=== PATIENT | female | born 1960 | race Caucasian/White ===

== ENCOUNTER 2020-02-10 00:57 | Outpatient (CLI) | payer OTHER, SELFPAY ==
[2020-02-10 18:31] LABS: SARS-CoV-2 RNA PCR Negative
== END 2020-02-10 00:58 | disposition home or self-care (01) ==
LOC: ANHCOVIDDT 00:57
PROVIDERS: PCP Family Medicine; Visit Provider Orthopaedic Surgery
DX: Z01.812 Encounter for preprocedural laboratory examination (principal); Z11.59 Encounter for screening for other viral diseases
CPT/HCPCS: 87635; C9803; U0003

== ENCOUNTER 2020-02-13 02:05 | Day surgery (SDC) | payer OTHER, SELFPAY ==
[2020-01-31 14:35] VITALS: BMI 31.1
--- NOTE | 2020-02-13 11:12 | WPDHPUPDATE1 ---
History and Physical Update Update Date/Time: 02/13/20 11:12 History and Physical has been reviewed, including an updated exam of the patient. There are NO changes in the patient's condition. Risks, benefits, and alternatives have been discussed and questions answered. Patient agrees to proceed with procedure.
[2020-02-13] MEDS: ACETAMINOPHEN 500 MG TABLET 1000 MG PO (12:22)
[2020-02-13 12:30] VITALS: BP 146/79; PULSE 69; TEMP 36.8; O2SAT 100
--- NOTE | 2020-02-13 13:22 | SUR.PREOP ---
1300- PT UPDATED ON DELAY IN OR ROOM.
--- NOTE | 2020-02-13 13:31 | WPDANESEPPF ---
Anes - Initial Pre Proc Eval Procedure: Operation Date: 02/13/20 13:30 Proposed Procedures p Left Carpal Tunnel Release - Memo Reid MD Date/Time: 02/13/20 13:31 Surgeon: Memo Reid MD Pre Op Diagnosis: Left Carpal Tunnel Syndrome Patient Data Age: 59 Gender: F Height: 5 ft 5 in Weight: 90.3 kg Last Vital Signs Temp 36.8 C 02/13/20 12:30 Pulse 69 02/13/20 12:30 BP 146/79 H 02/13/20 12:30 Pulse Ox 100 02/13/20 12:30 Allergies Allergy/AdvReac Type Severity Reaction Status Date / Time No Known Allergies Allergy Verified 01/31/20 14:30 Home Medications Medication Instructions Recorded Confirmed Type escitalopram oxalate 5 mg tablet 5 mg PO DAILY #90 tablet 09/04/19 01/31/20 Rx aspirin 81 mg chewable tablet 81 mg PO DAILY 12/08/19 01/31/20 History pantoprazole 40 mg tablet,delayed 40 mg PO QAM #90 tablet 12/08/19 01/31/20 Rx release Lacto.acidophilus-Bif.animalis 1 cap PO DAILY 01/31/20 01/31/20 History [Daily Probiotic] biotin [[place] Biotin] 1 mcg PO DAILY 01/31/20 01/31/20 History calcium carbonate [Calcium 600] 1 mg PO DAILY 01/31/20 01/31/20 History omega-3 fatty acids-fish oil [Fish 1 cap PO DAILY 01/31/20 01/31/20 History Oil] Patient hx anesthesia problems: other (slow to awaken) Family hx anesthesia problems: none PMFSH Past Medical History Medical History Anxiety Depression GERD (gastroesophageal reflux disease) Osteoporosis SVT (supraventricular tachycardia) Surgical History Surgical History H/O foot surgery History of carpal tunnel release S/P cervical spinal fusion Family History Family History Mother Family history of thyroid disease Carcinoma of colon Grandparent Family history of psoriasis Family history of malignant neoplasm Family history of congestive heart failure Father Family history of lung cancer Family history of malignant neoplasm Other Family history of cardiovascular disease Hypertension Social History Social History Smoking packs per day: 0.5 Smoking cigarettes per day: 10.0 Years smoked: 15 Smoking pack-years: 7.50 Smoking status: Former smoker Tobacco type: cigarettes Smoking end date: 07/26/98 Alcohol intake: never Substance use: never Substance use type: does not use Living arrangements: with family Gender identity (if verbalized by the patient): Female Spiritual care concerns: No Agree to blood products: Yes Anes - Eval Final PreProcedure Day of Procedure 02/13/20 13:31 Patient weight: overweight Heart: regular rate and rhythm Lungs: clear to auscultation Airway: Mallampati scale class II Neurological: alert and oriented Last oral intake: >/= 8 hours ASA classification: II Emergent: no Anesthetic plan: proceed Anesthesia type and monitoring: general GIVS and standard monitoring Informed Consent: The patient's anesthetic plan and its attendant risks and benefits were discussed with the patient/family/POA. Questions were solicited and answers provided to the satisfaction of the patient/family/POA.
[2020-02-13] MEDS: ceFAZolin 2 GM/D5W 50 ML 2 GM/50 ML BAG IVPB (14:04)
[2020-02-13 15:07] VITALS: BP 145/85; PULSE 79; RESP 12; TEMP 36.3; O2SAT 99
--- NOTE | 2020-02-13 15:07 | PM.OP ---
Procedure Note - Brief Procedure Note - Brief Date of procedure: 02/13/20 Pre-op diagnosis: Left Carpal Tunnel Syndrome Post-op diagnosis: same Procedure performed: L CTR Anesthesia: MAC Surgeon: Memo Reid MD Estimated blood loss (mL): 2 Complications: No immediate complications Condition: stable Disposition: PACU
[2020-02-13 15:35] VITALS: BP 130/80; PULSE 62; RESP 16; O2SAT 99
[2020-02-13 16:05] VITALS: BP 138/90; PULSE 71; RESP 16
--- NOTE | 2020-02-14 12:17 | OP_ITS ---
DATE OF PROCEDURE: 02/13/2020 PREOPERATIVE DIAGNOSIS: Left carpal tunnel syndrome. POSTOPERATIVE DIAGNOSIS: Left carpal tunnel syndrome. PROCEDURE: Left carpal tunnel release. ANESTHESIA: General. COMPLICATIONS: None. INDICATIONS: This is a 59-year-old female with left carpal tunnel syndrome, not responding to conservative measures. She was indicated for left carpal tunnel release. DESCRIPTION OF PROCEDURE: The patient was taken to the operating room in stable condition, placed in the supine position, and then she was given sedation and then the left upper extremity was prepped and draped sterilely from the fingers to the mid forearm. The carpal tunnel was marked with the flexed ring finger over the mid palm and the cardinal line was drawn as well. Next, Marcaine 0.5% without epinephrine was injected into the skin, into the subcutaneous tissues and the carpal tunnel region. The tourniquet was inflated and incision was made in the mid palm down to the subcutaneous tissues into the palmar fascia was identified. The palmar fascia then was incised until the carpal tunnel was identified, using a mosquito hemostat. The median nerve was then identified and then protecting the medial nerve with the hemostats placed in the carpal tunnel. The palmar fascia then was incised into the entirety down to the transcarpal ligament proximally and to the cardinal line distally. Once the transcarpal ligament was identified with direct visualization, the transcarpal ligament was incised with the Metzenbaum scissors. The carpal tunnel was completely released. There was no injury to the median nerve. The tourniquet was deflated. Bleeders were cauterized. The wound was irrigated thoroughly. The skin edges were approximated with 4-0 nylon suture. Sterile dressing was applied. The patient was then sent to recovery in stable condition. D I MT: Kierra
== END 2020-02-13 16:19 | disposition home or self-care (01) ==
PROVIDERS: PCP Family Medicine; Visit Provider Orthopaedic Surgery
PROC: (CPT 64721; principal; 2020-02-13 13:30)
DX: G56.02 Carpal tunnel syndrome, left upper limb (principal); K21.9 Gastro-esophageal reflux disease without esophagitis; I47.1 Supraventricular tachycardia; M81.0 Age-related osteoporosis without current pathological fracture; F41.8 Other specified anxiety disorders; Z79.82 Long term (current) use of aspirin; Z98.1 Arthrodesis status; Z87.891 Personal history of nicotine dependence
CPT/HCPCS: 64721; A9270; J0690; J2250; J2405; J2704; J3010

== ENCOUNTER → 2020-03-19 15:16 | Outpatient (CLI) | payer OTHER, SELFPAY ==
--- NOTE | ~2020-03-19 | XR_ITS ---
EXAMINATION: XR knee RT 3V DATE: 03/19/2020 16:19 INDICATION: Right knee pain. TECHNIQUE: 3 views of right knee were obtained. COMPARISON: None. FINDINGS: Bone alignment is normal. No fracture. There is mild osteoarthritis of medial and patellofe moral compartments. No knee joint effusion. IMPRESSION: 1. Mild right knee osteoarthritis. Reviewed, dictated and finalized at location B.
--- NOTE | ~2020-03-19 | US_ITS ---
EXAMINATION: US venous doppler LE RT DATE: 03/19/2020 15:40 INDICATION: Right lower limb pain TECHNIQUE: Grayscale ultrasound images without and with compression and Doppler ultrasound images of the right lower extremity veins were obtained. COMPARISON: None. FINDINGS: The visualized portions of right common femoral vein, profunda (deep) femoral vein, femoral vein, pop liteal vein, peroneal trunk, posterior tibial veins, peroneal veins, gastrocnemius vein and greater s aphenous vein outflow are patent. 2.5 x 1.2 x 1.7 cm hypoechoic, centrally hyperechoic mass at [facility] popliteal fossa most likely representing a popliteal lymph node with central fatty hilum. IMPRESSION: 1. No deep venous thrombosis in the right lower limb. 2. 2.5 x 1.2 x 1.7 cm mildly enlarged, likely reactive right popliteal lymph node. Reviewed, dictated and finalized at location A. IMPRESSION: 1. No deep venous thrombosis in the right lower limb. 2. 2.5 x 1.2 x 1.7 cm mildly enlarged, likely reactive right popliteal lymph no de.
--- NOTE | ~2020-03-19 | XR_ITS ---
XR foot RT min 3V 03/19/2020 16:19 INDICATION: Right foot pain PROCEDURE: 4 views right foot COMPARISON: No prior studies for comparison. FINDINGS: Fracture, dislocation or subluxation is not identified. Lisfranc joint intact. The soft tis sues appear within normal limits. No foreign bodies are identified. There are degenerative calcaneal enthesophytes. Mild osteoarthritis of the first MTP joint. IMPRESSION: 1: NO ACUTE BONE OR JOINT ABNORMALITY IDENTIFIED. Reviewed, dictated and finalized at location A.
== END ==
PROVIDERS: PCP Family Medicine; Visit Provider Family Medicine
DX: M17.11 Unilateral primary osteoarthritis, right knee (principal); M79.89 Other specified soft tissue disorders; M79.673 Pain in unspecified foot
CPT/HCPCS: 73562; 73630; 93971

== ENCOUNTER 2020-06-10 08:35 | Outpatient (CLI) | payer OTHER, SELFPAY ==
--- NOTE | ~2020-06-10 | MR_ITS ---
EXAMINATION: MR knee RT wo con DATE: 06/10/2020 10:10 INDICATION: Right knee pain. Mass behind the right knee. TECHNIQUE: Magnetic resonance imaging (MRI) of the right knee was performed without intravenous contr ast. Sequences included coronal PD-weighted FSE, coronal PD-weighted FS FSE, sagittal T2-weighted FS E, sagittal PD-weighted FS FSE and axial PD weighted fat saturated FSE. COMPARISON: None. FINDINGS: Medial compartment: Medial meniscus is normal. Partial-thickness chondral ulceration along the anterior to central weight bearing medial femoral condyle. Partial thickness cartilage loss with smooth chondral surface along t he anterior third of the medial tibial plateau. Lateral compartment: Lateral meniscus is normal. Articular cartilage is normal. Patellofemoral compartment: Deep chondral fissuring at the medial patellar facet, apical ridge and medial side of the lateral fac et with barely discernible subarticular edema at the apical ridge. Trochlear cartilage appears relati vely preserved. Ligaments and tendons: Anterior and posterior cruciate ligaments are normal. The medial collateral ligament and fibular carter ateral ligament complex are normal. The extensor mechanism is normal. The visualized medial and later al hamstring tendons as well as the iliotibial band are normal. Fluid: Physiologic amount of fluid in the joint space. No loose osteochondral bodies identified. Mild prepat ellar edema without discrete bursal fluid collection. 8 x 6 mm T2 fluid signal intensity lesion in th e popliteal fat posterior to the femoral insertion of the medial head of the gastrocnemius and ultrasound specialist ior to the semitendinosus. No evident internal flow void to suggest vascular lesion in this most like ly represents a small ganglion cyst. More caudal tiny Méndez's cyst. Osseous/other: Bone alignment is normal. Low signal intensity bone island at the posterior lateral femoral condyle. No fracture or pathologic marrow replacing process. No abnormal soft tissue masses identified. IMPRESSION: 1. Mild medial and patellofemoral osteoarthritis with moderate grade chondromalacia. 2. 8 x 6 mm T2 fluid intensity lesion in the popliteal fat posterior to the lateral epicondylar femur is likely representing a small ganglion cyst. No soft tissue masses identified. Reviewed, dictated and finalized at location H. CUTTER DIAMOND IMPRESSION: 1. Mild medial and patellofemoral osteoarthritis with moderate grade chondromal acia. 2. 8 x 6 mm T2 fluid intensity lesion in the popliteal fat posterior to the lat eral epicondylar femur is likely representing a small ganglion cyst. No soft ti ssue masses identified.
== END 2020-06-10 08:36 | disposition home or self-care (01) ==
PROVIDERS: PCP Family Medicine; Visit Provider Orthopaedic Surgery
DX: M17.11 Unilateral primary osteoarthritis, right knee (principal)
CPT/HCPCS: 73721

== ENCOUNTER → 2020-06-13 13:25 | Outpatient (CLI) | payer OTHER, SELFPAY ==
--- NOTE | ~2020-06-13 | MM_ITS ---
EXAMINATION: MM screening [facility] BI w aura HISTORY: Screening mammogram TECHNIQUE: Craniocaudal and mediolateral oblique 3-D tomosynthesis images were obtained and synthetic 2-D images were generated. CAD analysis was submitted and interpreted. COMPARISON: 05/15/2019, 04/29/2018, 04/26/2017 BREAST PARENCHYMAL COMPOSITION: There are scattered areas of fibroglandular density. FINDINGS: There is no evidence of suspicious mass, calcification, or architectural distortion to sugg est malignancy in either breast. There has been no suspicious interval change. IMPRESSION: 1. No mammographic evidence of malignancy. 2. Recommend routine screening mammography in one year. BI-RADS Category 1: Negative Reviewed, dictated and finalized at location A. FACULTY
== END ==
PROVIDERS: PCP Family Medicine; Visit Provider Nurse Practitioner
DX: Z12.31 Encounter for screening mammogram for malignant neoplasm of breast (principal)
CPT/HCPCS: 77063; 77067

== ENCOUNTER 2021-08-19 07:45 | Outpatient (CLI) | payer BC, SELFPAY ==
--- NOTE | ~2021-08-19 | US_ITS ---
EXAMINATION: US abdomen complete EXAM DATE: 08/19/2021 08:12 INDICATION: R10.11 - Right upper quadrant pain. TECHNIQUE: Multiple grayscale and Doppler images of the complete abdomen were obtained (by a technolo gist who performed the scan) and subsequently reviewed. Comparison is made to prior examination from 02/13/2019. FINDINGS: The abdominal aorta is normal in caliber. Visualized portion IVC is patent. The pancreatic head a nd body are normal in appearance. The pancreatic tail is not visualized. The liver has normal echogenicity and contour. There are no focal liver lesions identified. There is no evidence of intrahepatic biliary duct dilation. Portal venous flow was seen in the hepatopedal , normal direction and has normal Doppler waveform. Common bile duct measures 4 mm, which is normal. The gallbladder wall is normal in thickness, with ex pected amount of distention. No sonographic evidence of pericholecystic fluid. There is no cholelit hiases. Technologist performing exam reports patient did not demonstrate sonographic Hayes's sign. Please note that this sign is less reliable in patients who have received pain medication. Right kidney: There is normal contour and echogenicity. It measures 11.8 x 4.1 x 5.6 centimeters. There are no focal renal lesions identified. There is no hydronephrosis. Left kidney: There is normal contour and echogenicity. It measures 11.8 x 5.4 x 4.8 centimeters. Th ere is a cyst measuring 3.4 cm. There is no hydronephrosis. The spleen measures 11.7 centimeters and is morphologically normal. IMPRESSION: Unremarkable complete abdominal ultrasound exam. Reviewed, dictated and finalized at location A. CLEANER STRE[address] LIGHT
--- NOTE | ~2021-08-19 | XR_ITS ---
EXAMINATION: XR chest 2V 08/19/2021 08:20 INDICATION: Chest pain PROCEDURE: 2 view chest COMPARISON: 07/14/2019 FINDINGS: The lungs are clear. The cardiomediastinal silhouette is within normal limits. There are no pleural effusions. There is no pneumothorax suspected. IMPRESSION: 1: NO ACUTE CARDIOPULMONARY DISEASE. Reviewed, dictated and finalized at location B. 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
== END 2021-08-19 07:46 ==
PROVIDERS: PCP Family Medicine; Visit Provider Family Medicine
DX: R10.11 Right upper quadrant pain (principal); M54.9 Dorsalgia, unspecified
CPT/HCPCS: 71046; 76700

== ENCOUNTER → 2021-10-06 17:47 | Outpatient (CLI) | payer BC, SELFPAY ==
--- NOTE | ~2021-10-06 | MM_ITS ---
EXAMINATION: MM screening [facility] BI w aura HISTORY: Screening mammogram TECHNIQUE: Craniocaudal and mediolateral oblique 3-D tomosynthesis images were obtained and synthetic 2-D images were generated. CAD analysis was submitted and interpreted. COMPARISON: 06/13/2020, 05/15/2019, 04/29/2018 BREAST PARENCHYMAL COMPOSITION: There are scattered areas of fibroglandular density. FINDINGS: There is no evidence of suspicious mass, calcification, or architectural distortion to sugg est malignancy in either breast. There has been no suspicious interval change. IMPRESSION: 1. No mammographic evidence of malignancy. 2. Recommend routine screening mammography in one year. BI-RADS Category 1: Negative Reviewed, dictated and finalized at location A.
== END ==
PROVIDERS: Visit Provider Nurse Practitioner
DX: Z12.31 Encounter for screening mammogram for malignant neoplasm of breast (principal)
CPT/HCPCS: 77063; 77067

== ENCOUNTER → 2021-10-30 17:54 | Outpatient (CLI) | payer BC, SELFPAY ==
--- NOTE | ~2021-10-30 | DEXA_ITS ---
Bone Density Report Name: GEORGE GUNN Age: 61 Sex: Female Ethnicity: White Date of : 1960 Indication: postmenopausal; screening for osteoporosis; height loss; Referring Provider: José Miguel, Raquel Study: Bone densitometry was performed. Exam Date: October 30, 2021 Accession number: [id number] Bone Density: Region BMD T-score Z-score Classification AP Spine (L1-L4) 1.110 0.6 1.9 Normal Femoral Neck (Left) 0.700 -1.3 -0.1 Osteopenia Total Hip (Left) 0.907 -0.3 0.6 Normal Femoral Neck (Right) 0.788 -0.5 0.7 Normal Total Hip (Right) 0.962 0.2 1.1 Normal Total Hip Mean 0.935 -0.1 0.9 Normal World Health Organization criteria for BMD impression classify patients as: Normal (T-score at or above -1.0), Osteopenia (T-score between -1.0 and -2.5), or Osteoporosis (T-score at or below -2.5). 10-year Fracture Risk(1): Major Osteoporotic Fracture 7.1% Hip Fracture 0.5% Reported Risk Factors: [place] (), Neck BMD=0.700, BMI=30.8 (1) FRAX(R) Version 3.08. Fracture probability calculated for an untreated patient. Fracture probability may be lower if the patient has received treatment. Previous Exams: Region Exam Age BMD T-score BMD Change BMD Change Date g/cm2 vs Baseline vs Previous AP Spine(L1-L4) 10/30/2021 61 1.110 0.6 0.139 0.104 04/29/2018 57 1.006 -0.4 0.035* 0.035* 04/17/2015 54 0.971 -0.7 Total Hip(Left) 10/30/2021 61 0.907 -0.3 -0.025 0.000 04/29/2018 57 0.907 -0.3 -0.025 -0.025 04/17/2015 54 0.932 -0.1 Total Hip(Right) 10/30/2021 61 0.962 0.2 -0.012 0.010 04/29/2018 57 0.952 0.1 -0.021 -0.021 04/17/2015 54 0.973 0.3 *Denotes significance at 95% confidence level, LSC for AP Spine = 0.022 g/cm2, LSC for Total Hip = 0.027 g/cm2 Clinical Information Provided by Patient: Has used the following medications: Vitamin D, Calcium Patient maximum height was 67.0 Menopause Age: 53 No regular weight bearing exercise Onset of menses at age 13 Number of children 2 Impression: The patient has low bone mass, based on the Left Femoral Neck T-score. The patient has an estimated ten-year risk of hip fracture of 0.5% and an estimated ten-year risk of major fracture of 7.1%, based on the WHO FRAX algorithm. No significant bone loss was observed. Discussion: BONE DE
== END ==
PROVIDERS: Visit Provider Nurse Practitioner
DX: Z13.820 Encounter for screening for osteoporosis (principal); M85.852 Other specified disorders of bone density and structure, left thigh
CPT/HCPCS: 77080

== ENCOUNTER 2022-06-29 11:10 | Outpatient (CLI) | payer BC, SELFPAY ==
[2022-06-29 12:19] LABS: Alanine Aminotransferase 21 U/L (6-35); Albumin Level 4.5 g/dL (3.5-5.1); Alkaline Phosphatase 87 U/L (38-126); Anion Gap 8 mmol/L (8-16); Aspartate Amino Transferase 21 U/L (14-36); Bilirubin,Total 0.7 mg/dL (0.2-1.3); Blood Urea Nitrogen 15 mg/dL (7-17); Calcium 9.5 mg/dL (8.4-10.2); Carbon Dioxide 30 mmol/L (22-30); Chloride 104 mmol/L (98-107); Cholesterol 190 mg/dL (0-200); Estimated Glomerular Filt Rate > 60; Glucose 89 mg/dL (65-110); HDL Direct 55 mg/dL; Potassium 4.3 mmol/L (3.4-5.0); Sodium 142 mmol/L (137-145); Triglycerides 103 mg/dL (<150)
[2022-06-29 12:23] LABS: Rheumatoid Factor < 8.6 IU/ML (<12)
[2022-06-29 12:30] LABS: LDL Cholesterol Direct 91 mg/dL
[2022-06-29 12:49] LABS: Thyroid Stimulating Hormone 0.031 uIU/mL (0.465-4.680)
== END 2022-06-29 11:11 | disposition home or self-care (01) ==
LOC: ANHLAB 11:12
PROVIDERS: PCP Emergency Medicine; Visit Provider Emergency Medicine
DX: F41.9 Anxiety disorder, unspecified (principal); F32.9 Major depressive disorder, single episode, unspecified; M25.50 Pain in unspecified joint; K21.9 Gastro-esophageal reflux disease without esophagitis; Z13.0 Encounter for screening for diseases of the blood and blood-forming organs and certain disorders involving the immune mechanism
CPT/HCPCS: 36415; 80053; 80061; 84443; 86038; 86430

== ENCOUNTER 2022-08-04 15:52 | Outpatient (CLI) | payer BC, SELFPAY ==
[2022-08-04 16:19] LABS: Alanine Aminotransferase 26 U/L (6-35); Aspartate Amino Transferase 25 U/L (14-36)
== END 2022-08-04 15:53 | disposition home or self-care (01) ==
LOC: ANHLAB 15:53
PROVIDERS: PCP Emergency Medicine; Visit Provider Podiatrist Foot & Ankle Surgery
DX: B35.1 Tinea unguium (principal)
CPT/HCPCS: 36415; 84450; 84460

== ENCOUNTER 2022-09-28 08:58 | Outpatient (CLI) | payer BC, SELFPAY ==
--- NOTE | ~2022-09-28 | XR_ITS ---
EXAMINATION: XR foot RT standing 2V DATE: 09/28/2022 10:03 INDICATION: Rheumatoid arthritis without rheumatoid factor. TECHNIQUE: 2 views of right foot with weightbearing were obtained. COMPARISON: None. FINDINGS: Bone alignment is normal. No fracture. There is mild osteoarthritis of fourth distal interp halangeal joint. There are enthesophytes at the posterior and plantar aspects of calcaneal tuberosity . IMPRESSION: 1. No evidence of inflammatory arthropathy. Reviewed, dictated and finalized at location A. EAD WORKER
--- NOTE | ~2022-09-28 | XR_ITS ---
XR lumbar spine min 4V DATE: 09/28/2022 10:03 INDICATION: Rheumatoid arthritis TECHNIQUE: AP, lateral, coned lateral lumbosacral and bilateral oblique views COMPARISON: None FINDINGS: There is degenerative changes apophyseal joints in the lower lumbar and lumbosacral area wi th associated grade 1 anterolisthesis at L5-S1. Multilevel degenerative disc disease, particularly severe at L1-2, moderately severe to L4-5 and L5-S 1. No fracture or bone destruction or spondylolisthesis is noted. The included lower thoracic and lumbar pedicles are intact. The sacroiliac joints are intact. Osteopenia. IMPRESSION: Multilevel degenerative disc disease, very severe at L1-2, moderately severe at L4-5 and L5-S1 Prominent degenerative changes apophyseal joints in the lower lumbar levels secondary with associated grade 1 anterolisthesis at L5-S1 Reviewed, dictated and finalized at location B. 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
--- NOTE | ~2022-09-28 | XR_ITS ---
EXAMINATION: XR foot LT standing 2V DATE: 09/28/2022 10:03 INDICATION: Rheumatoid arthritis without rheumatoid factor. TECHNIQUE: 2 views of left foot standing were obtained. COMPARISON: None. FINDINGS: There is mild hallux valgus. No fracture. There is mild osteoarthritis of first metatarsoph alangeal joint, talonavicular joint, and fourth distal interphalangeal joint. There are enthesophytes at the posterior and plantar aspects of calcaneal tuberosity. IMPRESSION: 1. Mild polyarticular osteoarthritis. 2. Mild hallux valgus. Reviewed, dictated and finalized at location A. ER TYPE BAR AND SEGMENT
--- NOTE | ~2022-09-28 | XR_ITS ---
EXAM: XR hand BI arthritis min 3V DATE: 09/28/2022 10:03 HISTORY: M06.041 - Rheumatoid arthritis without rheumatoid factor,... . COMPARISON: X-ray left hand 02/13/2019. FINDINGS: Mildly decreased mineralization. Typical osteoarthritic joint space changes in the DIP christiana nts of the fingers, PIP joints of the thumbs, and second and third MCP joints. Hooked osteophytes off of several metacarpal heads. Changes are most severe in the right third MCP joint, where there are a lso large subchondral cysts. Bilateral ulnar negative variance. No acute fracture or dislocation. Old right hamate fracture. IMPRESSION: Polyarticular osteoarthritis of the hands. Reviewed, dictated and finalized at location K. DITER SERVICE ORDER
--- NOTE | ~2022-09-28 | XR_ITS ---
XR sacroiliac joints min 3V DATE: 09/28/2022 10:03 INDICATION: Rheumatoid arthritis TECHNIQUE: AP and bilateral oblique views COMPARISON: None FINDINGS: The sacroiliac joints are intact without evidence of erosive change, ankylosis or significa nt degenerative change. Moderately severe degenerative disc disease at L4-5 and L5-S1. IMPRESSION: Negative sacroiliac joints Reviewed, dictated and finalized at Location A. Reviewed, dictated and finalized at location B. TICE REPRESENTATIVE IMPRESSION: Negative sacroiliac joints
== END 2022-09-28 08:59 ==
LOC: MICIMG 09:00
PROVIDERS: PCP Emergency Medicine; Visit Provider Internal Medicine
DX: M06.041 Rheumatoid arthritis without rheumatoid factor, right hand (principal); M06.042 Rheumatoid arthritis without rheumatoid factor, left hand; M19.041 Primary osteoarthritis, right hand; M19.042 Primary osteoarthritis, left hand; M19.071 Primary osteoarthritis, right ankle and foot; M20.11 Hallux valgus (acquired), right foot; M51.36 Other intervertebral disc degeneration, lumbar region
CPT/HCPCS: 72110; 72202; 73130; 73620

== ENCOUNTER 2022-12-04 09:42 | Outpatient (CLI) | payer BC, SELFPAY ==
--- NOTE | ~2022-12-04 | MR_ITS ---
MRI of the right hand CLINICAL HISTORY: Pain TECHNIQUE: Axial T1-weighted, T1 fat-sat, and T2 fat-sat images, sagittal T1-weighted and T2 fat-sat images, and coronal T1-weighted and T2 fat-sat images were performed. Following intravenous administr ation of 17 cc MultiHance gadolinium, T1-weighted fat-sat imaging was performed in the axial and sagi ttal planes. FINDINGS: There is no fracture or osteomyelitis. There is severe degenerative change at the third met acarpophalangeal joint with joint space narrowing and subchondral cystic change about the joint. Ther e is moderate degenerative change of the second metacarpophalangeal joint. There are mild to moderate degenerative changes throughout the distal interphalangeal joints of the hand. No significant joint effusion identified. Flexor and extensor tendons are intact. No soft tissue mass or fluid collection evident. No suspicious postcontrast enhancement identified. IMPRESSION: Severe osteoarthritis of the third metacarpophalangeal joint. Moderate degenerative change of the second MCP joint and the DIP joints. Reviewed, dictated and finalized at location .
--- NOTE | ~2022-12-04 | MR_ITS ---
MRI of the left hand CLINICAL HISTORY: Pain TECHNIQUE: Axial T1-weighted, T2 fat-sat, STIR, and T1 fat-sat images, coronal T1-weighted and STIR i mages, and sagittal T1-weighted and STIR images were performed. Following intravenous administration of 70 cc MultiHance gadolinium, T1-weighted fat-sat imaging was performed in the axial and sagittal p lanes. FINDINGS: No significant bone marrow signal abnormality seen. There is no bone marrow edema, fracture , or evidence for osteomyelitis. There is mild to moderate osteoarthritic change of the second and th ird metacarpophalangeal joints. There is a small ganglion cyst along the dorsal margin of the third m etacarpal head, measuring 5 mm in diameter. There is mild degenerative change at the first metacarpop halangeal joint. There is mild degenerative change diffusely of the DIP joints. Flexor and extensor tendons are intact. No other soft tissue mass or fluid collection evident. No suspicious postcontrast enhancement identified. IMPRESSION: Scattered degenerative changes, as noted above, worst at the second and third metacarpophalangeal christiana nts. 5 mm ganglion cyst along the dorsal margin of the third metacarpal head. Reviewed, dictated and finalized at [facility]. IMPRESSION: Scattered degenerative changes, as noted above, worst at the second and third m etacarpophalangeal joints. 5 mm ganglion cyst along the dorsal margin of the third metacarpal head.
== END 2022-12-04 09:43 ==
PROVIDERS: PCP Internal Medicine; Visit Provider Internal Medicine
DX: M06.041 Rheumatoid arthritis without rheumatoid factor, right hand (principal); M06.042 Rheumatoid arthritis without rheumatoid factor, left hand; M19.041 Primary osteoarthritis, right hand; M19.042 Primary osteoarthritis, left hand
CPT/HCPCS: 73220; A9577

== ENCOUNTER → 2022-12-07 12:39 | Outpatient (CLI) | payer BC, SELFPAY ==
--- NOTE | ~2022-12-07 | MM_ITS ---
EXAMINATION: MM screening [facility] BI w aura HISTORY: Screening mammogram TECHNIQUE: Craniocaudal and mediolateral oblique 3-D tomosynthesis images were obtained and synthetic 2-D images were generated. CAD analysis was submitted and interpreted. COMPARISON: 10/06/2021, 06/13/2020, 05/15/2019 BREAST PARENCHYMAL COMPOSITION: There are scattered areas of fibroglandular density. FINDINGS: No suspicious mass, calcification, or architectural distortion are identified in either jared ast to suggest malignancy. There has been no suspicious interval change. IMPRESSION: 1. No mammographic evidence of malignancy. 2. Recommend routine screening mammography in one year. BI-RADS Category 1: Negative Reviewed, dictated and finalized at location A.
== END ==
PROVIDERS: Visit Provider Nurse Practitioner
DX: Z12.31 Encounter for screening mammogram for malignant neoplasm of breast (principal)
CPT/HCPCS: 77063; 77067

== ENCOUNTER 2023-06-29 10:21 | Outpatient (CLI) | payer BC, SELFPAY ==
[2023-06-29 10:55] LABS: Alanine Aminotransferase 24 U/L (6-35); Aspartate Amino Transferase 28 U/L (14-36)
== END 2023-06-29 10:22 | disposition home or self-care (01) ==
LOC: ANHLAB 10:23
PROVIDERS: PCP Emergency Medicine; Visit Provider Podiatrist Foot & Ankle Surgery
DX: B35.1 Tinea unguium (principal)
CPT/HCPCS: 36415; 84450; 84460

== ENCOUNTER 2023-09-27 10:41 | Outpatient (CLI) | payer BC, SELFPAY ==
[2023-09-27 11:31] LABS: Alanine Aminotransferase 23 U/L (6-35); Aspartate Amino Transferase 24 U/L (14-36)
== END 2023-09-27 10:42 | disposition home or self-care (01) ==
LOC: ANHLAB 10:43
PROVIDERS: PCP Nurse Practitioner Family; Visit Provider Podiatrist Foot & Ankle Surgery
DX: B35.1 Tinea unguium (principal)
CPT/HCPCS: 36415; 84450; 84460

== ENCOUNTER 2023-12-27 11:08 | Outpatient (CLI) | payer BC, SELFPAY ==
[2023-12-27 12:13] LABS: Alanine Aminotransferase 17 U/L (6-35); Aspartate Amino Transferase 34 U/L (14-36)
== END 2023-12-27 11:09 | disposition home or self-care (01) ==
LOC: ANHLAB 11:11
PROVIDERS: PCP Nurse Practitioner Family; Visit Provider Podiatrist Foot & Ankle Surgery
DX: B35.1 Tinea unguium (principal)
CPT/HCPCS: 36415; 84450; 84460

== ENCOUNTER 2024-01-31 08:47 | Outpatient (CLI) | payer BC, SELFPAY ==
--- NOTE | ~2024-01-31 | MR_ITS ---
MR cervical spine wo con Ordering provider: Esthela Langston History: 63 years Female with . CERVICAL MYELOPATHY . Comparison: None. Technique: MRI cervical spine without contrast. FINDINGS: CERVICAL SPINAL CORD/CRANIAL CERVICAL JUNCTION: Normal in signal and caliber. Postoperative changes s een anteriorly. Minimal anterolisthesis at the level of C7-T1. CERVICAL VERTEBRAL BODIES: Metallic artifacts are seen in the vertebrae. DISK SPACES: Narrowing of the disc C6-C7 and C7-T1. Multilevel facet joint disease. C2-C3: No stenosis. C3-C4: Mild spinal canal stenosis secondary to broad based disc bulge. bilateral intervertebral fora danuta narrowing and the root compression. C4-C5: Mild spinal canal stenosis secondary to broad based disc bulge. Bilateral narrowing of the fo ramina with root compression. C5-C6: No stenosis. C6-C7: No stenosis. C7-T1: No stenosis. VISUALIZED PARASPINOUS SOFT TISSUES: Normal. IMPRESSION: 1. No acute osseous abnormality. 2. Postoperative changes at multiple levels. 3. Minimal anterolisthesis at the level of C7-T1. 4. C3-C4, and C4-C5 mild spinal canal stenosis with intervertebral foraminal narrowing and the root compression. Reviewed, dictated and finalized at location A. IMPRESSION: 1. No acute osseous abnormality. 2. Postoperative changes at multiple levels. 3. Minimal anterolisthesis at the level of C7-T1. 4. C3-C4, and C4-C5 mild spinal canal stenosis with intervertebral foraminal n arrowing and the root compression.
== END 2024-01-31 08:48 ==
DX: M47.12 Other spondylosis with myelopathy, cervical region (principal)
CPT/HCPCS: 72141

== ENCOUNTER 2024-02-07 13:29 | Outpatient (CLI) | payer BC, SELFPAY ==
--- NOTE | ~2024-02-07 | MM_ITS ---
EXAMINATION: MM screening tony BI w aura HISTORY: Screening TECHNIQUE: Craniocaudal and mediolateral oblique 3-D tomosynthesis images were obtained and synthetic 2-D images were generated. CAD analysis was submitted and interpreted. COMPARISON: Comparison to multiple prior studies sequentially, with oldest reviewed study dated 08/2016. BREAST PARENCHYMAL COMPOSITION: Not dense: There are scattered areas of fibroglandular density. FINDINGS: There is no evidence of suspicious mass, calcification, or architectural distortion to sugg est malignancy in either breast. There has been no suspicious interval change. IMPRESSION: 1. No mammographic evidence of malignancy. 2. Recommend routine screening mammography in one year. BI-RADS Category 1: Negative Reviewed, dictated and finalized at location B.
== END 2024-02-07 13:30 ==
LOC: MICIMG 13:30
PROVIDERS: PCP Nurse Practitioner Family; Visit Provider Nurse Practitioner
DX: Z12.31 Encounter for screening mammogram for malignant neoplasm of breast (principal)
CPT/HCPCS: 77063; 77067

== ENCOUNTER 2024-02-14 09:50 | Outpatient (CLI) | payer BC, SELFPAY ==
--- NOTE | ~2024-02-14 | CT_ITS ---
CT cervical spine wo con Ordering provider: Avelina Zapata History: . Cervical myelopathy . Comparison: None. Technique: CT of the cervical spine was performed without contrast. Sagittal and coronal reformatted images were also obtained and reviewed. Automated exposure control and iterative reconstruction dimitrios hnique were employed. The dose-length product was 167.20 mGy-cm. FINDINGS: VERTEBRAE: Minimal anterolisthesis at the level of C7-T1 and T3/T4. No subluxation or acute fracture. The occipital condyles are intact. Postoperative changes seen anteriorly at the level of C4, C5 and C6.. DISC SPACES: Disc spacers seen at the level of C4-C5 and C5-C6. Degenerative disc disease seen at the level of C3-C4 and C6-C7 osteoarthritic changes of the middle atlantoaxial joint is seen. Multileve l facet joint disease. Multilevel uncovertebral joint osteoarthritic changes. Bilateral narrowing of the foramina at the level of C3-C4, right C4-C5, right C5-C6 PARASPINOUS SOFT TISSUES: Normal. IMPRESSION: No acute osseous abnormality cervical spine. Postoperative changes. Multilevel degenerative disc disease. Reviewed, dictated and finalized at location A.
== END 2024-02-14 09:51 ==
PROVIDERS: PCP Nurse Practitioner Family
DX: M50.30 Other cervical disc degeneration, unspecified cervical region (principal)
CPT/HCPCS: 72125

== ENCOUNTER 2024-02-28 11:46 | Outpatient (CLI) | payer BC, SELFPAY ==
[2024-02-28 18:52] LABS: Alanine Aminotransferase 18 U/L (6-35); Albumin Level 4.4 g/dL (3.5-5.1); Alkaline Phosphatase 65 U/L (38-126); Anion Gap 6 mmol/L (4-12); Aspartate Amino Transferase 34 U/L (14-36); Bilirubin,Total 0.8 mg/dL (0.2-1.3); Blood Urea Nitrogen 10 mg/dL (7-17); Calcium 9.7 mg/dL (8.4-10.2); Carbon Dioxide 33 mmol/L (22-30); Chloride 100 mmol/L (98-107); Cholesterol 180 mg/dL (0-200); Estimated Glomerular Filt Rate > 60; Glucose 74 mg/dL (65-110); HDL Direct 53 mg/dL; Potassium 4.8 mmol/L (3.4-5.0); Sodium 139 mmol/L (137-145); Triglycerides 95 mg/dL (<150)
[2024-02-28 19:03] LABS: LDL Cholesterol Direct 85 mg/dL
[2024-02-28 19:10] LABS: Basophils Absolute Auto 0.1 K/mm3 (0.0-0.1); Basophils Percent Auto 0.9 % (0.2-1.2); Eosinophils Absolute Auto 0.2 K/mm3 (0-0.3); Eosinophils Percent Auto 2.6 % (0-4.4); Hematocrit 44.8 % (37.0-47.0); Hemoglobin 14.6 g/dL (12.0-15.0); Immature Granulocyte Absolute 0.01 K/mm3 (0.00-0.031); Immature Granulocyte Percent A 0.2 % (0-0.5); Lymphocytes Absolute Auto 1.69 K/mm3 (0.9-3.2); Lymphocytes Percent Auto 29.6 % (18.3-44.2); Mean Corpuscular HGB Conc 32.6 g/dl (32-36); Mean Corpuscular Hemoglobin 32.5 pg (26-34); Mean Corpuscular Volume 99.8 fl (80-100); Mean Platelet Volume 11.6 fl (7.4-10.4); Monocytes Absolute Auto 0.5 K/mm3 (0.1-0.6); Monocytes Percent Auto 8.8 % (2.6-8.5); Neutrophils Absolute Auto 3.3 K/mm3 (1.3-6.7); Neutrophils Percent Auto 57.9 % (45.5-73.1); Platelet Count Result 184 k/mm3 (150-375); Red Blood Count 4.49 M/mm3 (4.2-5.4); Red Cell Distribution Width 12.3 % (11.5-14.5); White Blood Count 5.7 K/mm3 (4.5-10.0)
[2024-02-28 20:21] LABS: Thyroid Stimulating Hormone Reflex 0.029 uIU/mL (0.465-4.68)
[2024-02-28 21:21] LABS: Free T4 Free Thyroxine Reflex 1.77 ng/dL (0.78-2.19)
[2024-02-28 22:31] LABS: Total Triiodothyronine (T3) 1.37 NG/ML (0.97-1.69)
[2024-02-28 23:55] LABS: Hemoglobin A1C 5.3 % (<5.7)
== END 2024-02-28 11:47 | disposition home or self-care (01) ==
LOC: ANHGOSHLAB 11:48
PROVIDERS: PCP Nurse Practitioner Family; Visit Provider Nurse Practitioner Family
DX: M06.041 Rheumatoid arthritis without rheumatoid factor, right hand (principal); M06.042 Rheumatoid arthritis without rheumatoid factor, left hand; M15.9 Polyosteoarthritis, unspecified; K21.9 Gastro-esophageal reflux disease without esophagitis; R73.01 Impaired fasting glucose; I47.19 Other supraventricular tachycardia
CPT/HCPCS: 36415; 80053; 80061; 83036; 84439; 84443; 84480; 85025

== ENCOUNTER 2024-06-26 11:29 | Outpatient (CLI) | payer BC, SELFPAY ==
--- NOTE | ~2024-06-26 | XR_ITS ---
Right Shoulder Technique: AP and scapular Y views were obtained. Clinical History: Pain Findings: No fracture or dislocation is seen. Osseous alignment is anatomic. The glenohumeral and acr omioclavicular joint spaces are preserved. Soft tissues are unremarkable. Impression: Unremarkable right shoulder radiographs. Reviewed, dictated and finalized at [facility]. GER OF SELECTION AND ASSESSMENT Impression: Unremarkable right shoulder radiographs.
--- NOTE | ~2024-06-26 | XR_ITS ---
Left Shoulder Technique: AP and scapular Y views were obtained. Clinical History: Pain Findings: No fracture or dislocation is seen. Osseous alignment is anatomic. The glenohumeral and acr omioclavicular joint spaces are preserved. Soft tissues are unremarkable. Impression: Unremarkable left shoulder radiographs. Reviewed, dictated and finalized at [facility]. 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
== END 2024-06-26 11:30 | disposition home or self-care (01) ==
PROVIDERS: PCP Nurse Practitioner Family; Visit Provider Nurse Practitioner Family
DX: M25.511 Pain in right shoulder (principal); M25.512 Pain in left shoulder
CPT/HCPCS: 73030

== ENCOUNTER 2024-07-10 14:21 | Outpatient (CLI) | payer BC, SELFPAY ==
--- NOTE | ~2024-07-10 | MR_ITS ---
EXAMINATION: MR shoulder LT wo con DATE: 07/11/2024 08:39 INDICATION: Left shoulder pain TECHNIQUE: Magnetic resonance imaging (MRI) of the left shoulder was performed without intravenous co ntrast. Sequences included axial PD-weighted FS FSE, coronal oblique PD-weighted FS FSE, coronal obli que T2-weighted FS FSE, sagittal PD-weighted FS FSE, and sagittal T1-weighted SE. COMPARISON: None. FINDINGS: Coracoacromial arch: The acromion undersurface is curved in morphology (type II). The coracoacromial ligament is normal. T iny anterior subacromial spur. Mild acromioclavicular osteoarthritis with small loose body versus het erotopic ossicle at the dorsal aspect the joint space. Rotator cuff: Mild supraspinatus tendinopathy with small full-thickness tear along the superior facet footplate of the supraspinatus tendon which measures 7 mm AP and 1.5 cm medial collateral. Full-thickness tear is superimposed over a larger partial-thickness articular sided tear which extends to involve the more a nterior supraspinatus and into the more posterior conjoined portion of the supraspinatus and infraspi natus tendons. The more posterior infraspinatus and teres minor tendons are normal. Mild subscapulari s tendinopathy with small split tear between the portion of the tendon attached to the lesser tuberos ity and the bursal side of the tendon which remains attached to the intact transverse humeral ligamen t. This allows partial subluxation of the long head biceps tendon across the medial rim of the cephal ad aspect of the intertubercular groove. Normal rotator cuff muscle bulk and signal. Biceps tendon, glenoid labrum and glenohumeral cartilage: Long head of the biceps tendon is normal. Glenoid labrum is normal. Glenohumeral cartilage is normal. Fluid: Small glenohumeral joint effusion with extension of a small amount of fluid along the biceps tendon s mukund and into the deep subscapular bursa. There is additional fluid extending into the subacromial/s ubdeltoid bursa through the full-thickness rotator cuff tear. Bones: Normal marrow signal with no edema, fracture or abnormal marrow replacing process. Mild cystic change at the middle facet of the greater tuberosity. IMPRESSION: 1. Partial thickness articular sided tear of the supraspinous and conjoined portion of the and supras pinatus and infraspinatus tendon with 7 mm wide full-thickness component along the superior facet libertad tplate of the supraspinatus tendon. 2. Mild subscapularis tendinopathy with very small split tear between the cephalad portion of the ten don attached the lesser tuberosity and the bursal side of the tendon which remains attached to the in tact transverse humeral ligament. 3. Mild acromioclavicular osteoarthritis. Reviewed, dictated and finalized at location A. TH CLUB ATTENDANT IMPRESSION: 1. Partial thickness articular sided tear of the supraspinous and conjoined por tion of the and supraspinatus and infraspinatus tendon with 7 mm wide full-thic kness component along the superior facet footplate of the supraspinatus tendon. 2. Mild subscapularis tendinopathy with very small split tear between the cepha lad portion of the tendon attached the lesser tuberosity and the bursal side of the tendon which remains attached to the intact transverse humeral ligament. 3. Mild acromioclavicular osteoarthritis.
--- NOTE | ~2024-07-10 | MR_ITS ---
MRI of the right shoulder Technique: Axial proton-density fat-sat images, coronal proton density fat-sat and T2 fat-sat images, and sagittal T1-weighted and T2 fat-sat images were acquired. Clinical History: Pain Findings: There is mild degenerative changes AC joint. Coracoclavicular, coracoacromial, and coracohu meral ligaments are intact. There is moderate rotator cuff tendinosis without definite partial or full-thickness tear of the supr aspinatus or infraspinatus tendon. Subscapularis tendon intact with moderate tendinosis. Tendon of th e long head of the biceps is probably intact. No definite labral tear seen. Inferior glenohumeral ligament is intact. There is minimal glenohumeral joint effusion. No fluid dist ention of the subacromial/subdeltoid bursa. No muscle atrophy or edema. No degenerative change of the glenohumeral joint. Impression: [id number] rotator cuff tendinosis without definite tear. Mild AC joint degenerative change. Reviewed, dictated and finalized at [facility]. ER OPERATOR / GRADER Impression: [id number] rotator cuff tendinosis without definite tear. Mild AC joint degenerative change.
== END 2024-07-10 14:22 | disposition home or self-care (01) ==
LOC: GOSHIMG 14:21
PROVIDERS: PCP Nurse Practitioner Family; Visit Provider Nurse Practitioner Family
DX: M19.012 Primary osteoarthritis, left shoulder (principal); M19.011 Primary osteoarthritis, right shoulder
CPT/HCPCS: 73221

== ENCOUNTER 2024-07-11 01:46 | Day surgery (SDC) | payer BC, SELFPAY ==
[2024-07-03 14:44] VITALS: BMI 25.8
[2024-07-11 12:26] VITALS: BP 122/76; PULSE 82; RESP 18; TEMP 36.1; O2SAT 100
[2024-07-11] MEDS: LACTATED RINGERS 1,000 ML 150 ML IV CONT (12:37)
--- NOTE | 2024-07-11 13:25 | P.PNAN_ITS ---
Anes - Initial Pre Proc Eval Procedure: Operation Date: 07/11/24 13:30 Proposed Procedures p Colonoscopy - Lyndon Rizo MD Date/Time: 07/11/24 13:25 Surgeon: Lyndon Rizo MD Pre Op Diagnosis: Family history of malignant neoplasm Patient Data Age: 63 Gender: F Height: 1.65 m Weight: 70 kg Last Vital Signs Temp 36.1 C L 07/11/24 12:26 Pulse 82 07/11/24 12:26 Resp 18 07/11/24 12:26 BP 122/76 07/11/24 12:26 Pulse Ox 100 07/11/24 12:26 O2 Del Method Room Air 07/11/24 12:26 Allergies Allergy/AdvReac Type Severity Reaction Status Date / Time venom-wasp Allergy Severe Hives Verified 07/11/24 12:23 Home Medications ?Medication ?Instructions ?Recorded ?Confirmed ?Type aspirin 81 mg chewable tablet 81 mg PO DAILY 12/08/19 07/11/24 History (Sarah Chewable Low Dose Aspirin) Lactobacillus 1 cap PO DAILY 01/31/20 07/11/24 History acidophilus-Bifidobac.animalis 2.5 billion cell capsule (Daily Probiotic) calcium carbonate (Calcium 600) 1 mg PO DAILY 01/31/20 07/11/24 History ascorbic acid (vitamin C) 1,000 mg 2 g PO DAILY 09/19/20 07/11/24 History tablet ergocalciferol (vitamin D2) 50 mcg 50 mcg PO WEEKLY 09/19/20 07/11/24 History (2,000 unit) tablet duloxetine 60 mg capsule,delayed 60 mg PO BID #180 caps 08/30/23 07/11/24 Rx release (Cymbalta) metoprolol tartrate 25 mg tablet See Rx Instructions .Route 09/20/23 07/11/24 Rx .COMPLEX #90 tabs meloxicam 7.5 mg tablet 7.5 mg PO DAILY PRN pain #30 tabs 02/28/24 07/11/24 Rx Daily Multivitamin 1 tab-cap PO DAILY 07/03/24 07/11/24 History Patient hx anesthesia problems: none Family hx anesthesia problems: none Results Review: All pre-operative results and documents have been reviewed as part of the pre- operative evaluation. [facility] Past Medical History Medical History Claustrophobia Seronegative rheumatoid arthritis of both hands Depression Osteoporosis Anxiety SVT (supraventricular tachycardia) GERD (gastroesophageal reflux disease) Surgical History Surgical History History of carpal tunnel release S/P cervical spinal fusion H/O foot surgery Family History Family History Mother Family history of thyroid disease Carcinoma of colon Grandparent Family history of psoriasis Family history of malignant neoplasm Family history of congestive heart failure Father Family history of lung cancer Family history of malignant neoplasm Other Family history of cardiovascular disease Hypertension Social History Social History (Updated 07/11/24 @ 13:25 by Presley Hope MD) Smoking packs per day: 0.5 Smoking cigarettes per day: 10.0 Years smoked: 15 Smoking pack-years: 7.50 Smoking status: Former smoker Tobacco type: cigarettes Second hand tobacco smoke exposure: No Smoking end date: 07/26/98 Alcohol intake: never Substance use: never Substance use type: does not use Lack of Transportation: No Lack of Food: Never True Current Housing: I Have Housing Concerned About Future Housing: No Difficulty Paying Gas/Electric Bills: No Difficulty Paying for Meds: No Currently Unemployed: No Education: High School Diploma/GED Difficulty w/ Childcare or Family Care: No Living arrangements: with family Occupation/Education: retired Gender identity (if verbalized by the patient): Female Spiritual care concerns: No Agree to blood products: Yes Anes - Eval Final PreProcedure Day of Procedure 07/11/24 13:25 Patient weight: normal Heart: regular rate and rhythm Lungs: clear to auscultation Airway: Mallampati scale class II and special considerations poor extension Neurological: alert and oriented and parathesia (to Biateral shoulders - recent posterior C2-T1 fusion at U) Last oral intake: >/= 8 hours ASA classification: III Emergent: no Anesthetic plan: proceed Anesthesia type and monitoring: general GIVS and standard monitoring Results Review: All pre-operative results and documents have been reviewed as part of the pre- operative evaluation. Informed Consent: The patient's anesthetic plan and its attendant risks and benefits were discussed with the patient/family/POA. Questions were solicited and answers provided to the satisfaction of the patient/family/POA.
--- NOTE | 2024-07-11 13:57 | PM.IMHP ---
H&P: HPI History of Present Illness Date/Time: 07/11/24 13:57 Chief Complaint: Family history of colorectal cancer Narrative: This patient has family history of colorectal cancer. Her mother had colon cancer at age 60. Review of Systems Review of Systems: All systems reviewed & are unremarkable except as noted in HPI and below PMFSH Past Medical History Medical History Claustrophobia Seronegative rheumatoid arthritis of both hands Depression Osteoporosis Anxiety SVT (supraventricular tachycardia) GERD (gastroesophageal reflux disease) Surgical History Surgical History History of carpal tunnel release S/P cervical spinal fusion H/O foot surgery Family History Family History Mother Family history of thyroid disease Carcinoma of colon Grandparent Family history of psoriasis Family history of malignant neoplasm Family history of congestive heart failure Father Family history of lung cancer Family history of malignant neoplasm Other Family history of cardiovascular disease Hypertension Social History Social History (Updated 07/11/24 @ 13:25 by Presley Hope MD) Smoking packs per day: 0.5 Smoking cigarettes per day: 10.0 Years smoked: 15 Smoking pack-years: 7.50 Smoking status: Former smoker Tobacco type: cigarettes Second hand tobacco smoke exposure: No Smoking end date: 07/26/98 Alcohol intake: never Substance use: never Substance use type: does not use Lack of Transportation: No Lack of Food: Never True Current Housing: I Have Housing Concerned About Future Housing: No Difficulty Paying Gas/Electric Bills: No Difficulty Paying for Meds: No Currently Unemployed: No Education: High School Diploma/GED Difficulty w/ Childcare or Family Care: No Living arrangements: with family Occupation/Education: retired Gender identity (if verbalized by the patient): Female Spiritual care concerns: No Agree to blood products: Yes Meds Home Medications and Allergies Home Medications ?Medication ?Instructions ?Recorded ?Confirmed ?Type aspirin 81 mg chewable tablet 81 mg PO DAILY 12/08/19 07/11/24 History (Sarah Chewable Low Dose Aspirin) Lactobacillus 1 cap PO DAILY 01/31/20 07/11/24 History acidophilus-Bifidobac.animalis 2.5 billion cell capsule (Daily Probiotic) calcium carbonate (Calcium 600) 1 mg PO DAILY 01/31/20 07/11/24 History ascorbic acid (vitamin C) 1,000 mg 2 g PO DAILY 09/19/20 07/11/24 History tablet ergocalciferol (vitamin D2) 50 mcg 50 mcg PO WEEKLY 09/19/20 07/11/24 History (2,000 unit) tablet duloxetine 60 mg capsule,delayed 60 mg PO BID #180 caps 08/30/23 07/11/24 Rx release (Cymbalta) metoprolol tartrate 25 mg tablet See Rx Instructions .Route 09/20/23 07/11/24 Rx .COMPLEX #90 tabs meloxicam 7.5 mg tablet 7.5 mg PO DAILY PRN pain #30 tabs 02/28/24 07/11/24 Rx Daily Multivitamin 1 tab-cap PO DAILY 07/03/24 07/11/24 History Allergies Allergy/AdvReac Type Severity Reaction Status Date / Time venom-wasp Allergy Severe Hives Verified 07/11/24 12:23 Vital Signs Vital Signs - 24 hr 07/11/24 12:26 Temperature 97 F L Pulse Rate 82 Respiratory Rate 18 Blood Pressure 122/76 Pulse Oximetry 100 Oxygen Delivery Room Air Exam Const: General: cooperative and healthy appearing Resp: Effort & Inspection: normal respiratory effort and able to speak in complete sentences Auscultation: clear to auscultation bilaterally Cardio: Rate: regular rate Rhythm: regular rhythm GI: Inspection: normal to inspection GI Palp: No No hepatosplenomegaly present Auscultation: normal bowel sounds Rectal Exam: deferred Skin: General skin exam: normal color Psych: Appearance: grossly normal Mental Status: mental status grossly normal Assessment and Plan Assessment and plan (1) Family history of colon cancer: Code(s): Z80.0 - Family history of malignant neoplasm of digestive organs Status: Acute Assessment and Plan: The patient is deemed a good candidate for the procedure. Consent signed. Will proceed.
[2024-07-11 15:03] VITALS: BP 120/70; PULSE 72; RESP 20; O2SAT 100
[2024-07-11 15:13] VITALS: BP 114/64; PULSE 64; RESP 19; O2SAT 100
[2024-07-11 15:23] VITALS: BP 149/80; PULSE 67; RESP 20; O2SAT 100
== END 2024-07-11 15:37 | disposition home or self-care (01) ==
PROVIDERS: PCP Nurse Practitioner Family; Visit Provider Internal Medicine Gastroenterology
PROC: 0DJD8ZZ Inspection of Lower Intestinal Tract, Via Natural or Artificial Opening Endoscopic (ICD-10-PCS; CPT 45378; principal; 2024-07-11 13:30)
DX: Z12.11 Encounter for screening for malignant neoplasm of colon (principal); D12.4 Benign neoplasm of descending colon; K64.8 Other hemorrhoids; Z80.0 Family history of malignant neoplasm of digestive organs; Z87.891 Personal history of nicotine dependence
CPT/HCPCS: 45385; 88305; J2003; J2704; J7120

== ENCOUNTER 2024-11-28 11:55 | Outpatient (CLI) | payer BC, SELFPAY ==
--- NOTE | ~2024-11-28 | CT_ITS ---
CT of the Abdomen and Pelvis: Indication: Abdominal pain Technique: 2.5 mm axial scans were obtained through the abdomen and pelvis following intravenous adm inistration of 100 cc of Omnipaque 350. Dose reduction technique was used on this scan by utilizing a utomated exposure control and iterative reconstruction technique. The dose-length product (DLP) was 7 14.69 mGy-cm. Findings: Scans through the lung bases are unremarkable. The liver, spleen, pancreas, gallbladder, adrenals and kidneys are within normal limits. No evidence of aortic aneurysm. No lymphadenopathy. Appendix dilated to 10 mm with periappendiceal inflammatory stranding. No abscess or free air. No bow el obstruction. Images through the pelvis were performed. Urinary bladder unremarkable. No pelvic mass seen. No ascit es. Impression: Findings compatible with uncomplicated acute appendicitis, as detailed above. No abscess or free air. Reviewed, dictated and finalized at [facility]. Impression: Findings compatible with uncomplicated acute appendicitis, as detailed above. N o abscess or free air.
--- OUTSIDE RECORDS SUMMARY | 2024-11-28 12:22 | XMS_ITS | Encounter Summary ---
Author Organization [facility] Address [address] [place] [address] Care Team Providers Care Ambulance Attendant Name Role Phone Lauren Quiroz MD Primary Care Provider [phone] Zora Nixon DO Primary Care Provider + Patel Osborne MD Primary Care Provider [phone] Renea Maciel NP Primary Care Provider [phone] Encounter Details Date Type Department Care Team (Late st Contact Info) Description 08/24/2016 Orders Only [facility] ProviderAnusha MD [address] [place] [id number] Social History Tobacco Use Types Packs/Day Years Used Date Smoking Tobacco: Former Alcohol Use Standard Drinks/Week Comments Yes 0 (1 standard drink = 0.6 oz pur e alcohol) Comments Unknown Sex and Gender Information Value Date Recorded Sex Assigned at Not on file 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 Historical Provider [facility] NIRMAL JORDAN Final Result documented in this encounter Visit Diagnoses Not on filedocumented in this encounter Care Teams Ambulance Attendant Relationship Specialty Start Date End Date Lauren Quiroz MD PCP - General 04/29/11 01/18/20 Zora Nixon DO [address] [place] [address] [phone] PCP - General Family Medicine 01/19/20 01/10/23 Patel Osborne MD [address] [place] [address] [phone] PCP - General Family Medicine 01/11/23 08/08/23 Renea Maciel, MAX [address] [place] [address] [phone] PCP - General Family Medicine 08/09/23 documented as of this encounter
--- OUTSIDE RECORDS SUMMARY | 2024-11-28 12:22 | XMS_ITS | Clinical Summary ---
Author Organization [facility] [address] Address [address] [place] [address] Care Team Providers Care Plastic Card Grader Cardroom Name Role Phone Renea Maciel NP Primary Care Provider [phone] Allergies No known active allergies Medications Lactobacillus acidophilus (PROBIOTIC) 10 billion cell capsule take 1 by Oral route once 0 0 5 Active ergocalciferol (VITAMIN D2) 50,000 unit capsule take 1 capsule by ORAL route every week 0 0 5 Active Additional Information Patient taking differently: (No dose reported), oral, Indications: three times monthly, Reported on 10/23/2024 ascorbic acid (vitamin C) 1,000 mg tablet take 1 by Oral route once 0 0 5 Active aspirin (ASPIR-81) 81 mg tablet take 1 tablet by oral route every day 0 0 5 Active calcium carbonate (CALCIUM 500) 1,250 MG (500 mg of elemental calcium) tablet take 1 by Oral route once 0 0 5 Active metoprolol tartrate (LOPRESSOR) 25 mg immediate release tabletIndication s:Paroxysmal atrial fibrillation (HCC),Palpitatio ns Take 0.5 tablets (12.5 mg total) by mouth 2 (two) times a day 30 tablet [address] (CYMBALTA) 30 mg capsule Take 3 capsules (90 mg total) by mouth daily 5 Active magnesium oxide (MAG-OX) 400 mg (241.3 mg elemental magnesium) tabletIndication s:hypomagnesemia Take 1 tablet (400 mg total) by mouth 2 (two) times a day Active Active Problems Problem Noted Date Diagnosed Date Arthritis 06/16/2022 Palpitations 09/16/2021 Atypical chest pain 01/30/2021 History of PSVT (paroxysmal supraventricular tac hycardia) 06/15/2017 Unknown and unspecified causes of morbidity 09/24 Overview (10/30/2016): History of paroxysmal supraventricular tachycardia Atopic rhinitis 10/17/2014 Overview (10/30/2016): Allergic rhinitis Hypokalemia 10/17/2014 Overview (10/30/2016): Hypokalemia Paroxysmal atrial fibrillation 10/17/2014 Overview (10/30/2016): PAF (paroxysmal atrial fibrillation) Vitamin D deficiency 10/17/2014 Overview (10/30/2016): Vitamin D deficiency Resolved Problems Problem Noted Date Diagnosed Date Resolved Date Overweight (BMI 25.0-29.9) 07/24/2020 0 03/06/2024 Encounters Date Type Department Care Team Description 10/23/2024 11:00 AM CDT Office Visit [facility] [address] [place] [address] Vladimir Zavala MD History of PSVT (paroxysmal supraventricular tachycardia) (Primary Dx); Paroxysmal atrial fibrillation (HCC); Palpitations; Vitamin D deficiency; Atypical chest pain; Lipid screening from Last 3 Months Medical History Medical History Date Comments Hx Other Medical SVT, status pos t tonsillectomy, anxiety, depressio; Comments: MAF 10/17/2014 - Family History Medical History Relation Name Comments Lung cancer Father 2 Cancer, lung; C ause of : Cancer, lung Colon cancer Mother Cancer, colon; Relation Name Status Comments Father 1 Father 2 Mother Social History Tobacco Use Types Packs/Day Years Used Date Smoking Tobacco: Former Cigarettes Q uit: 06/15/2001 Smokeless Tobacco: Never Tobacco Cessation:Counseling Given: Not Answered Alcohol Use Standard Drinks/Week Comments No 0 (1 standard drink = 0.6 oz pur e alcohol) Comments Unknown Sex and Gender Information Value Date Recorded Sex Assigned at Not on file 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 Gender Identity Not on file Sexual Orientation Not on file Obstetrics History Last Filed Vital Signs Vital Sign Reading Time Taken Comments Blood Pressure 104/66 10/23/2024 11:04 AM CDT Pulse 70 10/23/2024 11:04 AM CDT Temperature - - Respiratory Rate - - Oxygen Saturation 98% 10/23/2024 11:04 AM CDT Inhaled Oxygen Concentration - - Weight 76.2 kg (168 lb) 10/23/2024 11:04 AM CDT Height 170.2 cm (5' 7 ) 10/23/2024 11:04 AM CDT Body Mass Index 26.31 10/23/2024 11:04 AM CDT Plan of Treatment Health Maintenance Due Date Last Done Comments Breast Cancer Screening-Mammogram 1962 Cervical Cancer Screening 1962 Colon Cancer Screening-Colonoscopy 1962 Depression Screening 1962 Hepatitis C Screening 1962 DTaP/Tdap/Td Vaccine (1 - Tdap) 1973 Hepatitis B Screening 1980 Regular Well Visit/Exam 18-64 1980 Zoster Vaccine (1 of 2) 2012 Influenza Vaccine (#1) 2024 Pneumococcal vaccine <65 Aged Out No longer eligible based on patient's age to complete this topic Procedures Procedure Name Priority Date/Time Associated Diagnosis Comments POCT LIPID PANEL Routine 10/23/2024 11:0 5 AM CDT Lipid screening from Last 3 Months Results * POCT lipid panel (10/23/2024 11:05 AM CDT) Cholesterol, POC 185 mg/dL HDL, POC 54 mg/dL Triglycerides, POC 221 mg/dL LDL Cholesterol POC 87 mg/dL Chol/HDL Ratio, POC 1.6 Non-HDL Cholesterol, POC 131 mg/dL Cholesterol Total, POC 185 mg/dL Capillary blood 10/23/2024 1 1:05 AM CDT us Vladimir Zavala MD POINT OF CARE TEST ORDERA BLES Final Result from Last 3 Months Insurance [place] [employer] [place] Care Teams Plastic Card Grader Cardroom Relationship Specialty Start Date End Date Renea Maciel NP PCP - General Family Medicine 08/09/23
--- OUTSIDE RECORDS SUMMARY | 2024-11-28 12:22 | XMS_ITS | Clinical Summary ---
Author Organization [facility] Address [address] [place] [address] Care Team Providers Care Shirt Closer Name Role Phone Zora Ruano DO Primary Care Provider Howard ilable Allergies No known active allergies Medications Biotin 10 MG Cap Take 1 capsule by mouth daily. Active cannabidiol 100 MG/ML oral solution Take 20 mg/kg by mouth 2 (two) times daily. Active escitalopram 5 MG tablet Take 5 mg by mouth daily. Active meloxicam 7.5 MG tablet Take 7.5 mg by mouth daily. Active pantoprazole EC 40 MG tablet Take 40 mg by mouth daily. Active Aspirin Buf,CaCarb-MgCa rb-MgO, 81 MG Tab Take 81 mg by mouth daily. Active Probiotic Product (PROBIOTIC ADVANCED) Cap Take by mouth daily. Active vitamin D2, ergocalciferol, (VITAMIN D, ERGOCALCIFEROL, ) 56598 UNITS capsule Take 50,000 Units by mouth. 3 times a month Active vitamin C 1000 MG tablet Take 2,000 mg by mouth daily. Active calcium, elemental, 600 MG tablet Take 600 mg by mouth daily. Active nitroglycerin 0.[address] 1 tablet (0.4 mg total) under the tongue every 5 (five) minutes as needed for Chest Pain. Maximum of 3 doses. If taking 3rd dose call 911. 25 tablet 1 04/11/2021 Active Active Problems Problem Noted Date Diagnosed Date Chest pain in adult 03/07/2021 Assessment & Plan (04/11/2021 12:31 PM CDT): I have asked her to try sublingual nitroglycerin in relation to her chest pain with the thought that she may have a component of microvascular disease. If nitroglycerin is helping her chest pain, would recommend starting Imdur 30 mg daily. Assessment & Plan (03/07/2021 9:10 PM CDT): Since she has ongoing symptoms of chest pain in conjunction with an abnormal stress test I recommended that she undergo cardiac catheterization. I have discussed the procedure in detail including radial or femoral access, coronary angiography and possible stent placement. I have discussed the risks and benefits of cardiac catheterization that include but are not limited to: bleeding, infection, cerebrovascular accident (<1%), myocardial infarction (<1%) and (< 1%). PAF (paroxysmal atrial fibrillation) ([facility]) 03/07/2021 Assessment & Plan (04/11/2021 12:30 PM CDT): She is having palpitations intermittently. We will get a 14-day event monitor to determine if she is having runs of atrial fibrillation. Assessment & Plan (03/07/2021 9:10 PM CDT): It sounds like she had a one-time episode of paroxysmal atrial fibrillation and has not had a recurrence. She is currently only on aspirin and is not on any rate or rhythm controlling medication. Her [id number] score is 0. Hyperlipidemia, mixed 03/07/2021 Assessment & Plan (04/11/2021 12:32 PM CDT): She had a repeat lipid panel prior to the cardiac catheterization that showed an LDL of 104. At this time, we can use diet and lifestyle changes to control her lipids. Assessment & Plan (03/07/2021 9:11 PM CDT): Her last lipid panel shows an LDL of 120 mg/dL. If her cardiac catheterization shows coronary artery disease, I recommend statin therapy to get her LDL less than 100. Family History Medical History Relation Comments AAA Maternal Grandmother Relation Status Comments Father Maternal Grandmother Mother Alive Social History Tobacco Use Types Packs/Day Years Used Date Smoking Tobacco: Former Cigarettes Q uit: 05/2000 Smokeless Tobacco: Never Alcohol Use Standard Drinks/Week Comments Never 0 (1 standard drink = 0.6 oz pur e alcohol) Comments No Sex and Gender Information Value Date Recorded Sex Assigned at Not on file Legal Sex Female 7:57 PM CDT Gender Identity Not on file Sexual Orientation Not on file Last Filed Vital Signs Vital Sign Reading Time Taken Comments Blood Pressure 110/64 04/11/2021 12:11 PM CDT Pulse 64 04/11/2021 12:11 PM CDT Temperature - - Respiratory Rate 15 03/25/2021 2:00 PM CDT Oxygen Saturation 97% 03/25/2021 2:00 PM CDT Inhaled Oxygen Concentration - - Weight 85.3 kg (188 lb) 04/11/2021 12:11 PM CDT Height 167.6 cm (5' 6 ) 04/11/2021 12:11 PM CDT Body Mass Index 30.34 04/11/2021 12:11 PM CDT Plan of Treatment Health Maintenance Due Date Last Done Comments Cervical Cancer Screening Pa p Smear (Age 30 to 64) Every 3 Years 1962 Colorectal Cancer Screening Colonoscopy (10 Years) 1962 Annual Physical 1965 Hepatitis C 1980 DTaP, Tdap and Td Vaccines ( 1 - Tdap) 1981 Cervical Cancer Screening Pa p with HPV Testing (Age 30 to 64) Every 5 Years 1992 Cervical Cancer Screening with HPV 1992 Mammogram Screening 2002 Pneumococcal Vaccine: 50+ Ye ars (1 of 1 - PCV) 2012 Zoster Vaccines (1 of 2) 2012 RSV Immunization or 60+ Years (1 - Risk 60-74 years 1-dose series) 2022 COVID-19 Vaccine (1 - 2023-2 5 season) 2024 Meningococcal B Vaccine Aged Out No l onger eligible based on patient's age to complete this topic Meningococcal Vaccine Aged Out No silverio juana eligible based on patient's age to complete this topic RSV Immunizations Under 20 Months Aged Out No longer eligible based on patient's age to complete this topic Insurance [facility] Advance Directives * Full Code (Latest Code Status on File) Date Activated Date Inactivated Comments 03/25/2021 2:05 PM 03/25/2021 4:44 PM Care Teams Shirt Closer Relationship Specialty Start Date End Date Zora Ruano DO PCP - General FAMILY PRACTICE 03/26/21
--- OUTSIDE RECORDS SUMMARY | 2024-11-28 12:22 | XMS_ITS | Referral Summary ---
Author Organization [facility] [address] Address [address] [place] [address] Care Team Providers Care Community Health Navigator Name Role Phone Renea Maciel NP Primary Care Provider [phone] Encounters Date Type Department Care Team Description 10/23/2024 11:00 AM CDT Office Visit [facility] Cardiology [address] [place] [address] Vladimir Zavala MD History of PSVT (paroxysmal supraventricular tachycardia) (Primary Dx); Paroxysmal atrial fibrillation (HCC); Palpitations; Vitamin D deficiency; Atypical chest pain; Lipid screening from Last 3 Months Allergies No known active allergies Medications Lactobacillus [...] Date Overweight (BMI 25.0-29.9) 07/24/2020 0 03/06/2024 Social History Tobacco Use Types Packs/Day Years Used Date Smoking Tobacco: Former Cigarettes Q uit: 06/15/2001 Smokeless Tobacco: Never Tobacco Cessation:Counseling Given: Not Answered Alcohol Use Standard Drinks/Week Comments No 0 (1 standard drink = 0.6 oz pur e alcohol) Comments Unknown Sex and Gender Information Value Date Recorded Sex Assigned at Not on file 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
--- OUTSIDE RECORDS SUMMARY | 2024-11-28 12:22 | XMS_ITS | Clinical Summary ---
Author Organization [facility] [employer] Address [address] [facility] [place] [address] Care Team Providers Care Awning Craftsperson Name Role Phone Good White MD Primary Care Provider [phone] Source Comments [facility] [employer]non-owned Affiliates and Associated Physician Practices is amultiple site organization consisting of ambulatory clinics and hospital sitesin [place], [place], [place] and [place]. This disclosure is being madepursuant to the Care Everywhere program and may not contain all information available regarding this patient. Last updated 18.[facility] [employer] Allergies No known active allergies Medications * Be aware that medications may not be up to date on this document. Alwaysverify current medications with the patient. Multi-Day TABS Take 1 (one) tablet by mouth once daily Active aspirin (ASPIRIN) 81 MG tablet Take 1 (one) tablet by mouth once daily Active Probiotic Product (PROBIOTIC PO) Activ e Ascorbic Acid (VITAMIN C PO) Activ e Calcium Carbonate (CALCIUM 600 PO) Active DULoxetine (Cymbalta) 60 MG capsule Take 1 (one) capsule by mouth once daily 4 Active vitamin D, ergocalciferol, (Drisdol) 1.25 MG (76803 UT) capsule Take 1 (one) capsule by mouth every 7 days Active metoprolol tartrate IR (Lopressor) 25 MG tablet 1 (one) tablet once daily 4 Active terbinafine (LamISIL) 250 MG tablet Take 1 (one) tablet by mouth once daily 4 Active meloxicam (Mobic) 7.5 MG tablet Take 1 (one) tablet by mouth as needed 4 Active oxyCODONE, immediate release, (Roxicodone) 5 MG tabletIndicatio ns:Cervical myelopathy (HCC) Take 1 (one) tablet by mouth every 6 hours as needed for Pain 42 tablet 4 Active Additional Information Patient not taking.Reported on 11/03/2024 cyclobenzaprine (Flexeril) 5 MG tablet Take 1 (one) tablet by mouth 3 times daily as needed 30 tablet 4 Active docusate sodium (Colace) 100 MG capsule Take 1 (one) capsule by mouth once daily 30 capsule 4 Active polyethylene glycol 3350 (Miralax) 17 GM/SCOOP powder Take 17 (seventeen) g by mouth once daily 238 g 4 Active acetaminophen (Tylenol) 500 MG capsule Take 2 (two) capsules by mouth every 8 hours 90 capsule 4 Active Active Problems Problem Noted Date Diagnosed Date S/P cervical spinal fusion 05/16/2024 Cervical myelopathy 04/18/2024 Pain in left foot 05/24/2008 Encounters Date Type Department Care Team Description 11/23/2024 Telephone [facility] - Centralized Scheduling [address] [place] [address] None, Physician Establish Care 11/03/2024 10:30 AM CDT Office Visit [facility] - Orthopedics [address] [place] [address] Javier Rider MD Onychomycosis (Primary Dx) 11/03/2024 10:12 AM CDT - 11/03/2024 11:59 PM CDT Hospital Encounter [facility] DIAGNOSTIC RAD [facility] [address] [place] [id number] Javier Rider MD Discharge Disposition: Home or Self Care 11/03/2024 10:11 AM CDT Hospital Encounter [facility] DIAGNOSTIC RAD [facility] [address] [place] [phone] Javier Rider MD Discharge Disposition: Home or Self Care 11/03/2024 Travel 10/30/2024 Orders Only [facility] - [facility]oped[facility] [address] [facility] [place] [address] Javier Rider MD Bilateral hand pain 10/17/2024 12:12 PM CDT - 10/17/2024 11:59 PM CDT Hospital Encounter [facility] DIAGNOSTIC RAD [facility] [address] [facility] [place] [address] Mark Melo MD Discharge Disposition: Home or Self Care 10/17/2024 12:00 PM CDT Office Visit [facility] [address] [facility] [place] [address] Mark Melo MD S/P cervical spinal fusion (Primary Dx) 10/17/2024 Travel from Last 3 Months Social History Tobacco Use Types Packs/Day Years Used Date Smoking Tobacco: Former Cigarettes 1 25 1 - 05/22/2001 Smokeless Tobacco: Never Tobacco Cessation:Counseling Given: Not Answered Alcohol Use Standard Drinks/Week Comments Not Currently 0 (1 standard drink = 0.6 oz pur e alcohol) AUDIT-C Answer Date Recorded Q1: How often do you have a drink containing alcohol? Never 05/01/2024 Q2: How many drinks containi ng alcohol do you have on a typical day when you are drinking? Patient does not drink Q3: How often do you have si x or more drinks on one occasion? Never 05/01/2024 Overall Financial Resource Strain (CARDIA) Answe r Date Recorded How hard is it for you to pa y for the very basics like food, housing, medical care, and heating? Not hard at all 05/01/2024 PHQ-2 Answer Date Recorded Patient Health Questionnaire-2 Score 3 04/17/2024 [facility] - Occupational Stress Questionnaire Answer Date Recorded Do you feel stress - tense, restless, nervous, or anxious, or unable to sleep at night because your mind is troubled all the time - these days? Not at all 05/01/2024 Hunger Vital Sign Answer Date Recorded Within the past 12 months, y ou worried that your food would run out before you got the money to buy more. Never true 05/01/20 24 Within the past 12 months, t he food you bought just didn't last and you didn't have money to get more. Never true 05/01/2024 PRAPARE - Transportation Answer Date Re corded In the past 12 months, has l ack of transportation kept you from medical appointments or from getting medications? No 01/2024 In the past 12 months, has l ack of transportation kept you from meetings, work, or from getting things needed for daily living? No 05/01/2024 Housing Stability Vital Sign Answer Krishan e Recorded In the last 12 months, was t here a time when you were not able to pay the mortgage or rent on time? No 05/01/2024 In the last 12 months, how many places have you lived? 1 05/01/2024 In the last 12 months, was t here a time when you did not have a steady place to sleep or slept in a fpc (including now)? No 05/01/2024 Comments No Sex and Gender Information Value Date Recorded Sex Assigned at Not on file Legal Sex Female 5:31 AM WEB APPLICATIONS ARCHITECT Gender Identity Not on file Sexual Orientation Not on file Last Filed Vital Signs Vital Sign Reading Time Taken Comments Blood Pressure 110/64 05/05/2024 7:58 AM CDT Pulse 79 05/05/2024 7:58 AM CDT Temperature 37 C (98.6 F) 05/05/2024 7:58 AM CDT Respiratory Rate 14 05/05/2024 7:58 AM CDT Oxygen Saturation 96% 05/05/2024 7:58 AM CDT Inhaled Oxygen Concentration - - Weight 71.2 kg (157 lb) 06/06/2024 8:33 AM WEB APPLICATIONS ARCHITECT Height 160 cm (5' 3 ) 06/06/2024 8:33 AM WEB APPLICATIONS ARCHITECT Body Mass Index 27.81 06/06/2024 8:33 AM WEB APPLICATIONS ARCHITECT Plan of Treatment Upcoming Encounters Date Type Department Care Team (Late st Contact Info) Description 04/24/2025 11:30 AM CDT Office Visit [facility] - [facility]oped[facility] [address] [place] [address], [facility] [place] [address] Mark Melo MD [address] [place] [address] Health Maintenance Due Date Last Done Comments COLOGUARD (AGES 45-75) - COLON CA SCREENING 1962 COLON MONITORING 1962 COLONOSCOPY - COLON CA SCREENING 1962 CT COLONOGRAPHY - COLON CA SCREENING 1962 Colorectal Cancer Screening 1962 FIT - COLON CA SCREENING 1962 FLEX SIG - COLON CA SCREENING 1962 MAMMOGRAM 1962 PAP SMEAR 1962 HIV SCREENING 1977 HEPATITIS C SCREENING 09/04/1980 DTAP/TDAP/TD VACCINES (1 - Tdap) 1981 PNEUMOCOCCAL VACCINE 50+ (1 of 1 - PCV) 2012 ZOSTER VACCINE (1 of 2) 2012 COVID-19 VACCINE (1 - season) 2024 DEPRESSION SCREENING 07/26/2024 02/09/2024 INFLUENZA VACCINE (Season Ended) 2025 SCREENING FOR DIABETES 05/05/2027 , 05/04/2024, 05/03/2024, Additional history exists LIPID TESTING 10/23/2029 10/23/2024, 02/23, 08/09/2023 Respiratory Syncytial Virus (RSV) Vaccine Pt: or over 60 yrs (1 - 1-dose 75+ series) 2037 HEPATITIS B VACCINE Aged Out No longe r eligible based on patient's age to complete this topic HIB VACCINE Aged Out No longer eligi ble based on patient's age to complete this topic HPV VACCINE Aged Out No longer eligi ble based on patient's age to complete this topic MENINGOCOCCAL (Group B) VACCINE SHARED DECISION-MAKING Aged Out No longer eligible based on patient's age to complete this topic MENINGOCOCCAL GROUPS A/C/Y/W VACCINE Aged Out No longer eligible based on patient's age to complete this topic Goals Goal Patient Goal Type Associated Problems Recent Progress Patient-Stated? Author PAIN General No Alaina Cordova, RN Note: Expected end date: 11/23/2024 Patient's pain/discomfort is manageable. Interventions: Use non-pharmacological pain managment interventions Rest Medical Devices Implanted Type Area Lining Cutter Device Identifier Shelf Expiration Date Model / Serial / Lot 3.5mm X 16mm Screw Implanted:Qty: 2 on 05/01/2024 by Mark Melo MD at [facility] N/A: Spine [id number] / / 3.5mm X 14mm Screw Implanted:Qty: 6 on 05/01/2024 by Mark Melo MD at [facility] N/A: Spine [id number] / / 3.5mm X 24mm Screw Implanted:Qty: 2 on 05/01/2024 by Mark Melo MD at [facility] N/A: Spine [id number] / / 4.5mm X 24mm Screw Implanted:Qty: 2 on 05/01/2024 by Mark Melo MD at [facility] N/A: Spine [id number] / / Caps Implanted:Qty: 12 on 05/01/2024 by Mark Melo MD at [facility] N/A: Spine [id number] / / 80mm Layo Implanted:Qty: 2 on 05/01/2024 by Mark Melo MD at [facility] N/A: Spine [id number] / / Gft Bone Pliaflix Prm 30cc Implanted:Qty: 1 on 05/01/2024 by Mark Melo MD at [facility] N/A: Spine [employer] [id number] / / Procedures Procedure Name Priority Date/Time Associated Diagnosis Comments XR HAND RIGHT 3VW OR MORE Routine 11/03/2024 10:25 AM CDT Bilateral hand pain XR HAND LEFT 3VW OR MORE Routine 11/03/2024 10:25 AM CDT Bilateral hand pain XR CERVICAL SPINE 2 OR 3VW Routine 10/17/2024 12:20 PM CDT S/P cervical spinal fusion BASIC METABOLIC PANEL (CALCIUM TOTAL) AM Draw 05/05/2024 1:36 AM CDT from Last 3 Months or Most Recently Relevant to Health Maintenance Results * XR Hand Right 3Vw or More (11/03/2024 10:25 AM CDT) Anatomical Region Laterality Modality Wrist / Hand Radiographic Cris ging 11/03/2024 12:4 9 PM CDT Impressions 11/03/2024 12:54 PM CDT IMPRESSION: 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 This could reflect CPPD arthropathy, hemachromatosis associated arthritis, or osteoarthritis. > Interpreting Provider: Garcia Smith MD on 11/03/2024 12:54 PM Narrative 11/03/2024 12:54 PM CDT PROCEDURE: XR HAND RIGHT 3VW OR MORE, XR HAND LEFT 3VW OR MORE DATE/TIME OF EXAM: 11/03/2024 10:25 AM CLINICAL INFORMATION: None relevant/not provided if blank. Indication: M79.641: Bilateral hand pain M79.642: Bilateral hand pain Additional History: COMPARISON: None. FINDINGS: Right: There is no fracture or dislocation. There is arthritis of the third metacarpophalangeal joint with at least moderate joint space narrowing and subluxation. There are multiple subchondral cysts and there is a metacarpal head hooklike osteophyte. There is more mild arthritis at the second and fourth metacarpophalangeal joints. There is moderate arthritis at the fourth digit distal interphalangeal joint with asymmetric joint space narrowing, subluxation, and radial deviation. There is more mild involvement of the third and fifth digit distal interphalangeal joints. The bones are mildly osteopenic. Left hand: No fracture or dislocation is seen. There is arthritis at the second third metacarpophalangeal joints with moderate joint space narrowing, subchondral sclerosis, and small hooklike osteophytes, and subluxation. There is mild to moderate osteoarthritis at the first digit interphalangeal and second and third digit distal interphalangeal joints and first carpometacarpal joint. The bones are mildly osteopenic. Procedure Note Garcia Smith MD - 11/03/2024 PROCEDURE: XR HAND RIGHT 3VW OR MORE, XR HAND LEFT 3VW OR MORE DATE/TIME OF EXAM: 11/03/2024 10:25 AM CLINICAL INFORMATION: None relevant/not provided if blank. Indication: M79.641: Bilateral hand pain M79.642: Bilateral hand pain Additional History: COMPARISON: None. FINDINGS: Right: There is no fracture or dislocation. There is arthritis of the third metacarpophalangeal joint with at least moderate joint space narrowingand subluxation. There are multiple subchondral cysts and there is ametacarpal head hooklike osteophyte. There is more mild arthritis at the second and fourth metacarpophalangeal joints. There is moderate arthritis at the fourth digit distal interphalangeal joint with asymmetric joint space narrowing, subluxation, and radial deviation. There is more mild involvement of the third and fifth digit distal interphalangeal joints.The bones are mildly osteopenic. Left hand: No fracture or dislocation is seen. There is arthritis at the secondthird metacarpophalangeal joints with moderate joint space narrowing,subchondral sclerosis, and small hooklike osteophytes, and subluxation. There ismild to moderate osteoarthritis at the first digit interphalangeal and second and third digit distal interphalangeal joints and first carpometacarpal joint. The bones are mildly osteopenic. IMPRESSION: Generally moderate polyarticular arthritis with involvementof several metacarpal phalangeal joints bilaterally with hooklikemetacarpal head osteophytes. This could reflect CPPD arthropathy, hemachromatosis associated arthritis, or osteoarthritis. 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 This could reflect CPPD arthropathy, hemachromatosis associated arthritis, or osteoarthritis. > Interpreting Provider: Garcia Smith MD on 11/03/2024 12:54 PM Narrative 11/03/2024 12:54 PM CDT PROCEDURE: XR HAND RIGHT 3VW OR MORE, XR HAND LEFT 3VW OR MORE DATE/TIME OF EXAM: 11/03/2024 10:25 AM CLINICAL INFORMATION: None relevant/not provided if blank. Indication: M79.641: Bilateral hand pain M79.642: Bilateral hand pain Additional History: COMPARISON: None. FINDINGS: Right: There is no fracture or dislocation. There is arthritis of the third metacarpophalangeal joint with at least moderate joint space narrowing and subluxation. There are multiple subchondral cysts and there is a metacarpal head hooklike osteophyte. There is more mild arthritis at the second and fourth metacarpophalangeal joints. There is moderate arthritis at the fourth digit distal interphalangeal joint with asymmetric joint space narrowing, subluxation, and radial deviation. There is more mild involvement of the third and fifth digit distal interphalangeal joints. The bones are mildly osteopenic. Left hand: No fracture or dislocation is seen. There is arthritis at the second third metacarpophalangeal joints with moderate joint space narrowing, subchondral sclerosis, and small hooklike osteophytes, and subluxation. There is mild to moderate osteoarthritis at the first digit interphalangeal and second and third digit distal interphalangeal joints and first carpometacarpal joint. The bones are mildly osteopenic. Procedure Note Garcia Smith MD - 11/03/2024 PROCEDURE: XR HAND RIGHT 3VW OR MORE, XR HAND LEFT 3VW OR MORE DATE/TIME OF EXAM: 11/03/2024 10:25 AM CLINICAL INFORMATION: None relevant/not provided if blank. Indication: M79.641: Bilateral hand pain M79.642: Bilateral hand pain Additional History: COMPARISON: None. FINDINGS: Right: There is no fracture or dislocation. There is arthritis of the third metacarpophalangeal joint with at least moderate joint space narrowingand subluxation. There are multiple subchondral cysts and there is ametacarpal head hooklike osteophyte. There is more mild arthritis at the second and fourth metacarpophalangeal joints. There is moderate arthritis at the fourth digit distal interphalangeal joint with asymmetric joint space narrowing, subluxation, and radial deviation. There is more mild involvement of the third and fifth digit distal interphalangeal joints.The bones are mildly osteopenic. Left hand: No fracture or dislocation is seen. There is arthritis at the secondthird metacarpophalangeal joints with moderate joint space narrowing,subchondral sclerosis, and small hooklike osteophytes, and subluxation. There ismild to moderate osteoarthritis at the first digit interphalangeal and second and third digit distal interphalangeal joints and first carpometacarpal joint. The bones are mildly osteopenic. IMPRESSION: Generally moderate polyarticular arthritis with involvementof several metacarpal phalangeal joints bilaterally with hooklikemetacarpal head osteophytes. This could reflect CPPD arthropathy, hemachromatosis associated arthritis, or osteoarthritis. > Interpreting Provider: Garcia Smith MD on 11/03/2024 12:54 PM Javier Rider MD DIAGNOSTIC IMAGING ORDERABLES F inal Result * XR Cervical Spine 2 or 3Vw (10/17/2024 12:20 PM CDT) Anatomical Region Laterality Modality Spine Radiographic Cris ging 10/17/2024 12:4 4 PM CDT Impressions 10/17/2024 12:46 PM CDT IMPRESSION: Instrumented cervicothoracic spinal fusion, unchanged in alignment. > Interpreting Provider: Garcia Smith MD on 10/17/2024 12:46 PM Narrative 10/17/2024 12:46 PM CDT PROCEDURE: XR CERVICAL SPINE 2 OR 3VW DATE/TIME OF EXAM: 10/17/2024 12:29 PM CLINICAL INFORMATION: None relevant/not provided if blank. Indication: Z98.1: S/P cervical spinal fusion Additional History: COMPARISON: 07/25/2024. FINDINGS: Again demonstrated are postsurgical changes of spinal fusion including posterior rods and screws from C2 to T1 an anterior plate and screws and interbody fusion devices at C4-C6. The screws associated with the anterior plate at C4 are broken, unchanged. Otherwise the instrumentation is intact. The alignment is unchanged. There are degenerative changes. Procedure Note Garcia Smith MD - 10/17/2024 PROCEDURE: XR CERVICAL SPINE 2 OR 3VW DATE/TIME OF EXAM: 10/17/2024 12:29 PM CLINICAL INFORMATION: None relevant/not provided if blank. Indication: Z98.1: S/P cervical spinal fusion Additional History: COMPARISON: 07/25/2024. FINDINGS: Again demonstrated are postsurgical changes of spinal fusion including posterior rods and screws from C2 to T1 an anterior plate and screws and interbody fusion devices at C4-C6. The screws associated with theanterior plate at C4 are broken, unchanged. Otherwise the instrumentation isintact. The alignment is unchanged. There are degenerative changes. IMPRESSION: Instrumented cervicothoracic spinal fusion, unchanged in alignment. > Interpreting Provider: Garcia Smith MD on 10/17/2024 12:46 PM Mark Melo MD DIAGNOSTIC IMAGING ORDERABLES Fi nal Result * BASIC METABOLIC PANEL (CALCIUM TOTAL) (05/05/2024 1:36 AM CDT) BUN 12 7 - 26 mg/dL 05/05/2024 2:33 AM [facility] Creatinine 0.56 0.56 - 0.96 mg/dL 05/05/2024 2:33 AM [facility] Sodium 138 136 - 145 mmol/L 05/05/2024 2:33 AM [facility] Potassium 3.5 3.5 - 4.5 mmol/L 05/05/2024 2:33 AM [facility] Chloride 101 98 - 107 mmol/L 05/05/2024 2:33 AM [facility] CO2 28 22 - 29 mmol/L 05/05/2024 2:33 AM [facility] Glucose 111 70 - 115 mg/dL 05/05/2024 2:33 AM [facility] Calcium 8.9 8.4 - 10.2 mg/dL 05/05/2024 2:33 AM [facility] Anion Gap 9 6 - 16 05/05/2024 2:33 AM [facility] BUN/Creatinine Ratio 21 7 - 23 05/05/2024 2:33 AM [facility] Osmolality Calculated 286 275 - 295 mOsm/kg 05/05/2024 2:33 AM CDT [facility] eGFR by CKD-EPI >90 >=90 mL/min/1.7 3 m2 05/05/2024 2:33 AM CDT [facility] Blood BLOOD SPECIMEN / Unknown Lab Venipuncture / Unknown 05/05/2024 1:36 AM CDT 05/05/2024 2:09 AM CDT Mark Melo MD LAB - CHEMISTRY ORDERABLES Final Result [facility] [address] [place] [address], [facility] [phone] from Last 3 Months or Most Recently Relevant to Health Maintenance Insurance [employer] [facility] Advance Directives * Full Code (Latest Code Status on File) Date Activated Date Inactivated Comments 05/01/2024 12:04 PM 05/05/2024 12:42 PM Care Teams Awning Craftsperson Relationship Specialty Start Date End Date Good White MD [address] [place] [phone] PCP - General Family Medicine 03/10/24
--- OUTSIDE RECORDS SUMMARY | 2024-11-28 12:22 | XMS_ITS | Encounter Summary ---
Author Organization [facility] Address [address] [place] [address] Care Team Providers Care Litharge Supervisor Name Role Phone None, Provider Primary Care Provider Zora Leone DO Primary Care Provider Howard anderson Encounter Details Date Type Department Care Team (Late st Contact Info) Description 03/24/2021 Hospital Orders Only [facility] [place], [place] [phone] Braulio Hickman MD [address] [place], [place] [id number] Social History Tobacco Use Types Packs/Day Years [...] on file Sexual Orientation Not on file COVID-19 Exposure Response Date Recorded In the last month, have you been in contact with someone who was confirmed or suspected to have Coronavirus / COVID-19? No / Unsure 03/25/2021 8:52 AM CDT documented as of this encounter Functional Status * Calculated C-SSRS Risk Score (Lifetime/Recent) Answer Date of Assessment Author Status No Risk Indicated 03/25/2021 9:31 AM CDT Jessica Cardenas RN Active * [place] Suicide Severity Rating Scale (Screener/Recent Self-Report) Question Answer Date of Assessment Author Status 1. Wish to be (Past 1 Month) No 03/25/2021 9:31 AM Jessica Patel RN Active 2. Non-Specific Active Suicidal Thoughts (Past 1 Month) No 03/25/2021 9:31 AM Jessica Patel RN Active 6. Suicidal Behavior (Lifetime) No 03/25/2021 9:31 AM Jessica Patel RN Active documented as of this encounter Plan of Treatment Not on file documented as of this encounter Visit Diagnoses Not on filedocumented in this encounter Care Teams Litharge Supervisor Relationship Specialty Start Date End Date None, Provider, PCP - General 02/21/21 03/25/21 Zora Ruano DO PCP - General FAMILY PRACTICE 03/26/21 documented as of this encounter
--- OUTSIDE RECORDS SUMMARY | 2024-11-28 12:22 | XMS_ITS | Encounter Summary ---
Author Organization [facility] Address [facility] [place] [address] Care Team Providers Care Master Sonar Technician Name Role Phone None, Provider Primary Care Provider Zora Leone DO Primary Care Provider Howard anderson Encounter Details Date Type Department Care Team (Late st Contact Info) Description 03/13/2021 Abstract [facility] [address] John Guevara MA Social History Tobacco Use Types Packs/Day Years [...] or suspected to have Coronavirus / COVID-19? Unable to assess 03/07/2021 3:17 PM CDT documented as of this encounter Plan of Treatment Not on file documented as of this encounter Procedures Procedure Name Priority Date/Time Associated Diagnosis Comments BUN (OUTSIDE LAB) Routine 03/28/2021 HEMATOCRIT Routine 03/28/2021 CREATININE Routine 03/28/2021 PROTIME (OUTSIDE LAB) Routine 03/17/2021 CBC (OUTSIDE LAB) Routine 03/17/2021 BASIC METABOLIC PANEL Routine 03/17/2021 LIPID PANEL Routine 03/17/2021 LIPID PANEL Routine 01/30/2021 documented in this encounter Results * HEMATOCRIT (03/28/2021) Pathologist [facility] HCT 40.8 03/28/2021 us Doc [facility] Abstract LABORATORY Final Result * (ABNORMAL) CREATININE (03/28/2021) [facility] CREATININE S/P/B 0.68 0.5 - 1.0 EGFR NON-AFR. AMER. 112(A) <=90 EGFR AFR. AMER. 96(A) <=90 03/28/2021 us Doc [facility] Abstract LABORATORY Final Result * BUN (OUTSIDE LAB) (03/28/2021) [facility] BUN 18 03/28/2021 us Doc [facility] Abstract LAB-OUTSIDE/ABSTRACTED Final Result * PROTIME (OUTSIDE LAB) (03/17/2021) [facility] PROTIME 10.3 INR 1.0 03/17/2021 us Doc [facility] Abstract LAB-OUTSIDE/ABSTRACTED Final Result * CBC (OUTSIDE LAB) (03/17/2021) [facility] WBC 4.4 HGB 14.4 HCT 43.0 PLT 169 03/17/2021 us Doc [facility] Abstract LAB-OUTSIDE/ABSTRACTED Final Result * (ABNORMAL) BASIC METABOLIC PANEL (03/17/2021) SODIUM S/P/B 143 POTASSIUM S/P/B 4.4 CO2 31 CHLORIDE S/P/B 105 GLUCOSE 89 mg/dL CALCIUM S/P/B 9.6 BUN 17 CREATININE S/P/B 0.70 0.5 - 1.0 EGFR AFR. AMER. 111(A) <=90 EGFR NON-AFR. AMER. 96(A) <=90 03/17/2021 us Doc [facility] Abstract LABORATORY Final Result * LIPID PANEL (03/17/2021) CHOLESTEROL 182 HDL 61 TRIGLYCERIDES 77 NON HDL CHOLESTEROL 121 LDL (CALCULATED) 104 03/17/2021 us Doc [facility] Abstract LABORATORY Edited Resul t - Final * LIPID PANEL (01/30/2021) CHOLESTEROL 206 HDL 63 TRIGLYCERIDES 129 NON HDL CHOLESTEROL 143 LDL (CALCULATED) 129 01/30/2021 us Doc [facility] Abstract LABORATORY Final Result documented in this encounter Visit Diagnoses Not on filedocumented in this encounter Care Teams Master Sonar Technician Relationship Specialty Start Date End Date None, Provider, PCP - General 02/21/21 03/25/21 Zora Ruano DO PCP - General FAMILY PRACTICE 03/26/21 documented as of this encounter
[2024-11-28 12:43] LABS: Estimated Glomerular Filt Rate > 60
[2024-11-28 13:06] LABS: Alanine Aminotransferase 16 U/L (6-35); Albumin Level 4.2 g/dL (3.5-5.1); Alkaline Phosphatase 70 U/L (38-126); Amylase 59 U/L (30-110); Anion Gap 8 mmol/L (4-12); Aspartate Amino Transferase 19 U/L (14-36); Bilirubin,Total 0.6 mg/dL (0.2-1.3); Blood Urea Nitrogen 15 mg/dL (7-17); Calcium 9.5 mg/dL (8.4-10.2); Carbon Dioxide 33 mmol/L (22-30); Chloride 98 mmol/L (98-107); Estimated Glomerular Filt Rate > 60; Glucose 98 mg/dL (65-110); Lipase 55 U/L (23-300); Potassium 3.6 mmol/L (3.4-5.0); Sodium 139 mmol/L (137-145)
== END 2024-11-28 11:56 | disposition home or self-care (01) ==
PROVIDERS: PCP Nurse Practitioner Family; Visit Provider Nurse Practitioner Family
DX: R10.9 Unspecified abdominal pain (principal)
CPT/HCPCS: 36415; 74177; 80053; 82150; 83690; Q9967

== ENCOUNTER 2024-11-28 14:02 | Observation (INO) | payer BC, SELFPAY ==
--- OUTSIDE RECORDS SUMMARY | 2024-11-28 14:06 | XMS_ITS | Clinical Summary ---
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
--- OUTSIDE RECORDS SUMMARY | 2024-11-28 14:06 | XMS_ITS | Clinical Summary ---
Author Organization [facility] Address [address] [place] [address] Care Team Providers Care Foundry Worker Apprentice Name Role Phone Zora Ruano DO Primary [...] vitamin D2, ergocalciferol, (VITAMIN D, ERGOCALCIFEROL, ) 93964 UNITS capsule Take 50,000 Units by mouth. [...] and (< 1%). PAF (paroxysmal atrial fibrillation) ([facility] S/[facility]) 03/07/2021 Assessment & Plan (04/11/2021 [...] any rate or rhythm controlling medication. Her [id number] score is 0. Hyperlipidemia, mixed 03/07/2021 Assessment [...] patient's age to complete this topic Insurance [facility] Advance Directives * Full Code (Latest Code Status on File) Date Activated Date Inactivated Comments 03/25/2021 2:05 PM 03/25/2021 4:44 PM Care Teams Foundry Worker Apprentice Relationship Specialty Start Date End Date Zora Ruano DO PCP - General FAMILY PRACTICE 03/26/21
--- OUTSIDE RECORDS SUMMARY | 2024-11-28 14:06 | XMS_ITS | Encounter Summary ---
Author Organization [facility] Address [address] [place] [address] Care Team Providers Care Sane Nurse Name Role Phone None, Provider Primary Care Provider Zora Leone DO Primary Care Provider Howard anderson Encounter Details Date Type Department Care Team (Late st Contact Info) Description 03/24/2021 Hospital Orders Only [facility] [place] [place] [id number] Braulio Hickman MD [address] [place], [place] [id number] Social History Tobacco Use Types Packs/Day Years [...] AM CDT Jessica Cardenas RN Active * [place] Suicide Severity Rating Scale (Screener/Recent Self-Report) Question [...] on filedocumented in this encounter Care Teams Sane Nurse Relationship Specialty Start Date End Date None, Provider, PCP - General 02/21/21 03/25/21 Zora Ruano DO PCP - General FAMILY PRACTICE 03/26/21 documented as of this encounter
--- OUTSIDE RECORDS SUMMARY | 2024-11-28 14:06 | XMS_ITS | Encounter Summary ---
Author Organization [facility] Address [address] [place] [address] Care Team Providers Care Pasting Inspector Name Role Phone Lauren Quiroz MD Primary Care Provider [phone] Zora Nixon DO Primary Care Provider + Patel Osborne MD Primary Care Provider [phone] Renea Maciel NP Primary Care Provider [phone] Encounter Details Date Type Department Care Team (Late st Contact Info) Description 08/24/2016 Orders Only [facility] ProviderAnusha MD [address] [place] [address] Social History Tobacco Use Types Packs/Day Years Used Date Smoking Tobacco: Former Alcohol Use Standard Drinks/Week Comments Yes 0 (1 standard drink = 0.6 oz pur e alcohol) Comments Unknown Sex and Gender Information Value Date Recorded Sex Assigned at Not on file 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
--- OUTSIDE RECORDS SUMMARY | 2024-11-28 14:06 | XMS_ITS | Clinical Summary ---
Author Organization [facility] Address [address] [place] [address] Care Team Providers Care Physical Chemist Name Role Phone Good White MD Primary Care Provider [phone] Source Comments [facility] [employer],non-owned Affiliates and Associated Physician Practices is amultiple site organization consisting of ambulatory clinics and hospital sitesin [place], [place], [place] and [place]. This disclosure is being madepursuant to the Care Everywhere program and may not contain all information available regarding this patient. Last updated 18.[facility] Allergies No known active allergies Medications * [...] Active vitamin D, ergocalciferol, (Drisdol) 1.25 MG (96116 UT) capsule Take 1 (one) capsule by [...] [facility] Sched[facility] [address] [place] [address] None, Physician Establish Care 11/03/2024 10:30 AM CDT Office Visit [facility] [address] [place] [address] Javier Rider MD Onychomycosis (Primary Dx) 11/03/2024 10:12 AM CDT - 11/03/2024 11:59 PM CDT Hospital Encounter [facility] RAD [facility] [address] [place] [phone] Javier Rider MD Discharge Disposition: Home or Self Care 11/03/2024 10:11 AM CDT Hospital Encounter [facility] [address] [place] [phone] Javier Rider MD Discharge Disposition: Home or Self Care 11/03/2024 Travel 10/30/2024 Orders Only [facility] [address] [facility] [place] [address] Javier Rider MD Bilateral hand pain 10/17/2024 12:12 PM CDT - 10/17/2024 11:59 PM CDT Hospital Encounter [facility] [address] [facility] [address] Mark Melo MD Discharge Disposition: Home or Self Care 10/17/2024 12:00 PM CDT Office Visit [facility] [address] [facility] [place] [address] Mark Melo MD S/P cervical spinal fusion [...] Recorded Patient Health Questionnaire-2 Score 3 04/17/2024 [facility] [place] of Occupat ional Health - Occupational Stress [...] place to sleep or slept in a residential (including now)? 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 Gender Identity Not on file Sexual Orientation [...] 71.2 kg (157 lb) 06/06/2024 8:33 AM STRETCHING PRESS OPERATOR Height 160 cm (5' 3 ) 06/06/2024 8:33 AM STRETCHING PRESS OPERATOR Body Mass Index 27.81 06/06/2024 8:33 AM STRETCHING PRESS OPERATOR Plan of Treatment Upcoming Encounters Date Type Department Care Team (Late st Contact Info) Description 04/24/2025 11:30 AM CDT Office Visit [facility] [address] [place] [address], [facility] [place] [address] Mark Melo MD [address] [place] [phone] Health Maintenance Due Date Last Done Comments [...] interventions Rest Medical Devices Implanted Type Area Computer Numerical Control Operator Device Identifier Shelf Expiration Date Model / Serial / Lot 3.5mm X 16mm Screw Implanted:Qty: 2 on 05/01/2024 by Mark Melo MD at [facility] N/A: Spine [id number] / / 3.5mm X 14mm Screw Implanted:Qty: 6 on 05/01/2024 by Mark Melo MD at [facility] N/A: Spine [id number] / / 3.5mm X 24mm Screw Implanted:Qty: 2 on 05/01/2024 by Mark Melo MD at [facility] N/A: Spine [id number] / / 4.5mm X 24mm Screw Implanted:Qty: 2 on 05/01/2024 by Mark Melo MD at [facility] N/A: Spine [id number] / / Caps Implanted:Qty: 12 on 05/01/2024 by Mark Melo MD at [facility] N/A: Spine [id number] / / 80mm Layo Implanted:Qty: 2 on 05/01/2024 by Mark Melo MD at [facility] N/A: Spine [id number] / / Gft Bone Pliaflix Prm 30cc Implanted:Qty: 1 on 05/01/2024 by Mark Melo MD at [facility] N/A: Spine Lif[employer]et BL-2100-30 / / [...] 7 - 26 mg/dL 05/05/2024 2:33 AM [facility] Creatinine 0.56 0.56 - 0.96 mg/dL 05/05/2024 2:33 AM [facility] Sodium 138 136 - 145 mmol/L 05/05/2024 2:33 AM [facility] Potassium 3.5 3.5 - 4.5 mmol/L 05/05/2024 2:33 AM [facility] Chloride 101 98 - 107 mmol/L 05/05/2024 2:33 AM [facility] CO2 28 22 - 29 mmol/L 05/05/2024 2:33 AM [facility] Glucose 111 70 - 115 mg/dL 05/05/2024 2:33 AM [facility] Calcium 8.9 8.4 - 10.2 mg/dL 05/05/2024 2:33 AM [facility] Anion Gap 9 6 - 16 05/05/2024 2:33 AM [facility] BUN/Creatinine Ratio 21 7 - 23 05/05/2024 2:33 AM [facility] Osmolality Calculated 286 275 - 295 mOsm/kg 05/05/2024 2:33 AM CDT [facility] eGFR by CKD-EPI >90 >=90 mL/min/1.7 3 m2 05/05/2024 2:33 AM CDT [facility] Blood BLOOD SPECIMEN / Unknown Lab Venipuncture / Unknown 05/05/2024 1:36 AM CDT 05/05/2024 2:09 AM CDT Mark Melo MD LAB - CHEMISTRY ORDERABLES Final Result [facility] [address] [place] [address], [facility] [phone] from Last 3 Months or Most Recently Relevant to Health Maintenance Insurance [employer] [facility] Advance Directives * Full Code (Latest Code Status on File) Date Activated Date Inactivated Comments 05/01/2024 12:04 PM 05/05/2024 12:42 PM Care Teams Physical Chemist Relationship Specialty Start Date End Date Good White MD [address] [place] [phone] PCP - General Family Medicine 03/10/24
--- OUTSIDE RECORDS SUMMARY | 2024-11-28 14:06 | XMS_ITS | Encounter Summary ---
Author Organization [facility] Address [facility] [place] [address] Care Team Providers Care Investigator Fraud Name Role Phone None, Provider Primary Care Provider Zora Leone DO Primary Care Provider Howard anderson Encounter Details Date Type Department Care Team (Late st Contact Info) Description 03/13/2021 Abstract [facility] [address] John Guevara MA Social History Tobacco Use [...] this encounter Results * HEMATOCRIT (03/28/2021) Pathologist [facility] HCT 40.8 03/28/2021 us Doc [facility] Abstract LABORATORY Final Result * (ABNORMAL) CREATININE (03/28/2021) [facility] CREATININE S/P/B 0.68 0.5 - 1.0 EGFR NON-AFR. AMER. 112(A) <=90 EGFR AFR. AMER. 96(A) <=90 03/28/2021 us Doc [facility] Abstract LABORATORY Final Result * BUN (OUTSIDE LAB) (03/28/2021) [facility] BUN 18 03/28/2021 us Doc [facility] Abstract LAB-OUTSIDE/ABSTRACTED Final Result * PROTIME (OUTSIDE LAB) (03/17/2021) [facility] PROTIME 10.3 INR 1.0 03/17/2021 us Doc [facility] Abstract LAB-OUTSIDE/ABSTRACTED Final Result * CBC (OUTSIDE LAB) (03/17/2021) [facility] WBC 4.4 HGB 14.4 HCT 43.0 PLT [...] on filedocumented in this encounter Care Teams Investigator Fraud Relationship Specialty Start Date End Date None, Provider, PCP - General 02/21/21 03/25/21 Zora Ruano DO PCP - General FAMILY PRACTICE 03/26/21 documented as of this encounter
--- OUTSIDE RECORDS SUMMARY | 2024-11-28 14:06 | XMS_ITS | Referral Summary ---
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
[2024-11-28 14:12] VITALS: BP 119/81; PULSE 86; RESP 16; TEMP 36.4; O2SAT 100
[2024-11-28 14:46] LABS: Basophils Percent Auto 0.9 % (0.2-1.2); Eosinophils Absolute Auto 0.2 K/mm3 (0-0.3); Eosinophils Percent Auto 4.1 % (0-4.4); Hemoglobin 13.2 g/dL (12.0-15.0); Immature Granulocyte Absolute 0.02 K/mm3 (0.00-0.031); Immature Granulocyte Percent A 0.4 % (0-0.5); Lymphocytes Absolute Auto 1.38 K/mm3 (0.9-3.2); Mean Corpuscular Hemoglobin 31.2 pg (26-34); Mean Corpuscular Volume 94.6 fl (80-100); Mean Platelet Volume 10.9 fl (7.4-10.4); Monocytes Absolute Auto 0.7 K/mm3 (0.1-0.6); Monocytes Percent Auto 14.3 % (2.6-8.5); Neutrophils Absolute Auto 2.3 K/mm3 (1.3-6.7); Neutrophils Percent Auto 50.3 % (45.5-73.1); Platelet Count Result 186 k/mm3 (150-375); Red Blood Count 4.23 M/mm3 (4.2-5.4); Red Cell Distribution Width 12.3 % (11.5-14.5); White Blood Count 4.6 K/mm3 (4.5-10.0)
--- OUTSIDE RECORDS SUMMARY | 2024-11-28 15:09 | XMS_ITS | Encounter Summary ---
Author Organization [facility] Address [facility] [place] [address] Care Team Providers Care Sales Enablement Analyst Name Role Phone None, Provider Primary Care Provider Zora Leone DO Primary Care Provider Howard anderson Encounter Details Date Type Department Care Team (Late st Contact Info) Description 03/13/2021 Abstract [facility] [address] John Guevara MA Social History Tobacco Use [...] this encounter Results * HEMATOCRIT (03/28/2021) Pathologist [facility] HCT 40.8 03/28/2021 us Doc [facility] Abstract LABORATORY Final Result * (ABNORMAL) CREATININE (03/28/2021) [facility] CREATININE S/P/B 0.68 0.5 - 1.0 EGFR NON-AFR. AMER. 112(A) <=90 EGFR AFR. AMER. 96(A) <=90 03/28/2021 us Doc [facility] Abstract LABORATORY Final Result * BUN (OUTSIDE LAB) (03/28/2021) [facility] BUN 18 03/28/2021 us Doc [facility] Abstract LAB-OUTSIDE/ABSTRACTED Final Result * PROTIME (OUTSIDE LAB) (03/17/2021) [facility] PROTIME 10.3 INR 1.0 03/17/2021 us Doc [facility] Abstract LAB-OUTSIDE/ABSTRACTED Final Result * CBC (OUTSIDE LAB) (03/17/2021) [facility] WBC 4.4 HGB 14.4 HCT 43.0 PLT [...] on filedocumented in this encounter Care Teams Sales Enablement Analyst Relationship Specialty Start Date End Date None, Provider, PCP - General 02/21/21 03/25/21 Zora Ruano DO PCP - General FAMILY PRACTICE 03/26/21 documented as of this encounter
--- OUTSIDE RECORDS SUMMARY | 2024-11-28 15:09 | XMS_ITS | Clinical Summary ---
Author Organization [facility] [employer] Address [address] [facility] [place] [address] Care Team Providers Care Brake Repairer Railroad Name Role Phone Good White MD Primary Care Provider [phone] Source Comments [facility] [employer],non-owned Affiliates and Associated Physician Practices is amultiple site organization consisting of ambulatory clinics and hospital sitesin [place], [place], [place] and [place]. This disclosure is being madepursuant to the Care Everywhere program and may not contain all information available regarding this patient. Last updated 18.[facility] [employer] Allergies No known active allergies Medications * [...] Active vitamin D, ergocalciferol, (Drisdol) 1.25 MG (64662 UT) capsule Take 1 (one) capsule by [...] [facility] [address] [place] [address] None, Physician Establish Care 11/03/2024 10:30 AM CDT Office Visit [facility] [address] [place] [address] Javier Rider MD Onychomycosis (Primary Dx) 11/03/2024 10:12 AM CDT - 11/03/2024 11:59 PM CDT Hospital Encounter [facility] [address] [place] [phone] Javier Rider MD Discharge Disposition: Home or Self Care 11/03/2024 10:11 AM CDT Hospital Encounter [facility] [address] [place] [phone] Javier Rider MD Discharge Disposition: Home or Self Care 11/03/2024 Travel 10/30/2024 Orders Only [facility] [address] [facility] [place] [address] Javier Rider MD Bilateral hand pain 10/17/2024 12:12 PM CDT - 10/17/2024 11:59 PM CDT Hospital Encounter [facility] [address] [facility] [address] Mark Melo MD Discharge Disposition: Home or Self Care 10/17/2024 12:00 PM CDT Office Visit [facility] [address] [facility] [place] [address] Mark Melo MD S/P cervical spinal fusion [...] Recorded Patient Health Questionnaire-2 Score 3 04/17/2024 [facility] [place] of Occupat ional Health - Occupational Stress [...] place to sleep or slept in a jail (including now)? No 05/01/2024 Comments No Sex and Gender Information Value Date Recorded Sex Assigned at Not on file Legal Sex Female 5:31 AM PRODUCTION INTERNSHIP Gender Identity Not on file Sexual Orientation [...] 71.2 kg (157 lb) 06/06/2024 8:33 AM PRODUCTION INTERNSHIP Height 160 cm (5' 3 ) 06/06/2024 8:33 AM PRODUCTION INTERNSHIP Body Mass Index 27.81 06/06/2024 8:33 AM PRODUCTION INTERNSHIP Plan of Treatment Upcoming Encounters Date Type Department Care Team (Late st Contact Info) Description 04/24/2025 11:30 AM CDT Office Visit [facility] [address] [place] [address], [facility] [place] [address] Mark Melo MD [address] [place] [phone] Health Maintenance Due Date Last Done Comments [...] interventions Rest Medical Devices Implanted Type Area Die Attacher Device Identifier Shelf Expiration Date Model / Serial / Lot 3.5mm X 16mm Screw Implanted:Qty: 2 on 05/01/2024 by Mark Melo MD at [facility] N/A: Spine [id number] / / 3.5mm X 14mm Screw Implanted:Qty: 6 on 05/01/2024 by Mark Melo MD at [facility] N/A: Spine [id number] / / 3.5mm X 24mm Screw Implanted:Qty: 2 on 05/01/2024 by Mark Melo MD at [facility] N/A: Spine [id number] / / 4.5mm X 24mm Screw Implanted:Qty: 2 on 05/01/2024 by Mark Melo MD at [facility] N/A: Spine [id number] / / Caps Implanted:Qty: 12 on 05/01/2024 by Mark Melo MD at [facility] N/A: Spine [id number] / / 80mm Layo Implanted:Qty: 2 on 05/01/2024 by Mark Melo MD at [facility] N/A: Spine [id number] / / Gft Bone Pliaflix Prm 30cc Implanted:Qty: 1 on 05/01/2024 by Mark Melo MD at [facility] N/A: Spine Lifenet BL-2100-30 / / Procedures [...] 7 - 26 mg/dL 05/05/2024 2:33 AM [facility] Creatinine 0.56 0.56 - 0.96 mg/dL 05/05/2024 2:33 AM [facility] Sodium 138 136 - 145 mmol/L 05/05/2024 2:33 AM [facility] Potassium 3.5 3.5 - 4.5 mmol/L 05/05/2024 2:33 AM [facility] Chloride 101 98 - 107 mmol/L 05/05/2024 2:33 AM [facility] CO2 28 22 - 29 mmol/L 05/05/2024 2:33 AM [facility] Glucose 111 70 - 115 mg/dL 05/05/2024 2:33 AM [facility] Calcium 8.9 8.4 - 10.2 mg/dL 05/05/2024 2:33 AM [facility] Anion Gap 9 6 - 16 05/05/2024 2:33 AM [facility] BUN/Creatinine Ratio 21 7 - 23 05/05/2024 2:33 AM [facility] Osmolality Calculated 286 275 - 295 mOsm/kg 05/05/2024 2:33 AM CDT [facility] eGFR by CKD-EPI >90 >=90 mL/min/1.7 3 m2 05/05/2024 2:33 AM CDT [facility] Blood BLOOD SPECIMEN / Unknown Lab Venipuncture / Unknown 05/05/2024 1:36 AM CDT 05/05/2024 2:09 AM CDT Mark Melo MD LAB - CHEMISTRY ORDERABLES Final Result [facility] [address] [place] [address], [facility] [phone] from Last 3 Months or Most Recently Relevant to Health Maintenance Insurance [employer] [facility] Advance Directives * Full Code (Latest Code Status on File) Date Activated Date Inactivated Comments 05/01/2024 12:04 PM 05/05/2024 12:42 PM Care Teams Brake Repairer Railroad Relationship Specialty Start Date End Date Good White MD [address] [place] [phone] PCP - General Family Medicine 03/10/24
--- OUTSIDE RECORDS SUMMARY | 2024-11-28 15:09 | XMS_ITS | Clinical Summary ---
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
--- OUTSIDE RECORDS SUMMARY | 2024-11-28 15:09 | XMS_ITS | Referral Summary ---
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 [place] Care Teams Methods Specialist Relationship Specialty Start Date End Date Renea Maciel NP PCP - General Family Medicine 08/09/23
--- OUTSIDE RECORDS SUMMARY | 2024-11-28 15:09 | XMS_ITS | Clinical Summary ---
Author Organization [facility] Address [address] [place] [address] Care Team Providers Care Shore Working Supervisor Name Role Phone Zora Ruano DO Primary [...] vitamin D2, ergocalciferol, (VITAMIN D, ERGOCALCIFEROL, ) 70870 UNITS capsule Take 50,000 Units by mouth. [...] and (< 1%). PAF (paroxysmal atrial fibrillation) ([facility]) 03/07/2021 Assessment & Plan (04/11/2021 [...] any rate or rhythm controlling medication. Her [id number] score is 0. Hyperlipidemia, mixed 03/07/2021 Assessment [...] patient's age to complete this topic Insurance [facility] Advance Directives * Full Code (Latest Code Status on File) Date Activated Date Inactivated Comments 03/25/2021 2:05 PM 03/25/2021 4:44 PM Care Teams Shore Working Supervisor Relationship Specialty Start Date End Date Zora Ruano DO PCP - General FAMILY PRACTICE 03/26/21
--- OUTSIDE RECORDS SUMMARY | 2024-11-28 15:09 | XMS_ITS | Encounter Summary ---
Author Organization [facility] Address [address] [place] [address] Care Team Providers Care Top Lifter Name Role Phone Lauren Quiroz MD Primary Care Provider [phone] Zora Nixon DO Primary Care Provider + Patel Osborne MD Primary Care Provider [phone] Renea Maciel NP Primary Care Provider [phone] Encounter Details Date Type Department Care Team (Late st Contact Info) Description 08/24/2016 Orders Only [facility] ProviderAnusha MD [address] [place] [id number] Social History Tobacco Use Types Packs/Day Years Used Date Smoking Tobacco: Former Alcohol Use Standard Drinks/Week Comments Yes 0 (1 standard drink = 0.6 oz pur e alcohol) Comments Unknown Sex and Gender Information Value Date Recorded Sex Assigned at Not on file Legal 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
--- OUTSIDE RECORDS SUMMARY | 2024-11-28 15:09 | XMS_ITS | Encounter Summary ---
Author Organization [facility] Address [address] [place] [address] Care Team Providers Care University Teacher Name Role Phone None, Provider Primary Care Provider Zora Leone DO Primary Care Provider Howard anderson Encounter Details Date Type Department Care Team (Late st Contact Info) Description 03/24/2021 Hospital Orders Only [facility] Rubber Boots And Shoes Repairer [address] [place], [place] [phone] Braulio Hickman MD [address] [place], [place] [phone] Social History Tobacco Use Types Packs/Day Years [...] AM CDT Jessica Cardenas RN Active * [place] Suicide Severity Rating Scale (Screener/Recent Self-Report) Question [...] on filedocumented in this encounter Care Teams University Teacher Relationship Specialty Start Date End Date None, Provider, PCP - General 02/21/21 03/25/21 Zora Ruano DO PCP - General FAMILY PRACTICE 03/26/21 documented as of this encounter
--- NOTE | 2024-11-28 15:34 | ED_ITS ---
HPI - Abdominal Pain General Chief Complaint: Abdominal Pain Stated Complaint: Sent by PMD for Appendix issues-CT done Time Seen by Provider: 11/28/24 14:34 Source: patient Mode of arrival: ambulatory Limitations: no limitations History of Present Illness HPI narrative: This is a 64-year-old female, with history rheumatoid arthritis and SVT, presents to the emergency department recommendation from her primary care doctor that she has acute appendicitis. The patient states Wednesday she began developing periumbilical dull pain that progressed to right lower quadrant intermittent sharp pain at max rated 8/10. Insert associated with some vomiting though no diarrhea or bleeding of any kind. She has no other complaints at this time. Related Data Home Medications ?Medication ?Instructions ?Recorded ?Confirmed ?Last Taken ?Type aspirin 81 mg chewable tablet 81 mg PO DAILY 12/08/19 11/28/24 07/08/24 History (Sarah Chewable Low Dose Aspirin) Lactobacillus 1 cap PO DAILY 01/31/20 11/28/24 07/08/24 History acidophilus-Bifidobac.animalis 2.5 billion cell capsule (Daily Probiotic) calcium carbonate (Calcium 600) 1 mg PO DAILY 01/31/20 11/28/24 07/08/24 History ascorbic acid (vitamin C) 1,000 mg 2 g PO DAILY 09/19/20 11/28/24 07/10/24 History tablet ergocalciferol (vitamin D2) 50 mcg 50 mcg PO WEEKLY 09/19/20 11/28/24 07/08/24 History (2,000 unit) tablet Daily Multivitamin 1 tab-cap PO DAILY 07/03/24 11/28/24 07/08/24 History magnesium oxide 400 mg (241.3 mg 400 mg PO DAILY 09/04/24 11/28/24 Unknown History magnesium) tablet Allergies Allergy/AdvReac Type Severity Reaction Status Date / Time venom-wasp Allergy Severe Hives Verified 11/28/24 16:03 Review of Systems 2 Review of Systems: All systems reviewed & are unremarkable except as noted in HPI and below PMFSH Past Medical History Medical History Claustrophobia Seronegative rheumatoid arthritis of both hands Depression Osteoporosis Anxiety SVT (supraventricular tachycardia) GERD (gastroesophageal reflux disease) Surgical History Surgical History History of tubal ligation History of carpal tunnel release S/P cervical spinal fusion H/O foot surgery Family History Family History Mother Family history of thyroid disease Carcinoma of colon Grandparent Family history of psoriasis Family history of malignant neoplasm Family history of congestive heart failure Father Family history of lung cancer Family history of malignant neoplasm Other Family history of cardiovascular disease Hypertension Social History Social History Smoking packs per day: 0.5 Smoking cigarettes per day: 10.0 Years smoked: 15 Smoking pack-years: 7.50 Smoking status: Former smoker Tobacco type: cigarettes Second hand tobacco smoke exposure: No Smoking end date: 07/26/98 Alcohol intake: never Substance use: never Substance use type: does not use Lack of Transportation: No Lack of Food: Never True Current Housing: I Have Housing Concerned About Future Housing: No Difficulty Paying Gas/Electric Bills: No Difficulty Paying for Meds: No Currently Unemployed: No Education: High School Diploma/GED Difficulty w/ Childcare or Family Care: No Living arrangements: with family Occupation/Education: retired Gender identity (if verbalized by the patient): Female Spiritual care concerns: No Agree to blood products: Yes Exam 2 Narrative: GENERAL: Well-developed, well-nourished, and in no acute distress. HEAD: Normocephalic, atraumatic. EYES: PERRLA and EOMI. CHEST: Clear to auscultation. No respiratory distress. No wheezes rales or rhonchi HEART: Regular rate and rhythm. No murmur heard. Normal peripheral pulses. ABDOMEN: Soft, right lower quadrant tenderness to palpation without rebound though passively guarding, nondistended, normal active bowel sounds. Mild right CVA tenderness, no left CVA tenderness EXTREMITIES: Normal range of motion. No edema. SKIN: Warm, dry, no rash. NEURO: Alert and oriented x3. No focal deficit. Moving all 4 limbs spontaneously PSYCH: Normal mood and affect. Course Course Emergency Course: 16:03 - CBC within normal limits. Chemistries ordered earlier today by the patient's primary care doctor are unremarkable. CT abdomen pelvis demonstrates changes consistent with acute appendicitis without abscess or perforation. I discussed the patient with General Surgeon, Dr. Baker who accepts admission. Will start Zosyn and keep the patient NPO. I discussed these findings recommendations with the patient, who voices understanding is comfortable with the plan. All questions answered to her satisfaction Vital Signs Vital signs: Vital Signs Temperature 97.6 F 11/28/24 14:12 Pulse Rate 86 11/28/24 14:12 Respiratory Rate 16 11/28/24 14:12 Blood Pressure 119/81 11/28/24 14:12 Pulse Oximetry 100 11/28/24 14:12 Oxygen Delivery Room Air 11/28/24 14:12 Temperature 97.6 F 11/28/24 14:12 Pulse Rate 86 11/28/24 14:12 Respiratory Rate 16 11/28/24 14:12 Blood Pressure 119/81 11/28/24 14:12 Pulse Oximetry 100 11/28/24 14:12 Oxygen Delivery Room Air 11/28/24 14:12 MDM - Abdominal Pain MDM Narrative Medical decision making narrative: Plan: Labs, imaging, pain control, reassess Differential Diagnosis Differential diagnosis: Likely abdominal pain, acute appendicitis, calculus of kidney, diverticulitis, endometriosis, gastroenteritis, small bowel obstruction and other (Metabolic abnormality, UTI, other) Lab Data 11/28/24 14:39 Labs: Lab Results 11/28/24 Range/Units 14:39 WBC 4.6 (4.5-10.0) K/mm3 RBC 4.23 (4.2-5.4) M/mm3 Hgb 13.2 (12.0-15.0) g/dL Hct 40.0 (37.0-47.0) % MCV 94.6 (80-100) fl MCH 31.2 (26-34) pg MCHC 33.0 (32-36) g/dl RDW 12.3 (11.5-14.5) % Plt Count 186 (150-375) k/mm3 MPV 10.9 H (7.4-10.4) fl Immature Gran % (Auto) 0.4 (0-0.5) % Neut % (Auto) 50.3 (45.5-73.1) % Lymph % (Auto) 30.0 (18.3-44.2) % [place] % (Auto) 14.3 H (2.6-8.5) % Eos % (Auto) 4.1 (0-4.4) % Baso % (Auto) 0.9 (0.2-1.2) % Lymph # (Auto) 1.38 (0.9-3.2) K/mm3 [place] # (Auto) 0.7 H (0.1-0.6) K/mm3 Eos # (Auto) 0.2 (0-0.3) K/mm3 Baso # (Auto) 0.0 (0.0-0.1) K/mm3 Abs Immat Gran (auto) 0.02 (0.00-0.031) K/mm3 Absolute Neuts (auto) 2.3 (1.3-6.7) K/mm3 Absolute Nucleated RBC 0.000 (0.0-0.012) K/mm3 Nucleated RBC % 0.0 (0.0-0.2) % Discharge Plan Discharge Clinical Impression: Abdominal pain, RLQ, Nausea Acute appendicitis Qualifiers: Acute appendicitis type: with localized peritonitis Appendicitis gangrene presence: without gangrene Appendicitis perforation presence: without perforation Appendicitis abscess presence: without abscess Qualified Code(s): K 35.30 - Acute appendicitis with localized peritonitis, without perforation or gangrene Patient Disposition: Still a Patient Condition: Stable Instructions: Antibiotic Form Patient Language: [place] Prescriptions: No Action magnesium oxide 400 mg (241.3 mg magnesium) tablet 400 mg PO DAILY duloxetine [Cymbalta] 60 mg capsule,delayed release(DR/EC) 60 mg PO DAILY Qty: 90 3RF Rx Instructions: take daily with the 30mg capsule to equal 90mg duloxetine [Cymbalta] 30 mg capsule,delayed release(DR/EC) 30 mg PO DAILY Qty: 90 3RF Rx Instructions: take with the 60mg cap daily to equal 90 mg meloxicam 7.5 mg tablet 7.5 mg PO DAILY PRN (Reason: pain) Qty: 90 3RF aspirin [Sarah Chewable Aspirin] 81 mg tablet,chewable 81 mg PO DAILY ascorbic acid (vitamin C) 1,000 mg tablet 2 g PO DAILY ergocalciferol (vitamin D2) 50 mcg (2,000 unit) tablet 50 mcg PO WEEKLY Rx Instructions: Patient takes 3 weeks of the month Daily Multivitamin 1 tab-cap PO DAILY Daily Probiotic 2.5 billion cell Capsule 1 cap PO DAILY calcium carbonate [Calcium 600] 600 mg calcium (1,500 mg) Tablet 1 mg PO DAILY metoprolol tartrate 25 mg tablet See Rx Instructions .ROUTE .COMPLEX Qty: 90 4RF Dose Instruction: TAKE 1/2 TABLET BY MOUTH TWICE DAILY Rx Instructions: TAKE 1/2 TABLET BY MOUTH TWICE DAILY Follow-up/Referrals: Renea Maciel, ELECTRICAL PROSPECTING SUPERVISOR-C [Primary Care Provider] - Time of Disposition: 16:03
[2024-11-28] MEDS: ONDANSETRON INJ 4 MG/2 ML VIAL IV PUSH (15:38)
[2024-11-28] MEDS: LACTATED RINGERS 1,000 ML 150 ML IV CONT (15:38)
[2024-11-28 15:58] LABS: Add Urine Microscopic? NO; Appearance Urine Clear (Clear); Bilirubin Urine Negative (Negative); Blood Urine Negative (Negative); Color Urine Yellow (Yellow); Glucose Urine UA Negative (Negative); Ketones Urine 1+ mg/dL (Negative); Leukocyte Esterase Ur Negative LEU/UL (Negative); Nitrate Urine Negative (Negative); Protein Urine Negative (Negative); Specific Grav Ur > 1.045 (1.001-1.035); Urobilinogen Urine 0.2 mg/dL (<2.0); pH Urine 8.5 (5.0-9.0)
[2024-11-28 16:03] VITALS: BP 121/78; PULSE 72; RESP 15; O2SAT 100
--- NOTE | 2024-11-28 16:04 | PC.NURSE ---
Pt states she last intake at 0930 reports she ate a banana and a couple sips of coffee
--- NOTE | 2024-11-28 16:23 | PM.IMHP ---
H&P: HPI History of Present Illness Date/Time: 11/28/24 16:23 Chief Complaint: Right lower quadrant pain Narrative: This is a 64-year-old woman who presented to the ED with right lower quadrant abdominal pain x 3 days. She reports waking up with pain Wednesday morning. She had associated bloating and nausea, but no vomiting. Her pain has remained persistent and is aggravated by any movement or walking. She was evaluated by her PCP today in the office. Outpatient workup showed a normal white blood cell count and CT evidence of acute uncomplicated appendicitis. She was then directed to the ED due to the CT findings. Only previous abdominal surgery is a tubal ligation. She also has a history of rheumatoid arthritis and SVT. She is not taking any medications for her RA. Review of Systems Review of Systems: All systems reviewed & are unremarkable except as noted in HPI and below PMFSH Past Medical History Medical History Claustrophobia Seronegative rheumatoid arthritis of both hands Depression Osteoporosis Anxiety SVT (supraventricular tachycardia) GERD (gastroesophageal reflux disease) Surgical History Surgical History History of tubal ligation History of carpal tunnel release S/P cervical spinal fusion H/O foot surgery Family History Family History Mother Family history of thyroid disease Carcinoma of colon Grandparent Family history of psoriasis Family history of malignant neoplasm Family history of congestive heart failure Father Family history of lung cancer Family history of malignant neoplasm Other Family history of cardiovascular disease Hypertension Social History Social History Smoking packs per day: 0.5 Smoking cigarettes per day: 10.0 Years smoked: 15 Smoking pack-years: 7.50 Smoking status: Former smoker Tobacco type: cigarettes Second hand tobacco smoke exposure: No Smoking end date: 07/26/98 Alcohol intake: never Substance use: never Substance use type: does not use Lack of Transportation: No Lack of Food: Never True Current Housing: I Have Housing Concerned About Future Housing: No Difficulty Paying Gas/Electric Bills: No Difficulty Paying for Meds: No Currently Unemployed: No Education: High School Diploma/GED Difficulty w/ Childcare or Family Care: No Living arrangements: with family Occupation/Education: retired Gender identity (if verbalized by the patient): Female Spiritual care concerns: No Agree to blood products: Yes Meds Home Medications and Allergies Home Medications ?Medication ?Instructions ?Recorded ?Confirmed ?Type aspirin 81 mg chewable tablet 81 mg PO DAILY 12/08/19 11/28/24 History (Sarah Chewable Low Dose Aspirin) Lactobacillus 1 cap PO DAILY 01/31/20 11/28/24 History acidophilus-Bifidobac.animalis 2.5 billion cell capsule (Daily Probiotic) calcium carbonate (Calcium 600) 1 mg PO DAILY 01/31/20 11/28/24 History ascorbic acid (vitamin C) 1,000 mg 2 g PO DAILY 09/19/20 11/28/24 History tablet ergocalciferol (vitamin D2) 50 mcg 50 mcg PO WEEKLY 09/19/20 11/28/24 History (2,000 unit) tablet metoprolol tartrate 25 mg tablet See Rx Instructions .Route 09/20/23 11/28/24 Rx .COMPLEX #90 tabs Daily Multivitamin 1 tab-cap PO DAILY 07/03/24 11/28/24 History duloxetine 30 mg capsule,delayed 30 mg PO DAILY #90 caps 09/04/24 11/28/24 Rx release (Cymbalta) duloxetine 60 mg capsule,delayed 60 mg PO DAILY #90 caps 09/04/24 11/28/24 Rx release (Cymbalta) magnesium oxide 400 mg (241.3 mg 400 mg PO DAILY 09/04/24 11/28/24 History magnesium) tablet meloxicam 7.5 mg tablet 7.5 mg PO DAILY PRN pain #90 tabs 09/04/24 11/28/24 Rx Allergies Allergy/AdvReac Type Severity Reaction Status Date / Time venom-wasp Allergy Severe Hives Verified 11/28/24 16:03 Vital Signs Vital Signs - 24 hr 11/28/24 14:12 11/28/24 16:03 Temperature 97.6 F Pulse Rate 86 72 Respiratory Rate 16 15 Blood Pressure 119/81 121/78 Pulse Oximetry 100 100 Oxygen Delivery Room Air Exam Const: General: comfortable and no acute distress Nutritional Appearance: average body habitus Orientation/consciousness: patient oriented x3 HENMT: Head: normocephalic and atraumatic Ears: hearing grossly normal bilaterally Mouth: Yes moist mucous membranes Eyes: General: appearance normal, both eyes and all related structures Pupils: Equal, round and reactive pupils present Neck: Neck: normal visual inspection and full ROM Resp: Effort & Inspection: no respiratory distress Auscultation: clear to auscultation bilaterally Cardio: Rate: regular rate Rhythm: regular rhythm Peripheral pulses: Peripheral pulses 2+ throughout GI: Inspection: non-distended and no scars GI Palp: Yes Soft to palpation, Yes Tenderness to palpation present (GI) (Right lower quadrant), No Guarding due to palpation present (GI), Yes No hepatosplenomegaly present, No Hernia present and No Rebound tenderness present Auscultation: normal bowel sounds Skin: General skin exam: normal color Neuro: General: moves all extremities and no focal motor deficits Speech: normal speech Motor exam (neuro): 5/5 motor strength present throughout Extrem: General: normal to inspection and no edema Psych: Mental Status: mental status grossly normal Attitude: cooperative Insight: Good insight present (Psych) Judgement: Good judgement present (Psych) H&P: Results Labs Labs: Short CBC 11/28/24 Range/Units 14:39 WBC 4.6 (4.5-10.0) K/mm3 Hgb 13.2 (12.0-15.0) g/dL Hct 40.0 (37.0-47.0) % Plt Count 186 (150-375) k/mm3 Urine 11/28/24 Range/Units 15:34 Urine Color Yellow (Yellow) Urine Appearance Clear (Clear) Urine pH 8.5 (5.0-9.0) Ur Specific [place] > 1.045 H (1.001-1.035) Urine Protein Negative (Negative) mg/dL Urine Glucose (UA) Negative (Negative) mg/dL Imaging CT scan - abdomen: Radiologist's impression: CT of the Abdomen and Pelvis: Indication: Abdominal pain Technique: 2.5 mm axial scans were obtained through the abdomen and pelvis following intravenous administration of 100 cc of Omnipaque 350. Dose reduction technique was used on this scan by utilizing automated exposure control and iterative reconstruction technique. The dose-length product (DLP) was 714.69 mGy-cm. Findings: Scans through the lung bases are unremarkable. The liver, spleen, pancreas, gallbladder, adrenals and kidneys are within normal limits. No evidence of aortic aneurysm. No lymphadenopathy. Appendix dilated to 10 mm with periappendiceal inflammatory stranding. No abscess or free air. No bowel obstruction. Images through the pelvis were performed. Urinary bladder unremarkable. No pelvic mass seen. No ascites. Impression: Findings compatible with uncomplicated acute appendicitis, as detailed above. No abscess or free air. Assessment and Plan Assessment and plan (1) Acute appendicitis: Qualifiers: Acute appendicitis type: with localized peritonitis Appendicitis abscess presence: without abscess Appendicitis gangrene presence: without gangrene Appendicitis perforation presence: without perforation Qualified Code(s): K35.30 - Acute appendicitis with localized peritonitis, without perforation or gangrene Code(s): K35.80 - Unspecified acute appendicitis Status: Acute Assessment and Plan: CT scan reviewed and discussed with the patient. There is evidence of acute appendicitis. No perforation or abscess evident on CT. We discussed both nonoperative treatment with IV antibiotics/monitoring versus proceeding with surgery. We discussed the risks of recurrence or treatment failure with the option of antibiotic therapy. I also discussed the details of a laparoscopic appendectomy, possible open, under general anesthesia that would be done by Dr. Baker. Description of the procedure, risks, benefits, alternatives, and expected recovery were discussed. She agrees to proceed with surgery. Will start broad-spectrum IV antibiotics, IV fluids, and she will be added to the surgery schedule tomorrow. We will allow clear liquids until midnight. (2) SVT (supraventricular tachycardia): Code(s): I47.1 - Supraventricular tachycardia Status: Acute (3) Seronegative rheumatoid arthritis of both hands: Code(s): M06.041 - Rheumatoid arthritis without rheumatoid factor, right hand; M06.042 - Rheumatoid arthritis without rheumatoid factor, left hand Status: Acute Plan I have discussed the patient's case and plan of care with Dr. Baker.
--- NOTE | 2024-11-28 16:42 | PC.NURSE ---
Dietary called for meal tray order.
[2024-11-28] MEDS: PIPERACILLN/TAZ 3.375GM/NS50ML 3.375 GM/50 ML BAG IVPB (16:45)
[2024-11-28 18:35] VITALS: BP 108/74; PULSE 90; RESP 16; TEMP 36.6; O2SAT 96; BMI 26.7
[2024-11-28 20:00] VITALS: O2SAT 100
[2024-11-28 21:00] VITALS: BP 111/74; PULSE 76; RESP 16; TEMP 35.9; O2SAT 97
[2024-11-28 23:00] VITALS: PULSE 80
[2024-11-28] MEDS: METOPROLOL TARTRATE 12.5 MG TABLET PO (23:00)
[2024-11-28] MEDS: MORPHINE SULFATE (*CRX) 4 MG/ML INJ 2 MG IV PUSH (23:02)
[2024-11-29] VITALS (12 sets, daily range): BP systolic 105–142; BP diastolic 60–83; PULSE 69–102; RESP 13–20; TEMP 35.8–36.9; O2SAT 96–100
[2024-11-29] MEDS: PIPERACILLN/TAZ 3.375GM/NS50ML 3.375 GM/50 ML BAG IVPB ×5 (05:42→23:35)
--- NOTE | 2024-11-29 07:00 | PC.NURSE ---
Patient is awake and slept well throughout the night. Patient was given IV morphine as ordered x1 with some relief of lower abdomen pain. Plan for OR procedure at 1400. Patient has maintained NPO status since MN. No mental status change and no behaviors noted that warrant attention.
[2024-11-29 07:10] LABS: Basophils Percent Auto 0.8 % (0.2-1.2); Eosinophils Absolute Auto 0.3 K/mm3 (0-0.3); Eosinophils Percent Auto 6.8 % (0-4.4); Hematocrit 38.3 % (37.0-47.0); Hemoglobin 12.8 g/dL (12.0-15.0); Immature Granulocyte Absolute 0.01 K/mm3 (0.00-0.031); Immature Granulocyte Percent A 0.3 % (0-0.5); Lymphocytes Absolute Auto 1.25 K/mm3 (0.9-3.2); Lymphocytes Percent Auto 31.6 % (18.3-44.2); Mean Corpuscular HGB Conc 33.4 g/dl (32-36); Mean Corpuscular Hemoglobin 31.5 pg (26-34); Mean Corpuscular Volume 94.3 fl (80-100); Mean Platelet Volume 10.8 fl (7.4-10.4); Monocytes Absolute Auto 0.5 K/mm3 (0.1-0.6); Monocytes Percent Auto 13.6 % (2.6-8.5); Neutrophils Absolute Auto 1.9 K/mm3 (1.3-6.7); Neutrophils Percent Auto 46.9 % (45.5-73.1); Platelet Count Result 175 k/mm3 (150-375); Red Blood Count 4.06 M/mm3 (4.2-5.4); Red Cell Distribution Width 12.2 % (11.5-14.5)
[2024-11-29 07:24] LABS: INR 1.1; Prothrombin Time 14.3 Seconds (11.1-14.7)
[2024-11-29 07:25] LABS: Anion Gap 5 mmol/L (4-12); Blood Urea Nitrogen 12 mg/dL (7-17); Calcium 8.9 mg/dL (8.4-10.2); Carbon Dioxide 31 mmol/L (22-30); Chloride 103 mmol/L (98-107); Estimated CRCL calculation 61 ml/min; Estimated Glomerular Filt Rate > 60; Glucose 93 mg/dL (65-110); Partial Thromboplastin Time 29.1 Seconds (22.3-36.8); Potassium 4.4 mmol/L (3.4-5.0); Sodium 139 mmol/L (137-145)
[2024-11-29] MEDS: METOPROLOL TARTRATE 12.5 MG TABLET PO ×2 (09:24→20:30)
--- NOTE | 2024-11-29 12:43 | PC.NURSE ---
Patient transferred to surgery via wheelchair at 1242
[2024-11-29] MEDS: ACETAMINOPHEN 500 MG TABLET 1000 MG PO (12:55)
[2024-11-29] MEDS: KETOROLAC 15 MG/ML VIAL (*BKC) IV PUSH (12:55)
--- NOTE | 2024-11-29 13:55 | WPDANESEPPF ---
Anes - Initial Pre Proc Eval Procedure: Operation Date: 11/29/24 14:00 Proposed Procedures p Laparoscopic Appendectomy, Possible Open - Jesus Baker DO Date/Time: 11/29/24 13:55 Surgeon: Jesus Baker DO Pre Op Diagnosis: Acute Appendicitis Patient Data Age: 64 Gender: F Height: 1.65 m Weight: 73 kg Last Vital Signs Temp 36.9 C 11/29/24 12:50 Pulse 76 11/29/24 12:50 Resp 20 11/29/24 12:50 BP 133/79 11/29/24 12:50 Pulse Ox 100 11/29/24 12:50 O2 Del Method Room Air 11/29/24 12:50 Allergies Allergy/AdvReac Type Severity Reaction Status Date / Time venom-wasp Allergy Severe Hives Verified 11/29/24 13:11 Home Medications ?Medication ?Instructions ?Recorded ?Confirmed ?Type aspirin 81 mg chewable tablet 81 mg PO DAILY 12/08/19 11/28/24 History (Sarah Chewable Low Dose Aspirin) Lactobacillus 1 cap PO DAILY 01/31/20 11/28/24 History acidophilus-Bifidobac.animalis 2.5 billion cell capsule (Daily Probiotic) calcium carbonate (Calcium 600) 1 mg PO DAILY 01/31/20 11/28/24 History ascorbic acid (vitamin C) 1,000 mg 2 g PO DAILY 09/19/20 11/28/24 History tablet ergocalciferol (vitamin D2) 50 mcg 50 mcg PO WEEKLY 09/19/20 11/28/24 History (2,000 unit) tablet metoprolol tartrate 25 mg tablet See Rx Instructions .Route 09/20/23 11/28/24 Rx .COMPLEX #90 tabs Daily Multivitamin 1 tab-cap PO DAILY 07/03/24 11/28/24 History duloxetine 30 mg capsule,delayed 30 mg PO DAILY #90 caps 09/04/24 11/28/24 Rx release (Cymbalta) duloxetine 60 mg capsule,delayed 60 mg PO DAILY #90 caps 09/04/24 11/28/24 Rx release (Cymbalta) magnesium oxide 400 mg (241.3 mg 400 mg PO DAILY 09/04/24 11/28/24 History magnesium) tablet meloxicam 7.5 mg tablet 7.5 mg PO DAILY PRN pain #90 tabs 09/04/24 11/28/24 Rx Laboratory Tests 11/28/24 11/28/24 11/29/24 14:39 15:34 06:45 WBC 4.6 K/mm3 4.0 L K/mm3 (4.5-10.0) (4.5-10.0) RBC 4.23 M/mm3 4.06 L M/mm3 (4.2-5.4) (4.2-5.4) Hgb 13.2 g/dL 12.8 g/dL (12.0-15.0) (12.0-15.0) Hct 40.0 % 38.3 % (37.0-47.0) (37.0-47.0) MCV 94.6 fl 94.3 fl (80-100) (80-100) MCH 31.2 pg 31.5 pg (26-34) (26-34) MCHC 33.0 g/dl 33.4 g/dl (32-36) (32-36) RDW 12.3 % 12.2 % (11.5-14.5) (11.5-14.5) Plt Count 186 k/mm3 175 k/mm3 (150-375) (150-375) MPV 10.9 H fl 10.8 H fl (7.4-10.4) (7.4-10.4) Immature Gran % (Auto) 0.4 % 0.3 % (0-0.5) (0-0.5) Neut % (Auto) 50.3 % 46.9 % (45.5-73.1) (45.5-73.1) Lymph % (Auto) 30.0 % 31.6 % (18.3-44.2) (18.3-44.2) Cache % (Auto) 14.3 H % 13.6 H % (2.6-8.5) (2.6-8.5) Eos % (Auto) 4.1 % 6.8 H % (0-4.4) (0-4.4) Baso % (Auto) 0.9 % 0.8 % (0.2-1.2) (0.2-1.2) Lymph # (Auto) 1.38 K/mm3 1.25 K/mm3 (0.9-3.2) (0.9-3.2) [place] # (Auto) 0.7 H K/mm3 0.5 K/mm3 (0.1-0.6) (0.1-0.6) Eos # (Auto) 0.2 K/mm3 0.3 K/mm3 (0-0.3) (0-0.3) Baso # (Auto) 0.0 K/mm3 0.0 K/mm3 (0.0-0.1) (0.0-0.1) Abs Immat Gran (auto) 0.02 K/mm3 0.01 K/mm3 (0.00-0.031) (0.00-0.031) Absolute Neuts (auto) 2.3 K/mm3 1.9 K/mm3 (1.3-6.7) (1.3-6.7) Absolute Nucleated RBC 0.000 K/mm3 0.000 K/mm3 (0.0-0.012) (0.0-0.012) Nucleated RBC % 0.0 % 0.0 % (0.0-0.2) (0.0-0.2) PT 14.3 Seconds (11.1-14.7) INR 1.1 APTT 29.1 Seconds (22.3-36.8) Sodium 139 mmol/L (137-145) Potassium 4.4 mmol/L (3.4-5.0) Chloride 103 mmol/L (98-107) Carbon Dioxide 31 H mmol/L (22-30) Anion Gap 5 mmol/L (4-12) BUN 12 mg/dL (7-17) Creatinine 0.75 mg/dL (0.7-1.0) Estim Creat Clear Calc 61 ml/min Estimated GFR > 60 (59 - ) Glucose 93 mg/dL (65-110) Calcium 8.9 mg/dL (8.4-10.2) Urine Color Yellow (Yellow) Urine Appearance Clear (Clear) Urine pH 8.5 (5.0-9.0) Ur Specific [place] > 1.045 H (1.001-1.035) Urine Protein Negative mg/dL (Negative) Urine Glucose (UA) Negative mg/dL (Negative) Urine Ketones 1+ H mg/dL (Negative) Ur Blood (Man) Negative (Negative) Urine Nitrate Negative (Negative) Urine Bilirubin Negative (Negative) Urine Urobilinogen 0.2 mg/dL (<2.0) Leukocyte Esterase Rfl Negative PAVEL/UL (Negative) Patient hx anesthesia problems: post op nausea/vomiting Family hx anesthesia problems: none Results Review: All pre-operative results and documents have been reviewed as part of the pre-operative evaluation. [facility] Past Medical History Medical History Claustrophobia Seronegative rheumatoid arthritis of both hands Depression Osteoporosis Anxiety SVT (supraventricular tachycardia) GERD (gastroesophageal reflux disease) Surgical History Surgical History History of tubal ligation History of carpal tunnel release S/P cervical spinal fusion H/O foot surgery Family History Family History Mother Family history of thyroid disease Carcinoma of colon Grandparent Family history of psoriasis Family history of malignant neoplasm Family history of congestive heart failure Father Family history of lung cancer Family history of malignant neoplasm Other Family history of cardiovascular disease Hypertension Social History Social History Smoking packs per day: 0.5 Smoking cigarettes per day: 10.0 Years smoked: 15 Smoking pack-years: 7.50 Smoking status: Former smoker Tobacco type: cigarettes Second hand tobacco smoke exposure: No Smoking end date: 07/26/98 Alcohol intake: never Substance use: never Substance use type: does not use Do You Feel Safe in your Home?: Yes Lack of Transportation: No Lack of Food: Never True Current Housing: I Have Housing Concerned About Future Housing: No Difficulty Paying Gas/Electric Bills: No Difficulty Paying for Meds: No Currently Unemployed: No Education: High School Diploma/GED Difficulty w/ Childcare or Family Care: No Living arrangements: with family Occupation/Education: retired Gender identity (if verbalized by the patient): Female Spiritual care concerns: No Agree to blood products: Yes Anes - Eval Final PreProcedure Day of Procedure 11/29/24 13:55 Patient weight: overweight Heart: regular rate and rhythm Lungs: clear to auscultation Airway: Mallampati scale class II Neurological: alert and oriented Last oral intake: >/= 8 hours ASA classification: III Emergent: no Anesthetic plan: proceed Anesthesia type and monitoring: general ETT and standard monitoring Results Review: All pre-operative results and documents have been reviewed as part of the pre-operative evaluation. Informed Consent: The patient's anesthetic plan and its attendant risks and benefits were discussed with the patient/family/POA. Questions were solicited and answers provided to the satisfaction of the patient/family/POA.
[2024-11-29] MEDS: LACTATED RINGERS 1,000 ML 30 ML IV CONT ×2 (14:24→15:56)
[2024-11-29] MEDS: SCOPOLAMINE 1 MG PATCH 1 PATCH TRANSDERM (14:24)
--- NOTE | 2024-11-29 14:51 | WPDHPUPDATE1 ---
History and Physical Update Update Date/Time: 11/29/24 14:51 History and Physical has been reviewed, including an updated exam of the patient. There are NO changes in the patient's condition. Risks, benefits, and alternatives have been discussed and questions answered. Patient agrees to proceed with procedure.
[2024-11-29] MEDS: BUPIVACAINE/EPINEPHRINE 0.5% 10 ML VIAL 30 ML INFILTRATE (15:23)
--- NOTE | 2024-11-29 15:46 | W.PM.PROC2 ---
Procedure Note - Detailed Date of Procedure 11/29/24 Pre-op Diagnosis Acute Appendicitis Post-op Diagnosis Same Procedure Performed Laparoscopic appendectomy Surgeon Jesus Baker, DO Anesthesia General and Local (0.5% bupivicaine with epinephrine) Indications This is a 64-year-old woman who presented to the emergency department yesterday with right lower quadrant pain that started 2 days prior. She had seen her PCP yesterday and was sent for a stat CT. After receiving the CT results she was then directed to the ED. she has had some nausea and feeling feverish. She has never had any symptoms like this in the past. CT showed evidence of acute appendicitis. Her white blood count was normal. Decision was made to proceed with laparoscopic appendectomy, possible open. Findings Laparoscopic appendectomy was performed. The appendix was acutely inflamed and indurated. There was no signs of surrounding abscess. The base of the appendix appeared healthy and viable. The appendix was removed and sent to the lab for pathology. No other intra-abdominal abnormalities were noted. Description of Procedure Procedure as well as risks, benefits, and alternatives were explained to the patient. The patient agreed to proceed. Written consent was obtained and placed in chart prior to procedure. The patient was brought back to surgical suite. She was placed supine on operating table. Time-out was done to confirm the patient and procedure. The patient was then intubated by the Anesthesia Department. Her abdomen was prepped and draped in sterile fashion using chlorhexidine prep. A 5 mm incision was made just to the left of the patient's umbilicus and a 5 mm Optiview trocar was advanced through the abdominal layers under direct visualization. Once inside the peritoneal cavity, carbon dioxide insufflation was used to create a pneumoperitoneum. The camera was inserted and the abdomen was inspected. No immediate abnormalities were identified. The patient was then placed in slight Trendelenburg position and rotated to the left. A 5 mm incision was made in the suprapubic region in midline and a 5 mm trocar was inserted under direct visualization. A 12 mm incision was made in the left lower quadrant and a 12 mm trocar was inserted under direct visualization. The right lower quadrant was carefully inspected. The cecum was identified and then this was traced back to the appendix. The appendix was identified and grasped at the mesoappendix and lifted anteriorly. Careful blunt dissection was carried out at the base of the appendix through the mesoappendix using a [place] grasper. An Endo-ROD 45 mm blue load stapler was then advanced across the base of the appendix and clamped and fired. A white reload was then clamped across the mesoappendix and fired. This freed up our appendix completely. It was then placed in an EndoCatch bag and removed through the left lower quadrant port. The staple lines were then inspected. Hemostasis appeared adequate and the staple lines appeared secure. The area was then irrigated with sterile saline. The pelvis was then carefully inspected and irrigated with sterile saline as well and the remainder of the abdomen was carefully inspected. The patient was then flattened out in bed. One final inspection was made around the abdominal cavity and no other abnormalities were seen. The left lower quadrant port was removed and a Javier-Elida cone was used to approximate the fascia with an 0 Vicryl simple interrupted suture. The remaining ports were then removed under direct visualization. The camera was removed and the pneumoperitoneum was released. 0.5% bupivacaine with epinephrine was infiltrated locally around each of the incisions. The skin of the incisions was then approximated using 4-0 Monocryl subcuticular suture and Exofin glue was applied on top. The patient was then awakened from anesthesia, extubated, and transferred to Recovery. Estimated Blood Loss 5 Urine Output 300 Pathology Yes (Appendix) Complications No immediate complications Condition Stable Disposition Floor [facility] Billing Surgery - Charge Forward: Surgery Billing
[2024-11-29] MEDS: fentaNYL CITRATE INJ (*CRX) 100 MCG/2 ML VIAL 25 MCG IV PUSH (16:32)
--- NOTE | 2024-11-29 17:26 | PC.NURSE ---
Patient transferred back to room 315 via stretcher from surgery
[2024-11-30 01:49] VITALS: BP 94/47; PULSE 59; RESP 18; TEMP 36.5; O2SAT 97
[2024-11-30 02:14] LABS: Hematocrit 36.3 % (37.0-47.0); Hemoglobin 11.8 g/dL (12.0-15.0); Mean Corpuscular HGB Conc 32.5 g/dl (32-36); Mean Corpuscular Hemoglobin 30.7 pg (26-34); Mean Corpuscular Volume 94.5 fl (80-100); Mean Platelet Volume 10.5 fl (7.4-10.4); Platelet Count Result 194 k/mm3 (150-375); Red Blood Count 3.84 M/mm3 (4.2-5.4); Red Cell Distribution Width 12.1 % (11.5-14.5); White Blood Count 5.5 K/mm3 (4.5-10.0)
[2024-11-30] MEDS: LACTATED RINGERS 1,000 ML 80 ML IV CONT (02:20)
[2024-11-30 04:45] VITALS: BP 111/62; PULSE 60; RESP 16; TEMP 35.9; O2SAT 98
[2024-11-30] MEDS: PIPERACILLN/TAZ 3.375GM/NS50ML 3.375 GM/50 ML BAG IVPB (05:29)
[2024-11-30 08:01] VITALS: BP 117/104; PULSE 60; O2SAT 100
[2024-11-30 08:02] VITALS: PULSE 60
[2024-11-30] MEDS: METOPROLOL TARTRATE 12.5 MG TABLET PO (08:02)
[2024-11-30] MEDS: DULoxetine HCL 30 MG CAPSULE.DR PO (08:02)
[2024-11-30] MEDS: DULoxetine HCL 60 MG CAPSULE.DR PO (08:02)
[2024-11-30] MEDS: ASPIRIN 81 MG CHEWABLE TABLET PO (08:02)
[2024-11-30 09:27] VITALS: BP 117/63; PULSE 64; RESP 16; TEMP 36.7; O2SAT 100
--- NOTE | 2024-11-30 09:37 | WPDANESPN ---
Anes - Prog Note Post-Op Date/Time: 11/30/24 09:37 Cardiovascular status: normal Respiratory status: normal Airway patency: baseline Mental status: baseline Post-Op hydration status: normal Vital Signs: Last Vital Signs Temp 36.7 C 11/30/24 09:27 Pulse 64 11/30/24 09:27 Resp 16 11/30/24 09:27 BP 117/63 11/30/24 09:27 Pulse Ox 100 11/30/24 09:27 O2 Del Method Room Air 11/30/24 08:00 O2 Flow Rate 6 11/29/24 16:10 Pain Score (VAS): 10 I/O: Intake & Output 11/29/24 11/30/24 11/30/24 23:59 07:59 15:59 Intake Total 370 458 Balance 370 458 Laboratory Tests 11/30/24 02:05 11/29/24 06:45 11/30/24 02:05 WBC 5.5 RBC 3.84 L Hgb 11.8 L Hct 36.3 L MCV 94.5 MCH 30.7 MCHC 32.5 RDW 12.1 Plt Count 194 MPV 10.5 H Post-procedural complaints: none Patient Feedback: Patient satisfied with anesthetic care.
--- NOTE | 2024-11-30 12:00 | P.DS_ITS ---
DS: Admitting Diagnosis Discharge Date 11/30/2024 Admitting Diagnosis Acute appendicitis DS: Discharge Diagnosis Discharge Diagnosis (1) Acute appendicitis: Qualifiers: Acute appendicitis type: with localized peritonitis Appendicitis abscess presence: without abscess Appendicitis gangrene presence: without gangrene Appendicitis perforation presence: without perforation Qualified Code(s): K35.30 - Acute appendicitis with localized peritonitis, without perforation or gangrene Code(s): K35.80 - Unspecified acute appendicitis Status: Acute DS: Summary Hospital Course Reason for hospitalization: Acute appendicitis Hospital Course: This is a 64-year-old woman who presented to the emergency department on 11/28/2024 with right lower quadrant pain. She had seen her PCP earlier that day a and a CT was ordered as an outpatient. CT showed evidence of acute appendicitis and she was then referred to the ER for further workup. Her white blood count was normal and she was hemodynamically stable. She was started on broad-spectrum IV antibiotics and was admitted to the hospital. She underwent laparoscopic appendectomy on 11/29/2024. Surgery was uncomplicated and she was returned to the surgical floor postoperatively. Her diet and activity were advanced as tolerated. She was still experiencing postoperative pain initially and her blood pressure was slightly low. This responded to IV fluids and her pa in was then better controlled. She was tolerating a regular diet and ambulating on her own. She was discharged on 11/30/2024. Status at Discharge Functional status at discharge: independent ambulation Overall status at discharge: patient is progressing back to baseline Time Spent with Patient Time attestation: Total time spent providing and/or coordinating discharge services: Time spent: Less than 30 minutes Exam Const: General: comfortable and no acute distress Orientation/consciousness: patient oriented x3 Resp: Effort & Inspection: normal respiratory effort Auscultation: clear to auscultation bilaterally Cardio: Rate: regular rate Rhythm: regular rhythm Heart sounds: S1 normal heart sound present and S2 normal heart sound present GI: Inspection: non-distended and incision (Intact with glue) GI Palp: Yes Soft to palpation and Yes Tenderness to palpation present (GI) (Incisional) Auscultation: normal bowel sounds DS: Data Data Completed and Pending Pending studies at discharge: Pending at discharge 11/29/24 15:20 Surgical [PTH] Routine Labs on day of discharge: Labs from last 24 hours 11/29/24 11/28/24 06:45 15:34 WBC 4.0 L RBC 4.06 L Hgb 12.8 Hct 38.3 MCV 94.3 MCH 31.5 MCHC 33.4 RDW 12.2 Plt Count 175 MPV 10.8 H Immature Gran % (Auto) 0.3 Neut % (Auto) 46.9 Lymph % (Auto) 31.6 [place] % (Auto) 13.6 H Eos % (Auto) 6.8 H Baso % (Auto) 0.8 Lymph # (Auto) 1.25 [place] # (Auto) 0.5 Eos # (Auto) 0.3 Baso # (Auto) 0.0 Abs Immat Gran (auto) 0.01 Absolute Neuts (auto) 1.9 Absolute Nucleated RBC 0.000 Nucleated RBC % 0.0 PT 14.3 INR 1.1 APTT 29.1 Sodium 139 Potassium 4.4 Chloride 103 Carbon Dioxide 31 H Anion Gap 5 BUN 12 Creatinine 0.75 Estim Creat Clear Calc 61 Estimated GFR > 60 Glucose 93 Calcium 8.9 Urine Color Yellow Urine Appearance Clear Urine pH 8.5 Ur Specific [place] > 1.045 H Urine Protein Negative Urine Glucose (UA) Negative Urine Ketones 1+ H Ur Blood (Man) Negative Urine Nitrate Negative Urine Bilirubin Negative Urine Urobilinogen 0.2 Leukocyte Esterase Rfl Negative Discharge Plan Discharge Attending physician on discharge: Jesus Mccloud Consulting providers: Sho Mayfield; Garcia Jordan; Zora Stover; Tony Lynne Discharging Clinician: Jesus Mccloud Patient Disposition: Home Activity: other - see discharge instructions Diet: regular Wound Care Instructions: other - see discharge instructions Discharge Instructions: DISCHARGE INSTRUCTION SHEET FOR HERNIA, GALLBLADDER AND APPENDIX SURGERIES DR. MCCLOUD PATIENT TO TAKE HOME 1. May shower in 24 hours, no soaking in bath x 2weeks. 2. Call office for: * Wound increasingly painful or bleeding * Vomiting * Fever of greater than 101 degrees 3. If no bowel movement for three days, take 1 oz. (30 ml) Milk of Magnesia or MiraLax 17g 1 to 2 times daily. 4. No heavy lifting > 10-15 pounds x weeks for hernia repairs and 2 weeks for laparoscopic cholecystectomy or appendectomy. 5. No driving for 3 days or while taking narcotic pain medications. 6. Ice to surgical site for 48 hours (30 min on, then 30 min off). 7. Up walking 10-30 minutes three times per day. 8. Resume previous home medications. 9. Follow-up 10-14 days in office for wound check or as previously scheduled. ([phone]) 10. Oral pain medications prescription to be sent to pharmacy. Take Tylenol 500mg every 6 hours and Ibuprofen 600mg every 6 hours for the first 2 days, then as needed. 11. NUTRITION: Start out by drinking fluids and increase your diet as tolerated. If you experience nausea, try dry toast, crackers, and 7-UP. If nausea or vomiting persists, contact your surgeon?s office. 12. Gallbladders-Low Fat Diet for 2 weeks (send care note of low fat diet) 13. Inguinal Hernias-wear scrotal support for 48 hours 14. Abdominal Hernias-if sent home with abdominal binder, wear for the first 2 weeks (may remove to shower or at night to sleep). Revised November 2018 Patient Instructions: Opioid Safety (DC) Patient Language: Polish Stand Alone Forms: General Discharge Information Follow-up/Referrals: Jesus Mccloud DO [Physician] - 2 Weeks Discharge Medications: New hydrocodone-acetaminophen 5-325 mg tablet 1 tablet PO Q4H PRN (Reason: pain) Qty: 10 0RF Continued magnesium oxide 400 mg (241.3 mg magnesium) tablet 400 mg PO DAILY duloxetine [Cymbalta] 60 mg capsule,delayed release(DR/EC) 60 mg PO DAILY Qty: 90 3RF Rx Instructions: take daily with the 30mg capsule to equal 90mg duloxetine [Cymbalta] 30 mg capsule,delayed release(DR/EC) 30 mg PO DAILY Qty: 90 3RF Rx Instructions: take with the 60mg cap daily to equal 90 mg meloxicam 7.5 mg tablet 7.5 mg PO DAILY PRN (Reason: pain) Qty: 90 3RF aspirin [Sarah Chewable Aspirin] 81 mg tablet,chewable 81 mg PO DAILY ascorbic acid (vitamin C) 1,000 mg tablet 2 g PO DAILY ergocalciferol (vitamin D2) 50 mcg (2,000 unit) tablet 50 mcg PO WEEKLY Rx Instructions: Patient takes 3 weeks of the month Daily Multivitamin 1 tab-cap PO DAILY Daily Probiotic 2.5 billion cell Capsule 1 cap PO DAILY calcium carbonate [Calcium 600] 600 mg calcium (1,500 mg) Tablet 1 mg PO DAILY metoprolol tartrate 25 mg tablet See Rx Instructions .ROUTE .COMPLEX Qty: 90 4RF Dose Instruction: TAKE 1/2 TABLET BY MOUTH TWICE DAILY Rx Instructions: TAKE 1/2 TABLET BY MOUTH TWICE DAILY Date of admission: 11/28/24 16:01 Primary Care Provider: Renea Maciel Admitting Provider: Jesus Mccloud Attending physician on admission: Jesus Mccloud Condition: Improved
== END 2024-11-30 11:30 | disposition home or self-care (01) ==
LOC: ANHED 16:30 → ANH3MEDSUR 17:52
PROVIDERS: Emergency Medicine; Nurse Practitioner Family; Admitting Provider Surgery; Emergency Provider Preventive Medicine Aerospace Medicine; PCP Nurse Practitioner Family; Visit Provider Surgery
PROC: 0DTJ4ZZ Resection of Appendix, Percutaneous Endoscopic Approach (ICD-10-PCS; CPT 44970; principal; 2024-11-29 14:00)
DX: K35.32 Acute appendicitis with perforation, localized peritonitis, and gangrene, without abscess (principal); I47.10 Supraventricular tachycardia, unspecified; M06.042 Rheumatoid arthritis without rheumatoid factor, left hand; M06.041 Rheumatoid arthritis without rheumatoid factor, right hand; F40.240 Claustrophobia; F32.A Depression, unspecified; F41.9 Anxiety disorder, unspecified; M81.0 Age-related osteoporosis without current pathological fracture; K21.9 Gastro-esophageal reflux disease without esophagitis; Z79.82 Long term (current) use of aspirin; Z79.899 Other long term (current) drug therapy; Z87.891 Personal history of nicotine dependence; Z98.1 Arthrodesis status
CPT/HCPCS: 44970; 36415; 80048; 81003; 85025; 85027; 85610; 85730; 88304; 96361; 96365; 96375; 96376; 99285; A9270; G0378; J1100; J1885; J2003; J2250; J2270; J2405; J2543; J2704; J3010; J7030; J7120

== ENCOUNTER 2024-12-29 08:15 | Emergency (ER) | payer OTHER, BC, SELFPAY ==
--- NOTE | ~2024-12-29 | XR_ITS ---
XR humerus RT, XR shoulder RT min 2V 12/29/2024 09:21 Indication: Right shoulder and arm pain after lifting injury Procedure: 2 views right humerus for right shoulder Comparison: No prior studies for comparison. Findings: No fracture, subluxation or dislocation. There is mild glenohumeral joint osteoarthritis. N o soft tissue abnormality. No foreign bodies. Small loose body inferior to the right glenohumeral christiana nt, likely related to remote trauma or degenerative change. 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 Reviewed, dictated and finalized at location A. 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
--- OUTSIDE RECORDS SUMMARY | 2024-12-29 08:20 | XMS_ITS | Clinical Summary ---
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
--- OUTSIDE RECORDS SUMMARY | 2024-12-29 08:20 | XMS_ITS | Referral Summary ---
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
--- OUTSIDE RECORDS SUMMARY | 2024-12-29 08:20 | XMS_ITS | Patient Health Record ---
Author Organization [facility] Address [address] [place] [address] Care Team Providers Care Almond Roaster Name Role Phone RaheemRenea Primary Care Provider UnavailXIMENA Hernandez Unavailable [phone] Allergies No Known Allergies Reason For Referral No Information Medications Medication SIG (Take, Route, Frequency, Duration) Notes Start Date End Date Status Vitamin C Active Turmeric Not-Taking - Active Metoprolol Succinate 25 MG 1 capsule Orally Once a day Active Cymbalta 60 MG 1 capsule Orally Onc e a day Active Biotin Not-Taking Probiotic Active Social History Tobacco Use: Social History Observation Description Date Details (start date - stop date) Never Smoker NA - NA Tobacco Use/Smoking Question Answer Notes Are you a nonsmoker Additional Findings: Tobacco Non-User Current no n-smoker Problems Problem Type SNOMED Code ICD Code Onset Dates Problem Status W/U Status Risk Notes Problem Pain co-occurrent and due to varicose veins of bilateral legs ([id number]) Varicose veins of bilateral lower extremities with pain (I83.813) Active confirmed Vital Signs Heart Rate 68 /min 01/03/2024 Blood pressure diastolic 68 mm Hg 01/03/2024 Height 64 in 01/03/2024 Blood pressure systolic 98 mm Hg 01/03/2024 Weight 162.4 lbs 01/03/2024 BMI 27.87 kg/m2 01/03/2024 Encounters Encounter Location Date Provider Diagnosis [address] [id number] 04/03/2024 XIMENA GAMBLE [address] [address] 01/03/2024 XIMENA GAMBLE Pain in leg, unspecified M79.606 and Varicose veins of bilateral lower extremities with pain I83.813 [address] [place], [place] [id number] 03/31/2024 XIMENA GAMBLE Assessments Encounter Date Diagnosis (ICD Code) Assessment Notes Treatment Notes Treatment Clinical Notes Section Notes 01/03/2024 Pain in leg, unspecified (ICD-10 - M79.606) 01/03/2024 Varicose veins of bilateral lower extremities with pain (ICD-10 - I83.813) Has superficial thrombo on the left leg-hemathoma drained with 18 g needle,no issues Plan Of Treatment No Information Insurance Providers Payer Name Payer Address Payer Phone Subscriber Number Group Number Insured Name Patient Relationship to Insured Coverage Start Date Coverage End Date [facility] [address] [place], [place] [id number] Meredith Anderson Self - patient is the insured Medical (General) History Medical History History ICD Code Arthritis varicose veins
--- OUTSIDE RECORDS SUMMARY | 2024-12-29 08:20 | XMS_ITS | Clinical Summary ---
Author Organization [facility] [employer] Address [address] [place] [address] Care Team Providers Care Account Adjuster Name Role Phone Good White MD Primary Care Provider [phone] Source Comments [facility] [employer],non-owned Affiliates and Associated Physician Practices is amultiple site organization consisting of ambulatory clinics and hospital sitesin [place], [place], [place]. This disclosure is being madepursuant to the Care Everywhere program and may not contain all information available regarding this patient. Last updated 18.[facility] [employer] Allergies No known active allergies Medications * Be aware that medications may not be up to date on this document. Alwaysverify current medications with the patient. Multi-Day TABS Take 1 (one) tablet by mouth once daily Active aspirin (ASPIRIN) 81 MG tablet Take 1 (one) tablet by mouth once daily Active Ascorbic Acid (VITAMIN C PO) Activ e Calcium Carbonate (CALCIUM 600 PO) Active DULoxetine (Cymbalta) 60 MG capsule Take 1 (one) capsule by mouth once daily 4 Active vitamin D, ergocalciferol , (Drisdol) 1.25 MG (09808 UT) capsule Take 1 (one) capsule by mouth every 7 days Active metoprolol tartrate IR (Lopressor) 25 MG tablet 1 (one) tablet once daily 4 Active meloxicam (Mobic) 7.5 MG tablet Take 1 (one) tablet by mouth as needed 4 Active acetaminophen (Tylenol) 500 MG capsule Take 2 (two) capsules by mouth every 8 hours 90 capsule 4 Active Additional Information Patient not taking.Reason: Other (not taking), Reported on 12/15/2024 hydroxychloroq uine (Plaquenil) 200 MG tablet Take 1 (one) tablet by mouth once daily Active magnesium oxide (Mag-Ox) 400 MG tablet Take 1 (one) tablet by mouth 2 times daily after meals Active DULoxetine (Cymbalta) 30 MG capsule Take 1 (one) capsule by mouth once daily 5 Active clobetasol (Temovate) 0.05 % creamIndicatio ns:Nail dystrophy Apply to affected nail daily. 30 days supply. 60 g 2 5 Active ketoconazole (Nizoral) 2 % creamIndicatio ns:Nail dystrophy Apply to affected nail daily. 30 days supply. 60 g 2 5 Active Probiotic Product (PROBIOTIC PO) 12/16/19 25 Discontin ued(List Clean-Up) terbinafine (LamISIL) 250 MG tablet Take 1 (one) tablet by mouth once daily 4 12/16/19 25 Discontin ued(List Clean-Up) oxyCODONE, immediate release, (Roxicodone) 5 MG tabletIndicati ons:Cervical myelopathy (HCC) Take 1 (one) tablet by mouth every 6 hours as needed for Pain 42 tablet 4 12/16/19 25 Discontin ued(List Clean-Up) cyclobenzaprin e (Flexeril) 5 MG tablet Take 1 (one) tablet by mouth 3 times daily as needed 30 tablet 4 12/16/19 25 Discontin ued(List Clean-Up) docusate sodium (Colace) 100 MG capsule Take 1 (one) capsule by mouth once daily 30 capsule 4 12/16/19 25 Discontin ued(List Clean-Up) polyethylene glycol 3350 (Miralax) 17 GM/SCOOP powder Take 17 (seventeen) g by mouth once daily 238 g 4 12/16/19 25 Discontin ued(List Clean-Up) Active Problems Problem Noted Date Diagnosed Date S/P cervical spinal fusion 05/16/2024 Cervical myelopathy 04/18/2024 Hyperlipidemia, mixed 03/07/2021 History of PSVT (paroxysmal supraventricular tac hycardia) 06/15/2017 Vitamin D deficiency 10/17/2014 Overview (12/15/2024): Vitamin D deficiency Paroxysmal atrial fibrillation 10/17/2014 Overview (12/15/2024): PAF (paroxysmal atrial fibrillation) Atopic rhinitis 10/17/2014 Overview (12/15/2024): Allergic rhinitis Pain in left foot 05/24/2008 Encounters Date Type Department Care Team Description 12/22/2024 Results Follow-Up [facility] - Dermatology [address] [place] [phone] Kathie Moncada MD 12/15/2024 3:00 PM CDT Office Visit [facility] - Dermatology [address] [place] [address] [phone] Kathie Moncada MD Nail dystrophy (Primary Dx); Onychauxis; Neoplasm of uncertain behavior of skin 12/15/2024 1:30 PM CDT Office Visit [facility] - Infectious Disease [address] [place] [address] [phone] Timo Castellon MD Onychomycosis (Primary Dx) 12/15/2024 Travel 11/23/2024 Telephone [facility] - Centralized Scheduling Formerly [facility], [address] [place] [phone] None, Physician Establish Care 11/03/2024 10:30 AM CDT Office Visit [facility] - Orthopedics [address] [place] [phone] Javier Rider MD Onychomycosis (Primary Dx) 11/03/2024 10:12 AM CDT - 11/03/2024 11:59 PM CDT Hospital Encounter [facility] [address] [place] [phone] Javier Rider MD Discharge Disposition: Home or Self Care 11/03/2024 10:11 AM CDT Hospital Encounter [facility] [address] [facility] [place] [phone] Javier Rider MD Discharge Disposition: Home or Self Care 11/03/2024 Travel 10/30/2024 Orders Only [facility] - Orthopedics [address] [place] [phone] Javier Rider MD Bilateral hand pain 10/17/2024 12:12 PM CDT - 10/17/2024 11:59 PM CDT Hospital Encounter [facility] [address] [facility] [place] [address] Mark Melo MD Discharge Disposition: Home or Self Care 10/17/2024 12:00 PM CDT Office Visit [facility] - Orthopedics [address] [place] [address], [place] [phone] Mark Melo MD S/P cervical spinal fusion [...] Answer Date Recorded Patient Health Questionnaire-2 Score 0 12/15/2024 [facility] [place] of Occupat ional Health - Occupational Stress [...] place to sleep or slept in a penitentiary (including now)? 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 Gender Identity Not on file Sexual Orientation Not on file Last Filed Vital Signs Vital Sign Reading Time Taken Comments Blood Pressure 117/68 12/15/2024 1:29 PM CDT Pulse 65 12/15/2024 1:29 PM CDT Temperature 36.3 C (97.3 F) 12/15/2024 1:29 PM CDT Respiratory Rate 14 05/05/2024 7:58 AM CDT Oxygen Saturation 93% 12/15/2024 1:29 PM CDT Inhaled Oxygen Concentration - - Weight 73.8 kg (162 lb 12.8 oz) 12/15/2024 1:29 PM CDT Height 160 cm (5' 3) 12/15/2024 1:29 PM CDT Body Mass Index 28.84 12/15/2024 1:29 PM CDT Plan of Treatment Upcoming Encounters Date Type Department Care Team (Late st Contact Info) Description 04/24/2025 11:30 AM CDT Office Visit [facility] - Orthopedics [address] [facility], [place] [address] Mark Melo MD [address] [place] [address] Health Maintenance Due Date Last Done Comments [...] 2012 COVID-19 VACCINE (1 - season) 2024 INFLUENZA VACCINE (Season Ended) 2025 SCREENING FOR DIABETES 11/21/2027 , 11/20/2024, 10/23/2024, Additional history exists LIPID TESTING 10/23/2029 10/23/2024, 081 08/2023, 08/09/2023 Respiratory Syncytial Virus (RSV) Vaccine Pt: or over 60 yrs (1 - 1-dose 75+ series) 2037 DEPRESSION SCREENING Completed 12/15/2024, 02/09/20 24 HEPATITIS B VACCINE Aged Out No longe [...] interventions Rest Medical Devices Implanted Type Area Psychiatric Clinical Nurse Specialist Device Identifier Shelf Expiration Date Model / Serial / Lot 3.5mm X 16mm Screw Implanted:Qty: 2 on 05/01/2024 by Mark Melo MD at [facility] N/A: Spine [id number] / / 3.5mm X 14mm Screw Implanted:Qty: 6 on 05/01/2024 by Mark Melo MD at [facility] N/A: Spine [id number] / / 3.5mm X 24mm Screw Implanted:Qty: 2 on 05/01/2024 by Mark Melo MD at [facility] N/A: Spine [id number] / / 4.5mm X 24mm Screw Implanted:Qty: 2 on 05/01/2024 by Mark Melo MD at [facility] N/A: Spine [id number] / / Caps Implanted:Qty: 12 on 05/01/2024 by Mark Melo MD at [facility] N/A: Spine [id number] / / 80mm Layo Implanted:Qty: 2 on 05/01/2024 by Mark Melo MD at [facility] N/A: Spine [id number] / / Gft Bone Pliaflix Prm 30cc Implanted:Qty: 1 on 05/01/2024 by Mark Melo MD at [facility] N/A: Spine [employer] [id number] / / Procedures Procedure Name Priority Date/Time Associated Diagnosis Comments ND TANGNTL BX SKIN SINGLE LES Routine 12/15/2024 4:07 PM CDT Nail dystrophy Neoplasm of uncertain behavior of skin DERMATOPATHOLOGY Routine 12/15/2024 3:37 PM CDT Nail dystrophy Neoplasm of uncertain behavior of skin XR HAND RIGHT 3VW OR MORE Routine 11/03/2024 10:25 AM CDT Bilateral hand pain XR HAND LEFT 3VW OR MORE Routine 025 10:25 AM CDT Bilateral hand pain XR CERVICAL SPINE 2 OR 3VW Routine 10/17/2024 12:20 PM CDT S/P cervical spinal fusion BASIC METABOLIC PANEL (CALCIUM TOTAL) AM Draw 05/05/2024 1:36 AM CDT from Last 3 Months or Most Recently Relevant to Health Maintenance Results * ND TANGNTL BX SKIN SINGLE LES (12/15/2024 4:07 PM CDT) Narrative Kathie Moncada MD - 12/15/2024 4:07 PM CDT Kathie Moncada MD 12/25/2024 7:38 PM Risks, benefits and alternatives to shave biopsy were discussed with the patient. Verbal consent was obtained. Encounter Diagnoses Name Primary? 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 Specimen(s) placed in a patient labeled container and sent to [facility] Dermatopathology. Patient agrees to phone call for results and message if not available. Edwin Srinivasan MD Kathie Moncada MD PROCEDURE/MINOR SURGIC AL ORDERABLES Final Result * DERMATOPATHOLOGY (12/15/2024 3:37 PM CDT) Case Report Dermatopathology Report Case: [id number] Authorizing Provider: Kathie Moncada, Collected: 12/15/2024 03:37 PM Ordering Location: [facility] - Received: 12/15/2024 03:38 PM Dermatology Pathologist: Kathie Moncada MD Specimens: A) - Skin, left parietal scalp B) - Skin, right 1st fingernail C) - Skin, right 1st toe nail 4:47 PM T DERMATOPATHOLOGY LABORATORY Final Diagnosis Specimen A. 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 SKIN, right 1st fingernail: COMPACT KERATIN CONSISTENT WITH NAIL PLATE (L60.8) Specimen C. SKIN, right 1st toe nail: COMPACT KERATIN CONSISTENT WITH NAIL PLATE (L60.8) 4:47 PM T DERMATOPATHOLOGY LABORATORY at 1647 CDT Clinical History A. R/O BCC B. Favor 2/2 trauma R/O onychomycosis vs. Psoriasis vs. Yeast C. R/O Onychomycosis vs. Psoriasis vs. Other 5 4:47 PM CDT DERMATOPATHOLOGY LABORATORY Gross Description Specimen A: Received is one formalin filled container labeled with the patient's name and designated left parietal scalp. The specimen consists of a shave biopsy measuring 5x5x3 mm. Jar 0. Specimen B: Received is one formalin filled container labeled with the patient's name and designated right 1st fingernail. The specimen consists of a nail clipping measuring 5x1x1 mm. Specimen C: Received is one formalin filled container labeled with the patient's name and designated right 1st toe nail. The specimen consists of a nail clipping measuring 7x3x1 mm. 4:47 PM T DERMATOPATHOLOGY LABORATORY Microscopic Description Specimen A. SKIN, left parietal scalp: There is a cystic epidermal invagination extending into the dermis lined by a columnar epithelium. Papillary projections with a similar lining extend into the lumen. The base of the lesion is not visualized. COMMENT: Given the lesion is broadly transected at the base, conservative re-excision is recommended for complete removal. This case was also reviewed by Dr. Suyapa Fitch who agrees with the diagnosis. Specimen B. SKIN, right 1st fingernail: Sections show nail plate. Periodic acid-Louann (PAS) stained sections do not highlight fungal organisms. Specimen C. SKIN, right 1st toe nail: Sections show nail plate. Periodic acid-Louann (PAS) stained sections do not highlight fungal organisms. 4:47 PM T DERMATOPATHOLOGY LABORATORY Disclaimer An external and internal positive and negative controls are appropriate for the histochemical, immunohistochemical and immunofluorescence stain(s) in this case (if any), except where stated explicitly. The performance characteristics of the stain(s) cited in this report were developed and its performance characteristic determined by the Dermatopathology Laboratory at [facility], directed by Dr. Lori Arias. These tests need not be, and therefore are not, approved by the [place] Food and Drug Administration. The tests are used for clinical purposes. Billing Codes Specimen Charges Stain Charges 22637 91814 96757 1 1 1 64056 95018 1 1 4:47 PM CDT DERMATOPATHOLOGY LABORATORY Embedded Images 4:47 PM CDT DERMATOPATHOLOGY LABORATORY Pathology/Cytology TISSUE SPECIMEN FROM SKIN / Unknown Collection / Unknown 12/15/2024 3:37 PM CDT 12/15/2024 3:38 PM CDT Miscellaneous samples (specimen) TISSUE SPECIMEN FROM SKIN / Unknown 12/15/2024 3:37 PM CDT 12/15/2024 3:38 PM CDT Miscellaneous samples (specimen) TISSUE SPECIMEN FROM SKIN / Unknown 12/15/2024 3:37 PM CDT 12/15/2024 3:38 PM CDT Kathie Moncada MD LAB - PATHOLOGY/CYTOLO GY ORDERABLES Final Result DERMATOPATHOLOGY LABORATORY [facility] Department of Dermatology [address], [address] [phone] * XR Hand Right 3Vw or More [...] Garcia Smith MD on 11/03/2024 12:54 PM us Javier Rider MD DIAGNOSTIC IMAGING ORDERABLES F [...] 7 - 26 mg/dL 05/05/2024 2:33 AM [facility] Creatinine 0.56 0.56 - 0.96 mg/dL 05/05/2024 2:33 AM [facility] Sodium 138 136 - 145 mmol/L 05/05/2024 2:33 AM [facility] Potassium 3.5 3.5 - 4.5 mmol/L 05/05/2024 2:33 AM [facility] Chloride 101 98 - 107 mmol/L 05/05/2024 2:33 AM [facility] CO2 28 22 - 29 mmol/L 05/05/2024 2:33 AM [facility] Glucose 111 70 - 115 mg/dL 05/05/2024 2:33 AM [facility] Calcium 8.9 8.4 - 10.2 mg/dL 05/05/2024 2:33 AM [facility] Anion Gap 9 6 - 16 05/05/2024 2:33 AM [facility] BUN/Creatinine Ratio 21 7 - 23 05/05/2024 2:33 AM [facility] Osmolality Calculated 286 275 - 295 mOsm/kg 05/05/2024 2:33 AM [facility] eGFR by CKD-EPI >90 >=90 mL/min/1.7 3 m2 05/05/2024 2:33 AM [facility] Blood BLOOD SPECIMEN / Unknown Lab Venipuncture / Unknown 05/05/2024 1:36 AM CDT 05/05/2024 2:09 AM CDT us Mark Melo MD LAB - CHEMISTRY ORDERABLES Final Result [facility] [address] [place], [place] [phone], [facility] [phone] from Last 3 Months or Most Recently Relevant to Health Maintenance Insurance [employer] [facility] Advance Directives * Full Code (Latest Code Status on File) Date Activated Date Inactivated Comments 05/01/2024 12:04 PM 05/05/2024 12:42 PM Care Teams Account Adjuster Relationship Specialty Start Date End Date Good White MD [address] [place] [address] [phone] PCP - General Family Medicine 03/10/24
--- OUTSIDE RECORDS SUMMARY | 2024-12-29 08:20 | XMS_ITS | Encounter Summary ---
Author Organization [facility] Address [address] [facility] [place] [address] Care Team Providers Care Customer Retention Representative Name Role Phone Good White MD Primary Care Provider [phone] Encounter Details Date Type Department Care Team (Late st Contact Info) Description 12/22/2024 Results Follow-Up [facility] - Dermatology [address] [place] [address], [facility] [place] [address] Kathie Moncada MD [address] [place] [address] [address] [place] [address] Social History Tobacco Use Types Packs/Day Years Used Date Smoking Tobacco: Former Cigarettes 1 25 1 - 05/22/2001 Smokeless Tobacco: Never Alcohol Use Standard Drinks/Week Comments Not Currently [...] Recorded Patient Health Questionnaire-2 Score 0 12/15/2024 [place] of Occupat ional Health - Occupational Stress [...] place to sleep or slept in a intermediate (including now)? 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 Answer Date of Assessment Author No 05/01/2024 6:12 PM CDT Kike Johnson RN * Is person blind or have serious difficulty seeing? Answer Date of Assessment Author No 05/01/2024 6:12 PM Kike Durbin RN * Does person have serious difficulty walking/climbing stairs? Answer Date of Assessment Author No 05/01/2024 6:12 PM Kike Durbin RN * Does person have difficulty dressing/bathing? Answer Date of Assessment Author No 05/01/2024 6:12 PM CDT Kike Johnson RN * Does person have difficulty doing errands alone? Answer Date of Assessment Author No 05/01/2024 6:12 PM CDT Kike Johnson RN documented as of this encounter Mental Status * Does person have difficulty concentrating/remembering/making decisions? Answer Entry Date Author No 05/01/2024 6:12 PM CDT Kike Johnson RN documented in this encounter Plan of Treatment Upcoming Encounters Date Type Department Care Team (Late st Contact Info) Description 04/24/2025 11:30 AM CDT Office Visit [facility] - Orthopedics [address] [place] [address], [facility], [facility] [place] [address] Mark Melo MD [address] [place] [phone] documented as of this encounter Goals Goal Patient Goal Type Associated Problems Recent Progress Patient-Stated? Author PAIN General No Alaina Cordova RN Note: Expected end date: 11/23/2024 Patient's pain/discomfort is manageable. Interventions: Use non-pharmacological pain managment interventions Rest documented as of this encounter Visit Diagnoses Not on filedocumented in this encounter Care Teams Customer Retention Representative Relationship Specialty Start Date End Date Good White MD [address] [place] [phone] PCP - General Family Medicine 03/10/24 documented as of this encounter
[2024-12-29 08:21] VITALS: BP 123/93; PULSE 85; RESP 16; TEMP 36.4; O2SAT 100
--- OUTSIDE RECORDS SUMMARY | 2024-12-29 08:21 | XMS_ITS ---
Author Organization [facility] Address [address] [facility] [address] [place] [address] Care Team Providers Care Electronic Test Technician Name Role Phone Renea Maciel Primary Care Provider XIMENA Mercer Unavailable [phone] REASON FOR VISIT 3 month f/u Encounters Encounter Location Date Provider Diagnosis [address] [phone] 04/03/2024 XIMENA GAMBLE Plan Of Treatment No Information Progress Notes * Meredith ANDERSON LDOB:[birth year] (64 yo F)Acc No.[id number]:04/03/2024 Vascular f/u Patient: Meredith RODRIGUEZ Provider: Lotus Gamble MD :1960 A ge:63 Y S ex:Female Date:04/03/2024 Address:[address] [place], [place] [phone] Pcp:Renea Maciel Subjective: * Chief Complaints: * 1 . 3 month f/u. * Medical History: Objective: * Vitals: Assessment: Plan: * Treatment: * * Electronic signature of MOISES GAMBLE MD on 12/29/2024 at 08:20 AM CDT Sign off status: Pending * Provider: Lotus Gamble MD Date: 0 04/03/2024 Generated for Seng valerio/Santy/eTaaliyahsmitting on: 12/29/2024 08:20 AM CDT
--- OUTSIDE RECORDS SUMMARY | 2024-12-29 08:21 | XMS_ITS | Encounter Summary ---
Author Organization [facility] Address [address] [facility] [address] [place] [address] Care Team Providers Care Radar Engineer Name Role Phone Lauren Quiroz MD Primary Care Provider [phone] Zora Nixon DO Primary Care Provider + Patel Osborne MD Primary Care Provider [phone] Renea Maciel NP Primary Care Provider [phone] Encounter Details Date Type Department Care Team (Late st Contact Info) Description 08/24/2016 Orders Only [facility] ProviderAnusha MD [address] [place] [phone] Social History Tobacco Use Types Packs/Day Years Used Date Smoking Tobacco: Former Alcohol Use Standard Drinks/Week Comments Yes 0 (1 standard drink = 0.6 oz pur e alcohol) Comments Unknown Sex and Gender Information Value Date Recorded Sex Assigned at Not on file 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
--- NOTE | 2024-12-29 08:32 | PC.NURSE ---
Dr. Silverio at bedside assessing pt.
[2024-12-29] MEDS: HYDROcodone/acetaminophen (*CRX) 5-325 MG TABLET 1 TAB PO (08:36)
--- NOTE | 2024-12-29 08:46 | ED.GENADULT ---
HPI - General Adult General Chief complaint: Extremity Injury, Upper Stated complaint: R arm pain after injury yesterday Time Seen by Provider: 12/29/24 08:23 History of Present Illness HPI narrative: Patient is a 64-year-old female who presents ER with right arm pain. Patient was at work when she was picking a box up off of the palate and felt a pop in her upper right arm. She had sudden onset pain and has had difficulty using her arm since then due to discomfort with range of motion. Specifically she has pain with flexion extension at the elbow. No numbness or tingling. Pain radiates towards the wrist. Related Data Home Medications ?Medication ?Instructions ?Recorded ?Confirmed ?Last Taken ?Type aspirin 81 mg chewable tablet 81 mg PO DAILY 12/08/19 12/15/24 11/27/24 History (Sarah Chewable Low Dose Aspirin) Lactobacillus 1 cap PO DAILY 01/31/20 12/15/24 11/27/24 History acidophilus-Bifidobac.animalis 2.5 billion cell capsule (Daily Probiotic) calcium carbonate (Calcium 600) 1 mg PO DAILY 01/31/20 12/15/24 11/27/24 History ascorbic acid (vitamin C) 1,000 mg 2 g PO DAILY 09/19/20 12/15/24 11/27/24 History tablet ergocalciferol (vitamin D2) 50 mcg 50 mcg PO WEEKLY 09/19/20 12/15/24 11/27/24 History (2,000 unit) tablet Daily Multivitamin 1 tab-cap PO DAILY 07/03/24 12/15/24 11/27/24 History magnesium oxide 400 mg (241.3 mg 400 mg PO DAILY 09/04/24 12/15/24 11/27/24 History magnesium) tablet Allergies Allergy/AdvReac Type Severity Reaction Status Date / Time venom-wasp Allergy Severe Hives Verified 12/29/24 08:30 Review of Systems Constitutional: Constitutional: Reports no additional constitutional complaints Musculoskeletal: Musculoskeletal: Reports no additional musculoskeletal complaints Integumentary/Breasts: Skin/Breast: Reports system reviewed and no additional complaints, except as docu Neurologic: Reports system reviewed and no additional complaints, except as documented [facility] Past Medical History Medical History (Updated 12/29/24 @ 10:11 by Chidi Silverio MD) Claustrophobia Seronegative rheumatoid arthritis of both hands Depression Osteoporosis Anxiety SVT (supraventricular tachycardia) GERD (gastroesophageal reflux disease) Surgical History Surgical History (Updated 12/15/24 @ 10:24 by Simran Zimmerman MA) History of laparoscopic appendectomy 11/29/[address] Baker History of tubal ligation History of carpal tunnel release S/P cervical spinal fusion H/O foot surgery Family History Family History Mother Family history of thyroid disease Carcinoma of colon Grandparent Family history of psoriasis Family history of malignant neoplasm Family history of congestive heart failure Father Family history of lung cancer Family history of malignant neoplasm Other Family history of cardiovascular disease Hypertension Social History Social History Smoking packs per day: 0.5 Smoking cigarettes per day: 10.0 Years smoked: 15 Smoking pack-years: 7.50 Smoking status: Former smoker Tobacco type: cigarettes Second hand tobacco smoke exposure: No Smoking end date: 07/26/98 Alcohol intake: never Substance use: never Substance use type: does not use Do You Feel Safe in your Home?: Yes Lack of Transportation: No Lack of Food: Never True Current Housing: I Have Housing Concerned About Future Housing: No Difficulty Paying Gas/Electric Bills: No Difficulty Paying for Meds: No Currently Unemployed: No Education: High School Diploma/GED Difficulty w/ Childcare or Family Care: No Living arrangements: with family Occupation/Education: retired Gender identity (if verbalized by the patient): Female Spiritual care concerns: No Agree to blood products: Yes Exam Narrative: GENERAL: Well-appearing, well-nourished, and in no acute distress. HEAD: Normocephalic, atraumatic. ENT: Mucous membranes moist. HEART: Regular rate and rhythm. Normal peripheral pulses. EXTREMITIES: Normal range of motion. No edema. Proximal humerus discomfort over the head of the biceps, right-sided. Pain with flexion extension at the elbow as well as with abduction. SKIN: Warm, dry, no rash. NEURO: Alert and oriented x3. PSYCH: Normal mood and affect. Course Course Emergency Course: High level of suspicion for biceps tendon rupture. Sling for comfort. Pain medication for home. Discussed with Orthopedic surgery patient will need follow-up. Vital Signs Vital signs: Vital Signs Temperature 97.6 F 12/29/24 08:21 Pulse Rate 85 12/29/24 08:21 Respiratory Rate 16 12/29/24 08:21 Blood Pressure 123/93 H 12/29/24 08:21 Pulse Oximetry 100 12/29/24 08:21 Oxygen Delivery Room Air 12/29/24 08:21 Temperature 97.6 F 12/29/24 08:21 Pulse Rate 85 12/29/24 08:21 Respiratory Rate 16 12/29/24 08:21 Blood Pressure 123/93 H 12/29/24 08:21 Pulse Oximetry 100 12/29/24 08:21 Oxygen Delivery Room Air 12/29/24 08:21 Medical Decision Making Vital Signs Vital Signs: Vital Signs Temperature 97.6 F 12/29/24 08:21 Pulse Rate 85 12/29/24 08:21 Respiratory Rate 16 12/29/24 08:21 Blood Pressure 123/93 H 12/29/24 08:21 Pulse Oximetry 100 12/29/24 08:21 Oxygen Delivery Room Air 12/29/24 08:21 Temperature 97.6 F 12/29/24 08:21 Pulse Rate 85 12/29/24 08:21 Respiratory Rate 16 12/29/24 08:21 Blood Pressure 123/93 H 12/29/24 08:21 Pulse Oximetry 100 12/29/24 08:21 Oxygen Delivery Room Air 12/29/24 08:21 Discharge Plan Discharge Clinical Impression: Rupture of proximal biceps tendon Patient Disposition: Home Condition: Stable Instructions: How to Use a Sling (ED), Tendon Rupture (ED) Additional Instructions: Follow-up with orthopedic surgery for further treatment evaluation. You should not be lifting anything heavy and will have work limitation. Return ER if you suffered a new injury, you have chest pain shortness of breath, or you have additional concerns. Patient Language: Croatian Prescriptions: New hydrocodone-acetaminophen 5-325 mg tablet 1 tablet PO Q6H PRN (Reason: pain) Qty: 12 0RF No Action magnesium oxide 400 mg (241.3 mg magnesium) tablet 400 mg PO DAILY duloxetine [Cymbalta] 60 mg capsule,delayed release(DR/EC) 60 mg PO DAILY Qty: 90 3RF Rx Instructions: take daily with the 30mg capsule to equal 90mg duloxetine [Cymbalta] 30 mg capsule,delayed release(DR/EC) 30 mg PO DAILY Qty: 90 3RF Rx Instructions: take with the 60mg cap daily to equal 90 mg meloxicam 7.5 mg tablet 7.5 mg PO DAILY PRN (Reason: pain) Qty: 90 3RF aspirin [Sarah Chewable Aspirin] 81 mg tablet,chewable 81 mg PO DAILY ascorbic acid (vitamin C) 1,000 mg tablet 2 g PO DAILY ergocalciferol (vitamin D2) 50 mcg (2,000 unit) tablet 50 mcg PO WEEKLY Rx Instructions: Patient takes 3 weeks of the month Daily Multivitamin 1 tab-cap PO DAILY Daily Probiotic 2.5 billion cell Capsule 1 cap PO DAILY calcium carbonate [Calcium 600] 600 mg calcium (1,500 mg) Tablet 1 mg PO DAILY metoprolol tartrate 25 mg tablet See Rx Instructions .ROUTE .COMPLEX Qty: 90 4RF Dose Instruction: TAKE 1/2 TABLET BY MOUTH TWICE DAILY Rx Instructions: TAKE 1/2 TABLET BY MOUTH TWICE DAILY Follow-up/Referrals: Renea Maciel FNP-C [Primary Care Provider] - John Adhikari MD [Physician] - 1 Week
--- OUTSIDE RECORDS SUMMARY | 2024-12-29 08:58 | XMS_ITS | Referral Summary ---
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
--- OUTSIDE RECORDS SUMMARY | 2024-12-29 08:58 | XMS_ITS | Clinical Summary ---
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
--- OUTSIDE RECORDS SUMMARY | 2024-12-29 08:58 | XMS_ITS | Clinical Summary ---
Author Organization [facility] Address [address] [place] [address] Care Team Providers Care Renal Nurse Name Role Phone Good White MD Primary Care Provider [phone] Source Comments [facility],non-owned Affiliates and Associated Physician Practices is amultiple site organization consisting of ambulatory clinics and hospital sitesin [place], [place], [place] and [place]. This disclosure is being madepursuant to the Care Everywhere program and may not contain all information available regarding this patient. Last updated 18.[facility] Allergies No known active allergies Medications * [...] vitamin D, ergocalciferol , (Drisdol) 1.25 MG (46144 UT) capsule Take 1 (one) capsule by [...] Department Care Team Description 12/22/2024 Results Follow-Up [facility] - Dermatology [address] [place] [phone] Kathie Moncada MD 12/15/2024 3:00 PM CDT Office Visit [facility] - Dermatology [address] [place] [phone] Kathie Moncada MD Nail dystrophy (Primary Dx); Onychauxis; Neoplasm of uncertain behavior of skin 12/15/2024 1:30 PM CDT Office Visit [facility] - Infectious Disease [address] [place] [phone] Timo Castellon MD Onychomycosis (Primary Dx) 12/15/2024 Travel 11/23/2024 Telephone [facility] - Centralized Scheduling [facility] [place] [phone] None, Physician Establish Care 11/03/2024 10:30 AM CDT Office Visit [facility] - Orthopedics [address] [place] [phone] Javier Rider MD Onychomycosis (Primary Dx) 11/03/2024 10:12 AM CDT - 11/03/2024 11:59 PM CDT Hospital Encounter [facility] [address] [place] [phone] Javier Rider MD Discharge Disposition: Home or Self Care 11/03/2024 10:11 AM CDT Hospital Encounter [facility] [address] [facility] [place] [address] Javier Rider MD Discharge Disposition: Home or Self Care 11/03/2024 Travel 10/30/2024 Orders Only [facility] - Orthopedics [address] [place] [phone] Javier Rider MD Bilateral hand pain 10/17/2024 12:12 PM CDT - 10/17/2024 11:59 PM CDT Hospital Encounter [facility] [address] [facility] [place] [address] Mark Melo MD Discharge Disposition: Home or Self Care 10/17/2024 12:00 PM CDT Office Visit [facility] - Orthopedics [address] [place] [address], [place] [address] Mark Melo MD S/P cervical spinal fusion [...] Recorded Patient Health Questionnaire-2 Score 0 12/15/2024 [facility] [place] of Occupat ional Health - Occupational Stress [...] place to sleep or slept in a correction (including now)? 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 Gender Identity Not on file Sexual [...] Visit [facility] - Orthopedics [address] [facility], [facility] [place] [address] Mark Melo MD [address] [place] [address] Health Maintenance Due Date Last Done Comments [...] interventions Rest Medical Devices Implanted Type Area Rate Manager Device Identifier Shelf Expiration Date Model / Serial / Lot 3.5mm X 16mm Screw Implanted:Qty: 2 on 05/01/2024 by Mark Melo MD at [facility] N/A: Spine [id number] / / 3.5mm X 14mm Screw Implanted:Qty: 6 on 05/01/2024 by Mark Melo MD at [facility] N/A: Spine [id number] / / 3.5mm X 24mm Screw Implanted:Qty: 2 on 05/01/2024 by Mark Melo MD at [facility] N/A: Spine [id number] / / 4.5mm X 24mm Screw Implanted:Qty: 2 on 05/01/2024 by Mark Melo MD at [facility] N/A: Spine [id number] / / Caps Implanted:Qty: 12 on 05/01/2024 by Mark Melo MD at [facility] N/A: Spine [id number] / / 80mm Layo Implanted:Qty: 2 on 05/01/2024 by Mark Melo MD at [facility] N/A: Spine [id number] / / Gft Bone Pliaflix Prm 30cc Implanted:Qty: 1 on 05/01/2024 by Mark Melo MD at [facility] N/A: Spine [employer] [id number] / / Procedures Procedure Name Priority Date/Time Associated Diagnosis Comments NC TANGNTL BX SKIN SINGLE LES Routine 12/15/2024 [...] Recently Relevant to Health Maintenance Results * NC TANGNTL BX SKIN SINGLE LES (12/15/2024 4:07 [...] a patient labeled container and sent to [facility] Dermatopathology. Patient agrees to phone call for results and message if not available. Edwin Srinivasan MD Kathie Moncada MD PROCEDURE/MINOR SURGIC AL ORDERABLES Final Result * DERMATOPATHOLOGY (12/15/2024 3:37 PM CDT) Case Report Dermatopathology Report Case: [id number] Authorizing Provider: Kathie Moncada, Collected: 12/15/2024 03:37 PM Ordering Location: [facility] - Received: 12/15/2024 03:38 PM [...] characteristic determined by the Dermatopathology Laboratory at [facility], directed by Dr. Lori Arias. These tests need not be, and therefore are not, approved by the [place] Food and Drug Administration. The tests are used for clinical purposes. Billing Codes Specimen Charges Stain Charges 65604 04428 57266 1 1 1 51114 10431 1 1 4:47 PM CDT DERMATOPATHOLOGY LABORATORY [...] PATHOLOGY/CYTOLO GY ORDERABLES Final Result DERMATOPATHOLOGY LABORATORY [facility] Department of Dermatology [address], [address] [phone] * XR Hand Right 3Vw or More [...] 7 - 26 mg/dL 05/05/2024 2:33 AM [facility] Creatinine 0.56 0.56 - 0.96 mg/dL 05/05/2024 2:33 AM [facility] Sodium 138 136 - 145 mmol/L 05/05/2024 2:33 AM [facility] Potassium 3.5 3.5 - 4.5 mmol/L 05/05/2024 2:33 AM [facility] Chloride 101 98 - 107 mmol/L 05/05/2024 2:33 AM [facility] CO2 28 22 - 29 mmol/L 05/05/2024 2:33 AM [facility] Glucose 111 70 - 115 mg/dL 05/05/2024 2:33 AM [facility] Calcium 8.9 8.4 - 10.2 mg/dL 05/05/2024 2:33 AM [facility] Anion Gap 9 6 - 16 05/05/2024 2:33 AM [facility] BUN/Creatinine Ratio 21 7 - 23 05/05/2024 2:33 AM [facility] Osmolality Calculated 286 275 - 295 mOsm/kg 05/05/2024 2:33 AM [facility] eGFR by CKD-EPI >90 >=90 mL/min/1.7 3 m2 05/05/2024 2:33 AM [facility] Blood BLOOD SPECIMEN / Unknown Lab Venipuncture / Unknown 05/05/2024 1:36 AM CDT 05/05/2024 2:09 AM CDT us Mark Melo MD LAB - CHEMISTRY ORDERABLES Final Result [facility] [address] [place], [place] [phone], [facility] [phone] from Last 3 Months or Most Recently Relevant to Health Maintenance Insurance [employer] [facility] Advance Directives * Full Code (Latest Code Status on File) Date Activated Date Inactivated Comments 05/01/2024 12:04 PM 05/05/2024 12:42 PM Care Teams Renal Nurse Relationship Specialty Start Date End Date Good White MD [address] [place] [phone] PCP - General Family Medicine 03/10/24
--- OUTSIDE RECORDS SUMMARY | 2024-12-29 08:58 | XMS_ITS | Encounter Summary ---
Author Organization [facility] Address [address] [place] [address] Care Team Providers Care Esthetician Spa Name Role Phone Good White MD Primary Care Provider [phone] Encounter Details Date Type Department Care Team (Late st Contact Info) Description 12/22/2024 Results Follow-Up [facility] - Dermatology [address] [place] [address], [facility] [place] [address] Kathie Moncada MD [address] [place] [address] [address] [place] [address] Social History Tobacco Use Types [...] Recorded Patient Health Questionnaire-2 Score 0 12/15/2024 [place] of Occupat ional Health - Occupational Stress [...] place to sleep or slept in a care home (including now)? 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 Author PAIN General No Alaina Cordova RN Note: Expected end date: 11/23/2024 Patient's pain/discomfort is manageable. Interventions: Use non-pharmacological pain managment interventions Rest documented as of this encounter Visit Diagnoses Not on filedocumented in this encounter Care Teams Esthetician Spa Relationship Specialty Start Date End Date Good White MD [address] [place] [address] [phone] PCP - General Family Medicine 03/10/24 documented as of this encounter
--- OUTSIDE RECORDS SUMMARY | 2024-12-29 08:58 | XMS_ITS | Encounter Summary ---
Author Organization [facility] Address [address] [place] [address] Care Team Providers Care Branch Service Specialist Name Role Phone Lauren Quiroz MD Primary Care Provider [phone] Zora Nixon DO Primary Care Provider + Patel Osborne MD Primary Care Provider [phone] Renea Maciel NP Primary Care Provider [phone] Encounter Details Date Type Department Care Team (Late st Contact Info) Description 08/24/2016 Orders Only [facility] ProviderAnusha MD [address] [place] [phone] Social History Tobacco Use Types Packs/Day Years Used Date Smoking Tobacco: Former Alcohol Use Standard Drinks/Week Comments Yes 0 (1 standard drink = 0.6 oz pur e alcohol) Comments Unknown Sex and Gender Information Value Date Recorded Sex Assigned at Not on file 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
== END 2024-12-29 10:45 | disposition home or self-care (01) ==
PROVIDERS: Emergency Provider Emergency Medicine; PCP Nurse Practitioner Family
DX: S46.211A Strain of muscle, fascia and tendon of other parts of biceps, right arm, initial encounter (principal); M06.042 Rheumatoid arthritis without rheumatoid factor, left hand; M06.041 Rheumatoid arthritis without rheumatoid factor, right hand; M81.0 Age-related osteoporosis without current pathological fracture; K21.9 Gastro-esophageal reflux disease without esophagitis; F41.9 Anxiety disorder, unspecified; F32.A Depression, unspecified; Z98.1 Arthrodesis status; Z87.891 Personal history of nicotine dependence; Z79.82 Long term (current) use of aspirin; M19.011 Primary osteoarthritis, right shoulder; X50.0XXA Overexertion from strenuous movement or load, initial encounter
CPT/HCPCS: 73030; 73060; 99283; A4565; A9270

== ENCOUNTER 2025-07-13 00:38 | Day surgery (SDC) | payer BC, SELFPAY ==
--- OUTSIDE RECORDS SUMMARY | 2025-02-26 04:30 | XMS_ITS ---
Author Organization [facility] Address [address] [place] [address] Care Team Providers Care Svp Research And Strategic Analysis Name Role Phone Raheem BALDWIN, Renea Primary Care Provider U Kathryn Kate [phone] REASON FOR VISIT 3 month f/u RA Encounters Encounter Location Date Provider Diagnosis [facility] [address] [place] [address] 02/26/2025 Kathryn Inman Plan Of Treatment No Information Progress Notes * [place] ANDERSONDOB:1960 (64 yo F)Acc No.[id number]:02/26/2025 Progress Notes Patient: King HERNÁNDEZ [place] Appointment Provider: Arminda INMAN MD :1960 A ge:64 Y S ex:Female Date:02/26/2025 Address:[address] [place], [place] [phone] Pcp:TARA Florian Subjective: * Chief Complaints: * 1 . 3 month f/u RA. * Medical History: Objective: * Vitals: Assessment: Plan: * Treatment: * Billing Information: * Visit Code: * Procedure Codes: * Electronic signature of Kathryn Inman MD on 07/13/2025 at 12:41 AM [employer] ARCHITECT Sign off status: Pending * Appointment Provider: Arminda INMAN MD Date: 0 02/26/2025 Generated for Printi ng/Faxing/eTransmitting on: 1 09/13/2024 12:41 AM [employer] ARCHITECT
[2025-06-27 14:00] VITALS: BMI 27.4
--- OUTSIDE RECORDS SUMMARY | 2025-07-13 00:41 | XMS_ITS | Encounter Summary ---
Author Organization [facility] Address [address] [place] [address] Care Team Providers Care Test And Turn Up Technician Name Role Phone Renea Maciel FILM READER Primary Care Provider [phone] Encounter Details Date Type Department Care Team (Late st Contact Info) Description 05/11/2025 Prep for Procedure [facility] [address] [place] [address] Timo Holloway, DO [address] [place] [address] Social History Tobacco Use Types Packs/Day Years [...] on file documented as of this encounter Results * (ABNORMAL) CBC W/DIFF AUTOMATED (05/16/2025 11:20 AM CDT) WBC 4.93 4.4 - 11.0 x10'3/uL 05/16/2025 11:29 AM CDT [facility] () [facility] RBC 4.25(L) 4.50 - 5.10 x10'6/uL 05/16/2025 11:29 AM CDT [facility] HGB 13.8 12.3 - 15.3 G/DL 05/16/2025 11:29 AM T [facility] HCT 40.2 35.9 - 44.6 % 05/16/2025 11:29 AM [facility] MCV 94.6 80.0 - 96.0 FL 05/16/2025 11:29 AM T [facility] MCH 32.5(H) 25.3 - 30.9 PG 05/16/2025 11:29 AM [facility] MCHC 34.3(H) 31.0 - 34.1 G/DL 05/16/2025 11:29 AM [facility] RDW 12.8 12.4 - 15.1 % 05/16/2025 11:29 AM [facility] PLT 194 151 - 353 x10'3/uL 05/16/2025 11:29 AM [facility] MPV 10.5 9.6 - 12.0 FL 05/16/2025 11:29 AM [facility] RBC MORPHOLOGY NORMAL 05/16/2025 11:29 AM [facility] PLT MORPH. NORMAL 05/16/2025 11:29 AM T [facility] WBC MORPHOLOGY NORMAL 05/16/2025 11:29 AM [facility] LYMPHOCYTES % 29.4 15.8 - 45.0 % 05/16/2025 11:29 AM T [facility] NEUTROPHILS % 54.6 42.1 - 71.9 % 05/16/2025 11:29 AM [facility] MONOCYTES % 7.5 5.7 - 12.5 % 05/16/2025 11:29 AM [facility] EOSINOPHILS 6.9(H) 0.0 - 5.6 % 05/16/2025 11:29 AM CDT [facility] BASOPHILS 1.4(H) 0.0 - 1.3 % 05/16/2025 11:29 AM CDT [facility] ABS. NEUTROPHILS 2.69 1.40 - 6.00 x10'3/uL 05/16/2025 11:29 AM CDT [facility] IMMATURE GRANS % 0.2 0.0 - 0.5 % 05/16/2025 11:29 AM CDT [facility] ABS. LYMPHOCYTES 1.45 0.80 - 4.70 x10'3/uL 05/16/2025 11:29 AM CDT [facility] 05/16/2025 11:2 0 AM CDT us Timo Holloway DO LABORATORY Final Result [facility] [address] [place] [address], [place] [phone] * MRSA SCREENING (05/16/2025 11:19 AM CDT) SPEC DESCRIPTION NASAL 05/16/2025 11:19 AM CDT [facility] SPECIAL REQUESTS NO SPECIAL REQUEST 05/16/2025 11:19 AM CDT [facility] CULTURE RESULT NO METHICILLIN RESISTANT STAPHYLOCOCCUS AUREUS ISOLATED 05/17/2025 10:36 AM CDT [facility] SPECIMEN FROM INTERNAL NOSE / Unknown 05/16/2025 11:19 AM CDT 05/16/2025 11:20 AM CDT us Timo Holloway DO MICROBIOLOGY - GENERAL ORDERABLE S Final Result [facility] [address] [facility] [place] [address], [place] [phone] [facility] [address] [place] [address], [place] [phone] documented in this encounter Visit Diagnoses Diagnosis Pre-op testing- Primary Preoperative examination, unspecified documented in this encounter Care Teams Test And Turn Up Technician Relationship Specialty Start Date End Date Renea Maciel, FILM READER [address] [place] [address] PCP - General Nurse Practitioner Family 02/01/25 documented as of this encounter
--- OUTSIDE RECORDS SUMMARY | 2025-07-13 00:41 | XMS_ITS | Encounter Summary ---
Author Organization [facility] Address [address] [place] [address] Care Team Providers Care Stitch Bonding Machine Drawer In Name Role Phone Lauren Quiroz MD Primary Care Provider [phone] Zora Nixon DO Primary Care Provider + Patel Osborne MD Primary Care Provider [phone] Renea Maciel NP Primary Care Provider [phone] Encounter Details Date Type Department Care Team (Late st Contact Info) Description 08/24/2016 Orders Only [facility] ProviderAnusha MD [address] [place] [address] Social History Tobacco Use Types Packs/Day Years Used Date Smoking Tobacco: Former Alcohol Use Standard Drinks/Week Comments Yes 0 (1 standard drink = 0.6 oz pur e alcohol) Comments Unknown Sex and Gender Information Value Date Recorded Sex Assigned at Not on file 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
--- OUTSIDE RECORDS SUMMARY | 2025-07-13 00:41 | XMS_ITS | Encounter Summary ---
Author Organization [facility] Address [facility] [place] [address] Care Team Providers Care International Banker Name Role Phone None, Provider Primary Care Provider Zora Leone DO Primary Care Provider Renea Naik INDUCTION MACHINE SETTER Primary Care Provider [phone] Encounter Details Date Type Department Care Team (Late st Contact Info) Description 03/13/2021 Abstract [facility], [address] [address] John Guevara MA Social History Tobacco Use [...] in this encounter Results * HEMATOCRIT (03/28/2021) HCT 40.8 03/28/2021 us Doc [facility] LABORATORY Final Result * (ABNORMAL) CREATININE (03/28/2021) CREATININE S/P/B 0.68 0.5 - 1.0 EGFR NON-AFR. AMER. 112(A) <=90 EGFR AFR. AMER. 96(A) <=90 03/28/2021 us Doc [facility] LABORATORY Final Result * BUN (OUTSIDE LAB) (03/28/2021) BUN 18 03/28/2021 us Doc [facility] Abstract LAB-OUTSIDE/ABSTRACTED Final Result * PROTIME (OUTSIDE LAB) (03/17/2021) PROTIME 10.3 INR 1.0 03/17/2021 us Doc [facility] Abstract LAB-OUTSIDE/ABSTRACTED Final Result * CBC (OUTSIDE LAB) (03/17/2021) WBC 4.4 HGB 14.4 HCT 43.0 PLT [...] on filedocumented in this encounter Care Teams International Banker Relationship Specialty Start Date End Date None, Provider, PCP - General 02/21/21 03/25/21 Zora Ruano DO PCP - General FAMILY PRACTICE 03/26/21 01/31/25 Renea Maciel, INDUCTION MACHINE SETTER [address] [place] [address] PCP - General Nurse Practitioner Family 02/01/25 documented as of this encounter
--- OUTSIDE RECORDS SUMMARY | 2025-07-13 00:41 | XMS_ITS | Patient Health Record ---
Author Organization [facility] Address [address] [place] [address] Care Team Providers Care Prepared Foods Team Leader Name Role Phone RaheemRenea Primary Care Provider BiancaXIMENA Hernandez Unavailable [phone] Allergies No Known Allergies Reason For Referral No Information Medications Medication SIG (Take, Route, Frequency, Duration) Notes Start Date End Date Status Vitamin C Active Turmeric Not-Taking /PRN Aspir-81 Active Metoprolol Succinate 25 MG Capsule ER 24 Hour Sprinkle 1 capsule Orally Once a day Active Cymbalta 60 MG Capsule Delayed Release Particles 1 capsule Orally Once a day Active Biotin Not-Taking /PRN Probiotic Active Social History Tobacco Use: Social History Observation Description Date Details (start date - stop date) Never Smoker NA - NA Social History Tobacco Use: Social Info Question Answer Notes Tobacco Use/Smoking Are you a nonsmoker Additional Findings: Tobacco Non-User Current no n-smoker Problems Problem Type SNOMED Code ICD Code Onset Dates Problem Status W/U Status Risk Notes Problem Pain co-occurrent and due to varicose veins of bilateral legs ([id number] 9100) Varicose veins of bilateral lower extremities with pain (I83.813) Active confirmed Plan Of Treatment No Information Insurance Providers Payer Name Payer Address Payer Phone Subscriber Number Group Number Insured Name Patient Relationship to Insured Coverage Start Date Coverage End Date [facility] [address] [place], [place] [id number] Meredith Anderson Self - patient is the insured Medical (General) History Medical History History ICD Code Arthritis varicose veins
--- OUTSIDE RECORDS SUMMARY | 2025-07-13 00:41 | XMS_ITS | Clinical Summary ---
Author Organization [facility] [address] Address [address] [place] [address] Care Team Providers Care Grinder Set Up Operator Thread Name Role Phone Renea Maciel NP Primary Care Provider [phone] Allergies No known active allergies Medications Lactobacillus acidophilus (PROBIOTIC) 10 billion cell capsule take 1 by Oral route once 0 0 5 Active ergocalciferol (VITAMIN D2) 50,000 unit capsule take 1 capsule by ORAL route every week 0 0 5 Active Additional Information Patient taking differently: (No dose reported), oral, Indications: three times monthly, Reported on 04/30/2025 ascorbic acid (vitamin C) 1,000 mg tablet take 1 by Oral route once 0 0 5 Active aspirin (ASPIR-81) 81 mg tablet take 1 tablet by oral route every day 0 0 5 Active calcium carbonate (CALCIUM 500) 1,250 MG (500 mg of elemental calcium) tablet take 1 by Oral route once [address] (CYMBALTA) 30 mg capsule Take 3 capsules (90 mg total) by mouth daily 5 Active magnesium oxide (MAG-OX) 400 mg (241.3 mg elemental magnesium) tabletIndication s:hypomagnesemia Take 1 tablet (400 mg total) by mouth 2 (two) times a day Active metoprolol tartrate (LOPRESSOR) 25 mg immediate release tabletIndication s:Palpitations,P aroxysmal atrial fibrillation (HCC) Take 1 tablet (25 mg total) by mouth 2 (two) times a day 180 tablet 3 Active Active Problems Problem Noted Date Diagnosed Date Preop cardiovascular exam 04/30/2025 Arthritis 06/16/2022 Palpitations 09/16/2021 Atypical chest pain [...] Encounters Date Type Department Care Team Description 04/30/2025 8:15 AM CDT Office Visit [facility] [address] [place] [phone] Vladimir Zavala MD History of PSVT (paroxysmal supraventricular tachycardia) (Primary Dx); Palpitations; Paroxysmal atrial fibrillation (HCC); Atypical chest pain; Preop cardiovascular exam from Last 3 Months Medical History Medical [...] on file 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 Gender Identity Not on file Sexual Orientation Not on file Last Filed Vital Signs Vital Sign Reading Time Taken Comments Blood Pressure 98/60 04/30/2025 8:18 AM CDT Pulse 75 04/30/2025 8:18 AM CDT Temperature - - Respiratory Rate - - Oxygen Saturation 98% 04/30/2025 8:18 AM CDT Inhaled Oxygen Concentration - - Weight 74.4 kg (164 lb) 04/30/2025 8:18 AM CDT Height 170.2 cm (5' 7) 04/30/2025 8:18 AM CDT Body Mass Index 25.69 04/30/2025 8:18 AM CDT Plan of Treatment Health Maintenance Due Date Last Done Comments Breast Cancer Screening-Mammogram 1962 Cervical Cancer Screening 1962 Colon Cancer Screening-Colonoscopy 1962 Depression Screening 1962 Hepatitis C Screening 1962 DTaP/Tdap/Td Vaccine (1 - Tdap) 1973 Hepatitis B Screening 1980 Regular Well Visit/Exam 18-64 1980 Zoster Vaccine (1 of 2) 2012 Influenza Vaccine (#1) 2025 Pneumococcal vaccine <65 Aged Out No longer eligible based on patient's age to complete this topic Insurance [place] [id number] Care Teams Grinder Set Up Operator Thread Relationship Specialty Start Date End Date Renea Maciel MACHINE APPLICATOR CEMENTER PCP - General Family Medicine 08/09/23
--- OUTSIDE RECORDS SUMMARY | 2025-07-13 00:41 | XMS_ITS | Clinical Summary ---
Author Organization [facility] Address [address] [place] [address] Care Team Providers Care Decorating Machine Tender Name Role Phone Good White MD Primary Care Provider [phone] Source Comments [facility],non-owned Affiliates and Associated Physician Practices is amultiple site organization consisting of ambulatory clinics and hospital sitesin [place], [place], [place] and [place]. This disclosure is being madepursuant to the Care Everywhere program and may not contain all information available regarding this patient. Last updated 18.[facility] Allergies No known active allergies Medications * [...] Active vitamin D, ergocalciferol, (Drisdol) 1.25 MG (93340 UT) capsule Take 1 (one) capsule by [...] not taking.Reason: Other (not taking), Reported on 04/24/2025 hydroxychloroqu ine (Plaquenil) 200 MG tablet Take 1 (one) tablet by mouth once daily Active magnesium oxide (Mag-Ox) 400 MG tablet Take 1 (one) tablet by mouth 2 times daily after meals Active DULoxetine (Cymbalta) 30 MG capsule Take 1 (one) capsule by mouth once daily 5 Active clobetasol (Temovate) 0.05 % creamIndication s:Nail dystrophy Apply to affected nail daily. 30 days supply. 60 g 2 5 Active ketoconazole (Nizoral) 2 % creamIndication s:Nail dystrophy Apply to affected nail daily. 30 days supply. 60 g 2 5 Active Active Problems Problem Noted Date Diagnosed [...] Encounters Date Type Department Care Team Description 04/24/2025 11:35 AM CDT - 04/24/2025 11:59 PM CDT Hospital Encounter [facility]STIC [facility] [address] [place] [address] Mark Melo MD Discharge Disposition: Home or Self Care 04/24/2025 11:30 AM CDT Office Visit [facility] - Orth[facility] [address] [place] [phone] Mark Melo MD S/P cervical spinal fusion (Primary Dx) 04/24/2025 Travel 04/23/2025 Orders Only [facility] [address] [place] [address] Mark Melo MD S/P cervical spinal fusion from Last 3 Months Social History Tobacco [...] Recorded Patient Health Questionnaire-2 Score 0 12/15/2024 [facility] [place] of Occupat ional Health - Occupational Stress [...] place to sleep or slept in a prison (including now)? 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 Gender Identity Not on file Sexual Orientation Not on file Last Filed Vital Signs Vital Sign Reading Time Taken Comments Blood Pressure 117/68 12/15/2024 1:29 PM CDT Pulse 65 12/15/2024 1:29 PM CDT Temperature 36.3 C (97.3 F) 12/15/2024 1:29 PM CDT Respiratory Rate 14 05/05/2024 7:58 AM CDT Oxygen Saturation 93% 12/15/2024 1:29 PM CDT Inhaled Oxygen Concentration - - Weight 72.1 kg (159 lb) 04/24/2025 11:48 AM CDT Height 165.1 cm (5' 5) 04/24/2025 11:48 AM CDT Body Mass Index 26.46 04/24/2025 11:48 AM CDT Plan of Treatment Upcoming Encounters Date Type Department Care Team (Late st Contact Info) Description 04/23/2026 11:30 AM CDT Office Visit [facility] [address] [place] [phone] Mark Melo MD [address] [place] [address] Health Maintenance Due Date Last Done Comments COLOGUARD (AGES 45-75) - COLON CA SCREENING 1962 COLON MONITORING 1962 COLONOSCOPY - COLON CA SCREENING 1962 CT COLONOGRAPHY - COLON CA SCREENING 1962 Colorectal Cancer Screening 1962 FIT - COLON CA SCREENING 1962 FLEX SIG - COLON CA SCREENING 1962 LIPID TESTING 1962 MAMMOGRAM 1962 HIV SCREENING 1977 HEPATITIS C SCREENING 09/04/1980 DTAP/TDAP/TD VACCINES (1 - Tdap) 1981 PAP SMEAR 1983 PNEUMOCOCCAL VACCINE 50+ (1 of 1 - PCV) 2012 ZOSTER VACCINE (1 of 2) 2012 COVID-19 VACCINE (1 - 2024- season) 2025 INFLUENZA VACCINE (#1) 2025 SCREENING FOR DIABETES 05/05/2027 , 05/04/2024, 05/03/2024, Additional history exists Respiratory Syncytial Virus (RSV) Vaccine Pt: or over 60 yrs (1 - 1-dose 75+ series) 2037 DEPRESSION SCREENING Completed 12/15/2024, 02/09/20 HEPATITIS B VACCINE Aged Out No longe [...] interventions Rest Medical Devices Implanted Type Area Geothermal Powerplant Mechanic Device Identifier Shelf Expiration Date Model / Serial / Lot 3.5mm X 16mm Screw Implanted:Qty: 2 on 05/01/2024 by Mark Melo MD at [facility] N/A: Spine [id number] / / 3.5mm X 14mm Screw Implanted:Qty: 6 on 05/01/2024 by Mark Melo MD at [facility] N/A: Spine [id number] / / 3.5mm X 24mm Screw Implanted:Qty: 2 on 05/01/2024 by Mark Melo MD at [facility] N/A: Spine [id number] / / 4.5mm X 24mm Screw Implanted:Qty: 2 on 05/01/2024 by Mark Melo MD at [facility] N/A: Spine [id number] / / Caps Implanted:Qty: 12 on 05/01/2024 by Mark Melo MD at [facility] N/A: Spine [id number] / / 80mm Layo Implanted:Qty: 2 on 05/01/2024 by Mark Melo MD at [facility] N/A: Spine [id number] / / Gft Bone Pliaflix Prm 30cc Implanted:Qty: 1 on 05/01/2024 by Mark Melo MD at [facility] N/A: Spine [employer] [id number] / / Procedures Procedure Name Priority Date/Time Associated Diagnosis Comments XR CERVICAL SPINE 2 OR 3VW Routine 04/24/2025 11:43 AM CDT S/P cervical spinal fusion BASIC METABOLIC PANEL (CALCIUM TOTAL) AM Draw 05/05/2024 1:36 AM CDT from Last 3 Months or Most Recently Relevant to Health Maintenance Results * XR Cervical Spine 2 or 3Vw (04/24/2025 11:43 AM CDT) Anatomical Region Laterality Modality Spine Radiographic Cris ging 04/24/2025 12:1 3 PM CDT Impressions 04/24/2025 12:15 PM CDT IMPRESSION: 1.Instrumented spinal fusion from C2 to T1, unchanged in alignment. 2.The screws associated with the anterior plate at C4 are broken, unchanged. > Interpreting Provider: Garcia Smith MD on 04/24/2025 12:15 PM Narrative 04/24/2025 12:15 PM CDT PROCEDURE: XR CERVICAL SPINE 2 OR 3VW DATE/TIME OF EXAM: 04/24/2025 11:44 AM CLINICAL INFORMATION: None relevant/not provided if blank. Indication: Z98.1: S/P cervical spinal fusion Additional History: COMPARISON: 05/02/2024. FINDINGS: There is again instrumented spinal fusion including posterior rods and screws at C2-T1 and an anterior plate, screws, and interbody fusion devices at C4-C6. Both screws associated with the anterior plate at C4 are broken, unchanged. Otherwise the hardware is intact and the vertebral alignment is unchanged. There is 2 mm anterolisthesis at C7-T1. Procedure Note Garcia Smith MD - 04/24/2025 PROCEDURE: XR CERVICAL SPINE 2 OR 3VW DATE/TIME OF EXAM: 04/24/2025 11:44 AM CLINICAL INFORMATION: None relevant/not provided if blank. Indication: Z98.1: S/P cervical spinal fusion Additional History: COMPARISON: 05/02/2024. FINDINGS: There is again instrumented spinal fusion including posterior rods and screws at C2-T1 and an anterior plate, screws, and interbody fusiondevices at C4-C6. Both screws associated with the anterior plate at C4 arebroken, unchanged. Otherwise the hardware is intact and the vertebral alignmentis unchanged. There is 2 mm anterolisthesis at C7-T1. IMPRESSION: 1.Instrumented spinal fusion from C2 to T1, unchanged in alignment. 2.The screws associated with the anterior plate at C4 are broken, unchanged. > Interpreting Provider: Garcia Smith MD on 04/24/2025 12:15 PM Mark Melo MD DIAGNOSTIC IMAGING ORDERABLES Fi nal Result * BASIC METABOLIC PANEL (CALCIUM TOTAL) (05/05/2024 1:36 AM CDT) BUN 12 7 - 26 mg/dL 05/05/2024 2:33 AM [facility] Creatinine 0.56 0.56 - 0.96 mg/dL 05/05/2024 2:33 AM [facility] Sodium 138 136 - 145 mmol/L 05/05/2024 2:33 AM [facility] Potassium 3.5 3.5 - 4.5 mmol/L 05/05/2024 2:33 AM [facility] Chloride 101 98 - 107 mmol/L 05/05/2024 2:33 AM [facility] CO2 28 22 - 29 mmol/L 05/05/2024 2:33 AM [facility] Glucose 111 70 - 115 mg/dL 05/05/2024 2:33 AM CDT [facility] Calcium 8.9 8.4 - 10.2 mg/dL 05/05/2024 2:33 AM T [facility] Anion Gap 9 6 - 16 05/05/2024 2:33 AM T [facility] BUN/Creatinine Ratio 21 7 - 23 05/05/2024 2:33 AM T [facility] Osmolality Calculated 286 275 - 295 mOsm/kg 05/05/2024 2:33 AM T [facility] eGFR by CKD-EPI >90 >=90 mL/min/1.7 3 m2 05/05/2024 2:33 AM T [facility] Blood BLOOD SPECIMEN / Unknown Lab Venipuncture / Unknown 05/05/2024 1:36 AM CDT 05/05/2024 2:09 AM CDT Mark Melo MD LAB - CHEMISTRY ORDERABLES Final Result Performing Organization Address City/State/[facility] de Phone Number [facility] [address] [place] [address], [facility] [phone] from Last 3 Months or Most Recently Relevant to Health Maintenance Insurance [employer] [place] [address] [facility] Advance Directives * Full Code (Latest Code Status on File) Date Activated Date Inactivated Comments 05/01/2024 12:04 PM 05/05/2024 12:42 PM Care Teams Decorating Machine Tender Relationship Specialty Start Date End Date Good White MD [address] [place] [phone] PCP - General Family Medicine 03/10/24
--- OUTSIDE RECORDS SUMMARY | 2025-07-13 00:41 | XMS_ITS | Clinical Summary ---
Author Organization [facility] Address [address] [place] [address] Care Team Providers Care Neurosurgery Physician Name Role Phone Renea Maciel CHIEF INFORMATION SECURITY OFFICER Primary Care Provider [phone] Allergies Active Allergy Reactions Criticality Noted Date Comments Wasp Venom Swelling 05/14/2025 Medications meloxicam 7.5 MG tablet Take 1 tablet (7.5 mg total) by mouth daily. Active Probiotic Product (PROBIOTIC ADVANCED) Cap Take by mouth daily. Active vitamin D2, ergocalciferol, (VITAMIN D, ERGOCALCIFEROL, ) 86111 UNITS capsule Take 1 capsule (50,000 Units total) by mouth. 3 times a month Active vitamin C 1000 MG tablet Take 2 tablets (2,000 mg total) by mouth daily. Active calcium, elemental, 600 MG tablet Take 1 tablet (600 mg total) by mouth daily. Active aspirin EC 81 MG tablet Take 1 tablet (81 mg total) by mouth daily. Active DULoxetine (CYMBALTA) 30 MG capsule Take 1 capsule (30 mg total) by mouth daily. Active DULoxetine (CYMBALTA) 60 MG capsule Take 1 capsule (60 mg total) by mouth daily. Active Magnesium 400 MG Cap Take 1 capsule by mouth 2 (two) times a day. Active Multiple Vitamins-Minera ls (CENTRUM SILVER ADULT 50+ OR) Take 1 tablet by mouth daily. Active clobetasol (TEMOVATE) 0.05 % cream Apply topically as needed. Active hydroxychloroqu ine (PLAQUENIL) 200 MG tablet Take 1 tablet (200 mg total) by mouth daily. Active ketoconazole (NIZORAL) 2 % cream Apply topically daily. 5 Active metoprolol tartrate (LOPRESSOR) 25 MG tablet Take 0.5 tablets (12.5 mg total) by mouth 2 (two) times daily. 5 Active HYDROcodone-hortensia taminophen (NORCO) 5-325 MG tabletIndicatio ns:Acute Pain < 7 Day Supply Take 1-2 tablets by mouth every 6 (six) hours as needed for Pain. Indications: Acute Pain < 7 Day Supply 40 tablet 5 Active Active Problems Problem Noted Date [...] and (< 1%). PAF (paroxysmal atrial fibrillation) 03/07/2021 Assessment & Plan (04/11/2021 12:30 PM [...] any rate or rhythm controlling medication. Her [id number] score is 0. Hyperlipidemia, mixed 03/07/2021 Assessment [...] to get her LDL less than 100. Encounters Date Type Department Care Team Description 05/25/2025 12:57 PM CDT Anesthesia Event [facility] [address] [place], [place] [address] [address] Lilibeth Cerda, Manolo Mcclendon MD 05/25/2025 12:45 PM CDT - 05/25/2025 2:45 PM CDT Surgery [facility] [address] [place] [id number] Timo Holloway, DO RIGHT SHOULDER ARTHROSCOPY WITH SUBACROMIAL DECOMPRESSION 05/25/2025 11:10 AM CDT Ancillary Procedure [facility] [address] [place] [address] Timo Holloway, 05/25/2025 11:01 AM CDT - 05/25/2025 5:08 PM CDT Hospital Encounter [facility] [address] [place] [id number] Timo Holloway, DO Discharge Disposition: Home or Self Care (Routine Discharge) 05/25/2025 Travel 05/16/2025 11:15 AM CDT - 05/16/2025 11:59 PM CDT Hospital Encounter [facility] [address] [place] [address] Timo Holloway, DO Discharge Disposition: Home or Self Care (Routine Discharge) 05/16/2025 Travel 05/14/2025 Travel 05/11/2025 Prep for Procedure [facility] [address] [place] [id number] Timo Holloway, from Last 3 Months Family History Medical History Relation Comments AAA Maternal Grandmother Relation Status Comments Father Maternal Grandmother Mother Alive Social History Tobacco Use Types Packs/Day Years Used Date Smoking Tobacco: Former Cigarettes Q uit: 05/2000 Smokeless Tobacco: Never Tobacco Cessation:Counseling Given: Not Answered Alcohol Use Standard Drinks/Week Comments Never 0 (1 standard drink = 0.6 oz pur e alcohol) Comments No Sex and Gender Information Value Date Recorded Sex Assigned at Not on file Legal Sex Female 7:57 PM CDT Gender Identity Not on file Sexual Orientation Not on file Last Filed Vital Signs Vital Sign Reading Time Taken Comments Blood Pressure 122/70 05/25/2025 4:43 PM CDT Pulse 86 05/25/2025 4:43 PM CDT Temperature 36.3 C (97.3 F) 05/25/2025 3:10 PM CDT Respiratory Rate 16 05/25/2025 4:43 PM CDT Oxygen Saturation 97% 05/25/2025 4:43 PM CDT Inhaled Oxygen Concentration - - Weight 72.6 kg (160 lb) 05/25/2025 11:26 AM CDT Height 165.1 cm (5' 5) 05/25/2025 11:26 AM CDT Body Mass Index 26.63 05/25/2025 11:26 AM CDT Plan of Treatment Health Maintenance [...] 2012 Zoster Vaccines (1 of 2) 2012 COVID-19 Vaccine ( - 2024-2 6 season) 2025 Influenza Adult (#1) 2025 RSV Immunization or 60+ Years (1 - 1-dose 75+ series) 2037 Hepatitis A Vaccines Aged Out No long er eligible based on patient's age to complete this topic Meningococcal B Vaccine Aged Out No l onger eligible based on patient's age to complete this topic Meningococcal Vaccine Aged Out No silverio juana eligible based on patient's age to complete this topic RSV Immunizations Under 20 Months Aged Out No longer eligible based on patient's age to complete this topic Medical Devices Implanted Type [employer] Device Identifier Shelf Expiration Date Model / Serial / Lot [place] Suture Bio-Swivelock C [employer] White/Black 4.75 X 19.1mm - [id number] Implanted:Qty: 1 on 05/25/2025 by Timo Holloway DO at [facility] [place] Right: Shoulder [employer] [id number] 10/23/2028 FORD-MARIA GUADALUPE CTT / / [id number] [place] Suture Bio-Swivelock C [employer] - [id number] Implanted:Qty: 1 on 05/25/2025 by Timo Holloway DO at [facility] [place] Right: Shoulder [employer] [id number] 02/23/[address] / / [id number] Cage Cage Spine Cervical 4.75mm Biocomposite Swivelock [place], Self Punching With White/Blue 1.3mm Suture Tape Implanted:Qty: 1 on 05/25/2025 by Timo Holloway DO at [facility] Right: Shoulder [id number] 01/23/2028 FORD-2324BSyl SP / / [id number] 4.75 Mm Biocomposite Swivelock [place], Self Punching With White/Blue 1.3mm Suture Tape Implanted:Qty: 1 on 05/25/2025 by Timo Holloway DO at [facility] Right: Shoulder [id number] 09/22/2028 [id number] SP / / [id number] Procedures Procedure Name Priority Date/Time Associated Diagnosis Comments PERIPHERAL BLOCK Routine 05/25/2025 1:02 PM CDT SCOPE SHOULD.W/ROT.CUFF REPAIR 05/25/2025 12:57 PM CDT M19.011 RIGHT SHOULDER OSTEOARTHRITIS S46.011D TRAUMATIC RIGHT ROTATOR CUFF TEAR Case Notes 05/24/2025 rep is aware per Jennyfer. Special Needs Block SHOULDER ARTHROSCOPY/SURGER Y 05/25/2025 12:57 PM CDT M19.011 RIGHT SHOULDER OSTEOARTHRITIS S46.011D TRAUMATIC RIGHT ROTATOR CUFF TEAR Case Notes 05/24/2025 rep is aware per Jennyfer. Special Needs Block US GD NDL PLACEMENT ANES Today 05/25/2025 11:06 AM CDT CBC W/DIFF AUTOMATED Routine 05/16/2025 11:20 AM CDT Pre-op testing MRSA SCREENING Routine 05/16/2025 11:19 AM CDT Pre-op testing from Last 3 Months Results * Interscalene Blok (05/25/2025 1:02 PM CDT) Narrative Manolo Calles MD - 05/25/2025 1:02 PM CDT Manolo Calles MD 05/25/2025 1:07 PM Interscalene Blok Performed by: Manolo Calles MD Authorized by: Kole Roach CRNA Procedure Start: 05/25/2025 12:19 PM Procedure Stop: 05/25/2025 12:33 PM Patient Location: Pre-op Reason for Block: at surgeon's request, post-op pain management and procedure for pain patient identified, IV checked, site marked, risks and benefits discussed, consent, monitors and equipment checked, pre-op evaluation and timeout performed Patient Position: Semi-recumbent Monitoring: Blood pressure, continuous pulse ox, ECG/EKG and heart rate Prep: Chlorhexidine Block Type: Brachial plexus and Interscalene Laterality: Right Injection Technique: Single-shot Technique: ultrasound guided Needle Type: Stimuplex Needle Gauge: 21 G Needle Length: 2 in Needle Localization: Anatomical landmarks, nerve stimulator, paresthesias and ultrasound guidance Local Volume: 20 Insertion Attempts: 1 Injection Assessment/ Attestation: Incremental injection, local visualized surrounding nerve on ultrasound, negative aspiration for heme, no apparent complications, no paresthesia on injection and paresthesia absent Heart Rate Change: No Anesthesiology Interscalene Block Procedure Note Indications: 1.) Post-operative pain control 2.) Specifically requested for management of pain by Dr. Holloway. Pre-procedural preparation: Prior to the procedure, the benefits, risks, and course of the interscalene nerve block were discussed with the patient. All of the patient's questions were answered and consent was obtained. A time-out was performed, the operative side was confirmed with the patient and the surgical consent, and the operative site was marked. IV Sedation given: -midazolam 2 mgs IVP. Description of the procedure: The patient was placed in a supine position. Pulse oximeter, blood pressure cuff , and EKG leads were attached to the patient. The patient's right neck was cleaned with chlorhexadine solution. Using live ultrasound-guidance, the right brachial plexus was located between the anterior and middle scalene muscles. A B-Deleon #21, 50 mm (2 inch) Stimuplex A needle was slowly advanced toward the brachial plexus under live ultrasound-guidance. Prior to injection of local anesthesia, there was negative heme aspiration from the needle. 0.5% ropivacaine for a total volume of 30.0 ccs was slowly injected. Injection was easy, and negative heme aspiration was confirmed after each 5 mL of local anesthesia was injected. The patient denied any pain with injection of the local anesthetic. There were no EKG changes during the injection. At the end of the procedure, the ultrasound image confirmed good local anesthetic spread around the brachial plexus. The needle was removed, and the patient's neck was again cleaned. The patient tolerated the procedure without event, and there were no apparent complications. The patient was monitored in the Outpatient Room 10 prior to going to the operating room for surgery. us Kole Roach MEDIA/INSTRUCTIONAL DESIGNER TX ANESTHESIA Final Resul t * US GD NDL PLACEMENT ANES (05/25/2025 11:06 AM CDT) Anatomical Region Laterality Modality NA Ultrasound 05/25/2025 11:1 0 AM CDT Narrative 05/25/2025 11:10 AM CDT This report does not contain a radiologist's interpretation. Please review associated procedure and/or operative report. Procedure Note Nohemi Black Conversion, - 06/08/2025 This report does not contain a radiologist's interpretation. Please review associated procedure and/or operative report. Timo Holloway DO ULTRASOUND Final Result * (ABNORMAL) CBC W/DIFF AUTOMATED (05/16/2025 11:20 AM CDT) WBC 4.93 4.4 - 11.0 x10'3/uL 05/16/2025 11:29 AM CDT [facility] RBC 4.25(L) 4.50 - 5.10 x10'6/uL 05/16/2025 11:29 AM CDT [facility] HGB 13.8 12.3 - 15.3 G/DL 05/16/2025 11:29 AM CDT [facility] HCT 40.2 35.9 - 44.6 % 05/16/2025 11:29 AM CDT [facility] MCV 94.6 80.0 - 96.0 FL 05/16/2025 11:29 AM CDT [facility] MCH 32.5(H) 25.3 - 30.9 PG 05/16/2025 11:29 AM CDT [facility] MCHC 34.3(H) 31.0 - 34.1 G/DL 05/16/2025 11:29 AM CDT [facility] RDW 12.8 12.4 - 15.1 % 05/16/2025 11:29 AM CDT [facility] PLT 194 151 - 353 x10'3/uL 05/16/2025 11:29 AM CDT [facility] MPV 10.5 9.6 - 12.0 FL 05/16/2025 11:29 AM CDT [facility] RBC MORPHOLOGY NORMAL 05/16/2025 11:29 AM CDT [facility] PLT MORPH. NORMAL 05/16/2025 11:29 AM CDT [facility] WBC MORPHOLOGY NORMAL 05/16/2025 11:29 AM CDT [facility] LYMPHOCYTES % 29.4 15.8 - 45.0 % 05/16/2025 11:29 AM CDT [facility] NEUTROPHILS % 54.6 42.1 - 71.9 % 05/16/2025 11:29 AM CDT [facility] MONOCYTES % 7.5 5.7 - 12.5 % 05/16/2025 11:29 AM CDT [facility] EOSINOPHILS 6.9(H) 0.0 - 5.6 % 05/16/2025 11:29 AM CDT [facility] BASOPHILS 1.4(H) 0.0 - 1.3 % 05/16/2025 11:29 AM CDT [facility] ABS. NEUTROPHILS 2.69 1.40 - 6.00 x10'3/uL 05/16/2025 11:29 AM CDT [facility] IMMATURE GRANS % 0.2 0.0 - 0.5 % 05/16/2025 11:29 AM CDT [facility] ABS. LYMPHOCYTES 1.45 0.80 - 4.70 x10'3/uL 05/16/2025 11:29 AM CDT [facility] 05/16/2025 11:2 0 AM CDT Timo Holloway DO LABORATORY Final Result [facility] [address] [place] [address], * MRSA SCREENING (05/16/2025 11:19 AM CDT) SPEC DESCRIPTION NASAL 05/16/2025 11:19 AM CDT [facility] SPECIAL REQUESTS NO SPECIAL REQUEST 05/16/2025 11:19 AM CDT [facility] CULTURE RESULT NO METHICILLIN RESISTANT STAPHYLOCOCCUS AUREUS ISOLATED 05/17/2025 10:36 AM CDT [facility] SPECIMEN FROM INTERNAL NOSE / Unknown 05/16/2025 11:19 AM CDT 05/16/2025 11:20 AM CDT Timo Holloway DO MICROBIOLOGY - GENERAL ORDERABLE S Final Result Performing Organization Address City/State/[facility] Co de Phone Number [facility] [address] [place] [address], [place] [phone] [facility] [address] [place] [address], [place] [phone] from Last 3 Months Insurance [employer] [address] [place] [address] [address] GENERIC - WORK COMP MISSY ZHENG [id number] Advance Directives * Full Code (Latest Code Status on File) Date Activated Date Inactivated Comments 03/25/2021 2:05 PM 03/25/2021 4:44 PM Care Teams Neurosurgery Physician Relationship Specialty Start Date End Date Renea Maciel, CHIEF INFORMATION SECURITY OFFICER [address] [place] [address] PCP - General Nurse Practitioner Family 02/01/25
--- OUTSIDE RECORDS SUMMARY | 2025-07-13 00:41 | XMS_ITS | Patient Health Record ---
Author Organization [facility] nereyda Address [address] [place] [address] Care Team Providers Care Maintenance Tech Name Role Phone Renea Vickers Primary Care Provider Malick Kathryn Kate Unavailable [phone] Allergies Allergen (clinical drug ingredient) Drug/Non Drug Allergy documented on EMR Reaction Allergy Type Onset Date Status Bee Sting Unknown Allergy Active Results Component Value Reference Range Notes CHRISTINA SCREEN/REFLEX TITER/VALENTIN JOAQUIN Reviewed date:11/22/2024 09:36:02 PM Interpretation: Performing Lab:[facility], [address] [place] [address], [id number] Notes/Report: Anti-Nuclear Antibody Negative Negative CHRISTINA titers and patterns are performed using an immunofluorescence assay technology. Follow up testing for positive specimens, if required, is performed using multiplex bead technology. DNA (DS) ANTIBODY Reviewed date:11/22/2024 09:36:02 PM Interpretation: Performing Lab:[facility], [address] [place] [address], [id number] Notes/Report: dsDNA Antibody <1 0-4 IU/mL dsDNA Antibody Interpretation Negative Negative WEBB / PET HANDLER ANTIBODY Reviewed date:11/22/2024 09:36:02 PM Interpretation: Performing Lab:[facility], [address] [place] [address], [id number] Notes/Report: PET HANDLER SM Antibody <0.2 0.0-0.9 AI PET HANDLER SM Interpretation Negative Negative SSA/SSB ANTIBODY (SJOGREN'S) Reviewed date:11/22/2024 09:36:02 PM Interpretation: Performing Lab:[facility], [address] [place] [address], [id number] Notes/Report: SSA Ro Antibody <0.2 0.0-0.9 AI SSA Ro Interpretation Negative Negative SSB La Antibody <0.2 0.0-0.9 AI SSB La Interpretation Negative Negative SCLERODERMA ANTIBODY 70 (SCL -70) Reviewed date:11/22/2024 09:36:02 PM Interpretation: Performing Lab:[address], [id number] Notes/Report: SCL 70 Antibody <0.2 0.0-0.9 AI SCL 70 Interpretation Negative Negative G6PD, QUANTITATIVE, RBC Reviewed date:11/22/2024 09:36:02 PM Interpretation: Performing Lab:[address], [address] Notes/Report: G-6-PD, RBC 16.2 7.0-20.5 U/g Hgb Performing Organization Information: Site ID: Name: [facility] Address: [address] [place] [id number] Director: Marty Caruso CYCLIC CITRULLINATED PEPTIDE (CCP) AB, IgG/IgA Reviewed date:11/22/2024 09:36:02 PM Interpretation: Performing Lab:[address], [address] Notes/Report: CCP Antibodies 7 0-19 units Negative <20 Weak positive 20 - 39 Moderate positive 40 - 59 Strong positive >59 Performed at: [address] [place] [id number] Network Operations Manager: Gregg Mak PhD, Phone: [phone] SEDIMENTATION RATE, ESR Reviewed date:11/22/2024 09:36:01 PM Interpretation: Performing Lab:[address], [address] Notes/Report: Sedimentation Rate 8 (Based on doc umented legal sex) 0-30 mm/Hour CBC W/DIFF Reviewed date:11/22/2024 09:36:01 PM Interpretation: Performing Lab:[address], [address] Notes/Report: WBC 5.1 3.5-10.5 10'3/uL RBC 4.38 (Based on docume nted legal sex) 3.80-5.20 10'6/uL HGB 13.8 (Based on docume nted legal sex) 11.6-15.4 g/dL HCT 41.4 (Based on docume nted legal sex) 34.0-45.0 % MCV 94.5 80.0-99.0 fL MCH 31.5 27.0-34.0 pg MCHC 33.3 32.0-35.5 g/dL RDW 12.7 11.0-15.0 % PLT 187 150-400 10'3/uL MPV 11.7 8.8-12.1 fL Neutrophils 50.9 34.0-73.0 % Lymphocytes 33.0 15.0-50.0 % Monocytes 9.8 1.0-15.0 % Eosinophils 5.7 0.0-8.0 % Basophils 0.6 0.0-2.0 % Immature Granulocytes 0.0 No defined reference range % Immature Granulocytes (IG) represents automated enumeration of Metamyelocytes, Myelocytes and Promyelocytes when IG is < 5%. Blasts are not included in IG and reported separately if present. Absolute Neutrophils 2.6 1.5-8.0 10'3/uL Absolute Lymphocytes 1.7 1.0-4.0 10'3/uL Absolute Monocytes 0.5 0.2-1.0 10'3/uL Absolute Eosinophils 0.3 0.0-0.6 10'3/uL Absolute Basophils 0.0 0.0-0.3 10'3/uL Absolute Immature Granulocytes 0.0 0.00-0.10 10'3/uL Reference ranges for nonbinary/intersex or unspecified gender patients have not been established. Please refer to the following table for ranges established for cisgender patients and evaluate in the clinical context of the individual patient: [email or web address]://[email or web address].nm.org/ge nderx C3 AND C4 COMPLEMENTS Reviewed date:11/22/2024 09:36:01 PM Interpretation: Performing Lab:[facility], [address] [place] [address], [id number] Notes/Report: Complement C3, Serum 121 87-200 mg/dL Complement C4, Serum 28 19-52 mg/dL CMP(COMPREHENSIVE METABOLIC PANEL) Reviewed date:11/22/2024 09:36:01 PM Interpretation: Performing Lab:[facility], [address] [place] [address], [id number] Notes/Report: Sodium 142 133-146 mmol/L Potassium 4.1 3.5-5.1 mmol/L Chloride 105 98-107 mmol/L Carbon Dioxide 30 21-31 mmol/L Anion Gap 7 4-13 mmol/L Blood Urea Nitrogen 15 7-25 mg/dL Creatinine 0.61 0.60-1.30 mg/dL eGFRcr (CKD-EPI 2020) >90 >=60 mL/min/1.73 m2 Calcium 9.2 8.3-10.5 mg/dL Glucose 70 70-100 mg/dL Protein, Total 6.7 6.4-8.3 g/dL Albumin 4.1 3.5-5.0 g/dL ALT 18 9-43 units/L Alkaline Phosphatase 70 34-104 units/L AST 15 13-39 units/L Bilirubin, Total 0.5 0.2-1.2 mg/dL CK Reviewed date:11/22/2024 09:36:01 PM Interpretation: Performing Lab:[facility], [address] [place] [address], [id number] Notes/Report: CK, Total 61 26-192 units/L RHEUMATOID FACTOR (RF), MAXIME TITATIVE Reviewed date:11/22/2024 09:36:01 PM Interpretation: Performing Lab:[facility], [address] [place] [address], [id number] Notes/Report: Rheumatoid Factor, Quantitative Interpretation Negative Negative RF, Quantitation <10 <=14 IU/mL CRP (C-REACTIVE PROTEIN) Reviewed date:11/22/2024 09:36:01 PM Interpretation: Performing Lab:[facility], [address] [place] [address], [id number] Notes/Report: C-Reactive Protein 2.9 0.0-10.0 mg/L Reason For Referral No Information Medications Medication SIG (Take, Route, Frequency, Duration) Notes Start Date End Date Status DULoxetine HCl 60 MG 1 capsule Orally On ce a day; Duration: 30 day(s) Active Metoprolol Succinate 25 MG 1/2 capsule O rally twice a day; Duration: 30 day(s) Active Probiotic Active DULoxetine HCl 30 MG 1 capsule Orally On ce a day; Duration: 30 day(s) Active Calcium 600 MG 1 tablet with meals Orally Twice a day; Duration: 30 day(s) Active Aspirin 81 81 MG 1 tablet Orally Once a day; Duration: 30 day(s) Active Vitamin C 1000 MG 1 tablet Orally Once a day; Duration: 30 day(s) Active Magnesium 400 MG 1 tablet Orally twic e a day Active Vitamin D2 50,000 weekly Activ e Meloxicam 7.5 MG 1 tablet Orally ever y other day; Duration: 30 day(s) Active Social History Tobacco Use: Social History Observation Description Date Details (start date - stop date) Former Smoker NA - NA Household Question Answer Notes Marital status: Number of adults in household: 0 Tobacco Control (Standard) Question Answer Notes Tobacco use: Former smoker How long has it been since you last smoked? Grea ter than 10 years Problems Problem Type SNOMED Code ICD Code Onset Dates Problem Status W/U Status Risk Notes Problem Rheumatoid arthritis (93250143) Rheumatoid arthritis without rheumatoid factor, multiple sites (M06.09) Active confirmed Problem Generalized osteoarthritis (443550093) Generalized osteoarthritis (M15.9) Active confirmed Vital Signs Heart Rate 84 /min 11/20/2024 Temperature 98.4 degrees Fahrenheit 11/20/2024 Height-cm 165.1 cm 11/20/2024 Blood pressure diastolic 72 mm Hg 11/20/2024 Weight-kg 74.39 kg 11/20/2024 Height 65 in 11/20/2024 Blood pressure systolic 128 mm Hg 11/20/2024 Weight 164.0 lbs 11/20/2024 BMI 27.29 kg/m2 11/20/2024 Encounters Encounter Location Date Provider Diagnosis [facility] [address] [address] 11/20/2024 Kathryn Ramos Rheumatoid arthritis without rheumatoid factor, multiple sites M06.09 ; Generalized osteoarthritis M15.9 ; Pain in right hand M79.641 ; Pain in left hand M79.642 and Nail disorder L60.9 [facility] [address] [address] 12/04/2024 Kathryn Ramos Rheumatoid arthritis without rheumatoid factor, multiple sites M06.09 ; Generalized osteoarthritis M15.9 ; Pain in right hand M79.641 ; Pain in left hand M79.642 and Nail disorder L60.9 [facility] [address] [address] 11/07/2024 Kathryn Ramos Assessments Encounter Date Diagnosis (ICD Code) Assessment Notes Treatment Notes Treatment Clinical Notes Section Notes 11/20/2024 Rheumatoid arthritis without rheumatoid factor, multiple sites (ICD-10 - M06.09) 64 year old female with seronegative rheumatoid arthritis. She has active synovitis on examination. Serologies will be ordered. Consider plaquenil. Refer to dermatology for thumbnail disorder (fungal vs psoriatic?) Thank you for referring this patient. ankit Maciel [facility] 11/20/2024 Generalized osteoarthritis (ICD-10 - M15.9) 64 year old female with seronegative rheumatoid arthritis. She has active synovitis on examination. Serologies will be ordered. Consider plaquenil. Refer to dermatology for thumbnail disorder (fungal vs psoriatic?) Thank you for referring this patient. ankit Maciel [facility] 12/04/2024 Rheumatoid arthritis without rheumatoid factor, multiple sites (ICD-10 - M06.09) labs discussed with patient, seronegative, +synovitis on previous exam, start plaquenil 400mg/day, return in 3 months 12/04/2024 Generalized osteoarthritis (ICD-10 - M15.9) labs discussed with patient, seronegative, +synovitis on previous exam, start plaquenil 400mg/day, return in 3 months 11/20/2024 Pain in right hand (ICD-10 - M79.641) 64 year old female with seronegative rheumatoid arthritis. She has active synovitis on examination. Serologies will be ordered. Consider plaquenil. Refer to dermatology for thumbnail disorder (fungal vs psoriatic?) Thank you for referring this patient. ankit Maciel [facility] 11/20/2024 Pain in left hand (ICD-10 - M79.642) 64 year old female with seronegative rheumatoid arthritis. She has active synovitis on examination. Serologies will be ordered. Consider plaquenil. Refer to dermatology for thumbnail disorder (fungal vs psoriatic?) Thank you for referring this patient. ankit Maciel [facility] 12/04/2024 Pain in right hand (ICD-10 - M79.641) labs discusse d with patient, seronegative, +synovitis on previous exam, start plaquenil 400mg/day, return in 3 months 12/04/2024 Pain in left hand (ICD-10 - M79.642) labs discusse d with patient, seronegative, +synovitis on previous exam, start plaquenil 400mg/day, return in 3 months 11/20/2024 Nail disorder (ICD-10 - L60.9) 64 year old female with seronegative rheumatoid arthritis. She has active synovitis on examination. Serologies will be ordered. Consider plaquenil. Refer to dermatology for thumbnail disorder (fungal vs psoriatic?) Thank you for referring this patient. ankit Maciel, RN RESOURCE NURSE-BC 12/04/2024 Nail disorder (ICD-10 - L60.9) labs discussed with patient, seronegative, +synovitis on previous exam, start plaquenil 400mg/day, return in 3 months Plan Of Treatment No Information Insurance Providers Payer Name Payer Address Payer Phone Subscriber Number Group Number Insured Name Patient Relationship to Insured Coverage Start Date Coverage End Date [employer] [place] [address] [place] [address] [id number] [place] Anderson Self - patient is the insured Medical (General) History Medical History History ICD Code seronegative rheumatoid arth ritis, GERD, depression, osteoporosis, SVT, atrial fibrillation Surgical History Surgery Date(Month/Year) tubal ligation, carpal tunne l release, cervical spinal fusion, foot surgery
--- OUTSIDE RECORDS SUMMARY | 2025-07-13 00:41 | XMS_ITS | Encounter Summary ---
Author Organization [facility] Address [address] [place] [address] Care Team Providers Care Marketing Planner Name Role Phone None, Provider Primary Care Provider Zora Leone DO Primary Care Provider Renea Naik SOCIOLOGY RESEARCH ASSISTANT Primary Care Provider [phone] Encounter Details Date Type Department Care Team (Late st Contact Info) Description 03/24/2021 Hospital Orders Only [facility] Mirror Inspector [place], [place] [id number] Braulio Hickman MD [facility]. [facility] [address] [place] [address] Social History Tobacco Use Types Packs/Day Years [...] Status No Risk Indicated 03/25/2021 9:31 AM Jessica Patel RN Active * [place] Suicide Severity Rating Scale (Screener/Recent Self-Report) Question [...] on filedocumented in this encounter Care Teams Marketing Planner Relationship Specialty Start Date End Date None, Provider, PCP - General 02/21/21 03/25/21 Zora Ruano DO PCP - General FAMILY PRACTICE 03/26/21 01/31/25 Renea Maciel, SOCIOLOGY RESEARCH ASSISTANT [address] [place] [address] PCP - General Nurse Practitioner Family 02/01/25 documented as of this encounter
[2025-07-13 07:10] VITALS: BP 117/75; PULSE 79; RESP 16; TEMP 36.5; O2SAT 100; BMI 28.0
[2025-07-13] MEDS: LACTATED RINGERS 1,000 ML 150 ML IV CONT (07:21)
--- NOTE | 2025-07-13 07:50 | WPDANESEPPF ---
Anes - Initial Pre Proc Eval Procedure: Operation Date: 07/13/25 08:30 Proposed Procedures p Screening Colonoscopy - Lyndon Rizo MD Date/Time: 07/13/25 07:50 Surgeon: Lyndon Rizo MD Pre Op Diagnosis: Personal history of colon polyps, unspecified Patient Data Age: 64 Gender: F Height: 1.63 m Weight: 74.2 kg Last Vital Signs Temp 97.7 F 07/13/25 07:10 Pulse 79 07/13/25 07:10 Resp 16 07/13/25 07:10 BP 117/75 07/13/25 07:10 Pulse Ox 100 07/13/25 07:10 O2 Del Method Room Air 07/13/25 07:10 Allergies Allergy/AdvReac Type Severity Reaction Status Date / Time venom-wasp Allergy Severe Hives Verified 07/13/25 07:08 Home Medications ?Medication ?Instructions ?Recorded ?Confirmed ?Type aspirin 81 mg chewable tablet 81 mg PO DAILY 12/08/19 07/13/25 History (Sarah Chewable Low Dose Aspirin) Lactobacillus 1 cap PO DAILY 01/31/20 07/13/25 History acidophilus-Bifidobac.animalis 2.5 billion cell capsule (Daily Probiotic) calcium carbonate (Calcium 600) 1 mg PO BID 01/31/20 07/13/25 History ascorbic acid (vitamin C) 1,000 mg 2 g PO DAILY 09/19/20 07/13/25 History tablet ergocalciferol (vitamin D2) 50 mcg 50 mcg PO WEEKLY 09/19/20 06/27/25 History (2,000 unit) tablet metoprolol tartrate 25 mg tablet See Rx Instructions .Route 09/20/23 07/13/25 Rx .COMPLEX #90 tabs Daily Multivitamin 1 tab-cap PO DAILY 07/03/24 07/13/25 History magnesium oxide 400 mg (241.3 mg 400 mg PO BID 09/04/24 07/13/25 History magnesium) tablet meloxicam 7.5 mg tablet 7.5 mg PO DAILY PRN pain #90 tabs 09/04/24 07/13/25 Rx hydroxychloroquine 200 mg tablet 200 mg PO BID #180 tabs 03/05/25 07/13/25 Rx (Sovuna) duloxetine 60 mg capsule,delayed 60 mg PO DAILY #90 caps 03/12/25 07/13/25 Rx release duloxetine 30 mg capsule,delayed 30 mg PO DAILY #90 caps 04/20/25 07/13/25 Rx release Patient hx anesthesia problems: none Family hx anesthesia problems: none Results Review: All pre-operative results and documents have been reviewed as part of the pre-operative evaluation. [facility] Past Medical History Medical History Claustrophobia Seronegative rheumatoid arthritis of both hands Depression Osteoporosis Anxiety SVT (supraventricular tachycardia) GERD (gastroesophageal reflux disease) Surgical History Surgical History History of laparoscopic appendectomy 11/29/[address] Baker History of tubal ligation History of carpal tunnel release S/P cervical spinal fusion H/O foot surgery Family History Family History Mother Family history of thyroid disease Carcinoma of colon Grandparent Family history of psoriasis Family history of malignant neoplasm Family history of congestive heart failure Father Family history of lung cancer Family history of malignant neoplasm Other Family history of cardiovascular disease Hypertension Social History Social History Smoking packs per day: 0.5 Smoking cigarettes per day: 10.0 Years smoked: 20 Smoking pack-years: 10.00 Smoking status: Former smoker Tobacco type: cigarettes Second hand tobacco smoke exposure: No Smoking end date: 07/26/98 Alcohol intake: never Substance use: never Substance use type: does not use Lack of Transportation: No Lack of Food: Never True Current Housing: I Have Housing Concerned About Future Housing: No Difficulty Paying Gas/Electric Bills: No Difficulty Paying for Meds: No Currently Unemployed: No Education: High School Diploma/GED Difficulty w/ Childcare or Family Care: No Living arrangements: with family Occupation/Education: retired Gender identity (if verbalized by the patient): Female Spiritual care concerns: No Agree to blood products: Yes Anes - Eval Final PreProcedure Day of Procedure 07/13/25 07:50 Patient weight: overweight Lungs: normal air movement Airway: Mallampati scale class II Neurological: alert and oriented Last oral intake: >/= 8 hours ASA classification: II Emergent: no Anesthetic plan: proceed Anesthesia type and monitoring: general GIVS and standard monitoring Results Review: All pre-operative results and documents have been reviewed as part of the pre-operative evaluation. Hx of SVT/afib, on b olegario taken last pm. Informed Consent: The patient's anesthetic plan and its attendant risks and benefits were discussed with the patient/family/POA. Questions were solicited and answers provided to the satisfaction of the patient/family/POA.
--- NOTE | 2025-07-13 08:17 | PM.IMHP2 ---
H&P: HPI History of Present Illness Date/Time: 07/13/25 08:17 Chief Complaint: Family history of colon cancer, history of polyps Narrative: This patient has family history of colorectal cancer. Her mother had at 60 years old. Last year she underwent a colonoscopy but the prep was poor. however, a small adenoma was found. She is coming today with a 2 day prep for repeat colonoscopy. Review of Systems Review of Systems: All systems reviewed & are unremarkable except as noted in HPI and below PMFSH Past Medical History Medical History Claustrophobia Seronegative rheumatoid arthritis of both hands Depression Osteoporosis Anxiety SVT (supraventricular tachycardia) GERD (gastroesophageal reflux disease) Surgical History Surgical History History of laparoscopic appendectomy 11/29/[address] Baker History of tubal ligation History of carpal tunnel release S/P cervical spinal fusion H/O foot surgery Family History Family History Mother Family history of thyroid disease Carcinoma of colon Grandparent Family history of psoriasis Family history of malignant neoplasm Family history of congestive heart failure Father Family history of lung cancer Family history of malignant neoplasm Other Family history of cardiovascular disease Hypertension Social History Social History Smoking packs per day: 0.5 Smoking cigarettes per day: 10.0 Years smoked: 20 Smoking pack-years: 10.00 Smoking status: Former smoker Tobacco type: cigarettes Second hand tobacco smoke exposure: No Smoking end date: 07/26/98 Alcohol intake: never Substance use: never Substance use type: does not use Lack of Transportation: No Lack of Food: Never True Current Housing: I Have Housing Concerned About Future Housing: No Difficulty Paying Gas/Electric Bills: No Difficulty Paying for Meds: No Currently Unemployed: No Education: High School Diploma/GED Difficulty w/ Childcare or Family Care: No Living arrangements: with family Occupation/Education: retired Gender identity (if verbalized by the patient): Female Spiritual care concerns: No Agree to blood products: Yes Meds Home Medications and Allergies Home Medications ?Medication ?Instructions ?Recorded ?Confirmed ?Type aspirin 81 mg chewable tablet 81 mg PO DAILY 12/08/19 07/13/25 History (Sarah Chewable Low Dose Aspirin) Lactobacillus 1 cap PO DAILY 01/31/20 07/13/25 History acidophilus-Bifidobac.animalis 2.5 billion cell capsule (Daily Probiotic) calcium carbonate (Calcium 600) 1 mg PO BID 01/31/20 07/13/25 History ascorbic acid (vitamin C) 1,000 mg 2 g PO DAILY 09/19/20 07/13/25 History tablet ergocalciferol (vitamin D2) 50 mcg 50 mcg PO WEEKLY 09/19/20 06/27/25 History (2,000 unit) tablet metoprolol tartrate 25 mg tablet See Rx Instructions .Route 09/20/23 07/13/25 Rx .COMPLEX #90 tabs Daily Multivitamin 1 tab-cap PO DAILY 07/03/24 07/13/25 History magnesium oxide 400 mg (241.3 mg 400 mg PO BID 09/04/24 07/13/25 History magnesium) tablet meloxicam 7.5 mg tablet 7.5 mg PO DAILY PRN pain #90 tabs 09/04/24 07/13/25 Rx hydroxychloroquine 200 mg tablet 200 mg PO BID #180 tabs 03/05/25 07/13/25 Rx (Sovuna) duloxetine 60 mg capsule,delayed 60 mg PO DAILY #90 caps 03/12/25 07/13/25 Rx release duloxetine 30 mg capsule,delayed 30 mg PO DAILY #90 caps 04/20/25 07/13/25 Rx release Allergies Allergy/AdvReac Type Severity Reaction Status Date / Time venom-wasp Allergy Severe Hives Verified 07/13/25 07:08 Vital Signs Vital Signs - 24 hr 07/13/25 07:10 Temperature 97.7 F Pulse Rate 79 Respiratory Rate 16 Blood Pressure 117/75 Pulse Oximetry 100 Oxygen Delivery Room Air Exam Const: General: cooperative and healthy appearing Resp: Effort & Inspection: normal respiratory effort and able to speak in complete sentences Auscultation: clear to auscultation bilaterally Cardio: Rate: regular rate Rhythm: regular rhythm GI: Inspection: normal to inspection GI Palp: No No hepatosplenomegaly present Auscultation: normal bowel sounds Rectal Exam: deferred Skin: General skin exam: normal color Psych: Appearance: grossly normal Mental Status: mental status grossly normal Assessment and Plan Assessment and plan (1) Family history of colon cancer: Code(s): Z80.0 - Family history of malignant neoplasm of digestive organs Status: Acute Assessment and Plan: The patient is deemed a good candidate for the procedure. Consent signed. Will proceed. Prior Studies I have reviewed the following patient records and this information was taken into consideration when formulating the assessment and plan.: previous labs, previous ER visits, previous hospitalizations and previous clinic visits
[2025-07-13 08:44] VITALS: BP 101/54; PULSE 80; RESP 16; O2SAT 100
[2025-07-13 08:54] VITALS: BP 96/56; PULSE 82; RESP 20; O2SAT 100
[2025-07-13 09:04] VITALS: BP 103/57; PULSE 79; RESP 17; O2SAT 100
== END 2025-07-13 09:11 | disposition home or self-care (01) ==
PROVIDERS: PCP Nurse Practitioner Family; Referring Provider Internal Medicine Gastroenterology; Visit Provider Internal Medicine Gastroenterology
PROC: 0DJD8ZZ Inspection of Lower Intestinal Tract, Via Natural or Artificial Opening Endoscopic (ICD-10-PCS; CPT 45378; principal; 2025-07-13 08:30)
DX: Z09 Encounter for follow-up examination after completed treatment for conditions other than malignant neoplasm (principal); K64.8 Other hemorrhoids; K21.9 Gastro-esophageal reflux disease without esophagitis; M81.0 Age-related osteoporosis without current pathological fracture; I48.91 Unspecified atrial fibrillation; F32.A Depression, unspecified; F41.9 Anxiety disorder, unspecified; F40.240 Claustrophobia; M06.042 Rheumatoid arthritis without rheumatoid factor, left hand; M06.041 Rheumatoid arthritis without rheumatoid factor, right hand; I47.10 Supraventricular tachycardia, unspecified; Z79.82 Long term (current) use of aspirin; Z98.890 Other specified postprocedural states; Z98.51 Tubal ligation status; Z98.1 Arthrodesis status; Z87.891 Personal history of nicotine dependence; Z86.0100 Personal history of colon polyps, unspecified; Z80.0 Family history of malignant neoplasm of digestive organs; Z80.1 Family history of malignant neoplasm of trachea, bronchus and lung; Z82.49 Family history of ischemic heart disease and other diseases of the circulatory system
CPT/HCPCS: 45378; J2003; J2704; J7120